=== PATIENT | female | born 1955 | race Caucasian/White ===

== ENCOUNTER → 2017-10-31 13:50 | Outpatient (CLI) | payer OTHER, SELFPAY ==
[2017-10-31 13:57] LABS: Bacteria Urine None Seen; RBC Urine None Seen (0-5/HPF); WBC Urine None Seen (0-5/HPF)
[2017-10-31 14:51] LABS: Add Manual Diff / Slide Review NO; Basophils Percent Auto 0.7 % (0-2); Eosinophils Percent Auto 1.7 % (2-4); Hematocrit 39.2 % (36-46); Lymphocytes Percent Auto 18.3 % (25-40); Mean Corpuscular HGB Conc 33.1 % (30-36); Mean Corpuscular Hemoglobin 29.6 PG (26-34); Mean Corpuscular Volume 89.6 fL (80-100); Monocytes Percent Auto 7.2 % (3-14); Neutrophils Absolute Auto 5300 /uL (3000-5900); Neutrophils Percent Auto 72.1 % (50-75); Platelet Count 292 X10^3/uL (150-400); Red Blood Cell Count 4.38 X10^6/uL (4.0-5.2); Red Cell Distribution Width 14.7 % (11.6-14.8); White Blood Cell Count 7.4 X10^3/uL (4.5-11.0)
[2017-10-31 15:21] LABS: Alanine Aminotransferase 21 IU/L (9-52); Albumin Globulin Ratio 1.5 (1.0-2.8); Alkaline Phosphatase 59 U/L (38-126); Aspartate Aminotransferase 18 IU/L (14-36); BUN Creatinine Ratio 18.8 (6-22); Bilirubin Total 0.8 mg/dL (0.2-1.3); Blood Urea Nitrogen 15 mg/dL (7-17); Calcium 8.9 mg/dL (8.4-10.2); Carbon Dioxide 30 mmol/L (22-32); Chloride 97 mmol/L (98-107); Estimated Glomerular Filt Rate > 60.0 mL/min (>60); Globulin 2.7 g/dL (1.7-4.1); Glucose 123 mg/dL (80-110); HEMOLYSIS < 15 (0-50); Potassium 3.7 mmol/L (3.4-5.1); Sodium 135 mmol/L (137-145); Total Protein 6.7 g/dL (6.3-8.2)
[2017-10-31 15:22] LABS: Appearance Urine UA CLEAR; Bilirubin Urine UA NEGATIVE (NEGATIVE); Color Urine UA YELLOW; Glucose Urine UA NEGATIVE (Normal); Ketones Urine UA NEGATIVE (NEGATIVE); Leukocyte Esterase Urine UA NEGATIVE (NEGATIVE); Nitrite Urine UA Negative (Negative); Occult Blood Urine UA NEGATIVE (Negative); Protein Urine UA NEGATIVE (Negative); Specific Gravity Urine UA <=1.005 (1.000-1.035); Urobilinogen Urine UA 0.2 E.U./dL (0.2); pH Urine UA 6.5 (4.5-8.0)
[2017-10-31 16:07] LABS: Culture Indicated Urine Cult Not Indicated; Squamous Epithelial Cell Urine 0-1 /HPF
[2017-10-31 17:55] LABS: Hemoglobin A1C% w Est Avg Glu 5.7 % (4.0-6.0)
== END ==
PROVIDERS: Family Provider Family Medicine; PCP Family Medicine; Visit Provider Internal Medicine
DX: R63.8 Other symptoms and signs concerning food and fluid intake (principal); R53.83 Other fatigue; R39.11 Hesitancy of micturition; R73.9 Hyperglycemia, unspecified
CPT/HCPCS: 36415; 80053; 81001; 83036; 84443; 85025

== ENCOUNTER → 2018-04-12 11:28 | Outpatient (CLI) | payer OTHER, SELFPAY ==
[2018-04-12 12:43] LABS: Appearance Urine UA CLEAR; Bilirubin Urine UA NEGATIVE (NEGATIVE); Color Urine UA YELLOW; Glucose Urine UA NEGATIVE (Normal); Ketones Urine UA NEGATIVE (NEGATIVE); Leukocyte Esterase Urine UA NEGATIVE (NEGATIVE); Nitrite Urine UA NEGATIVE (Negative); Occult Blood Urine UA TRACE-INTACT (Negative); Protein Urine UA NEGATIVE (Negative); Urobilinogen Urine UA 0.2 E.U./dL (0.2); pH Urine UA 5.5 (4.5-8.0)
[2018-04-12 13:10] LABS: Bacteria Urine Moderate (10-30); RBC Urine 0-1/HPF (0-5/HPF); Squamous Epithelial Cell Urine 0-1 /HPF; WBC Urine 5-10/HPF (0-5/HPF)
[2018-04-12 13:11] LABS: Culture Indicated Urine Specimen Cultured
== END ==
PROVIDERS: Family Provider Family Medicine; PCP Family Medicine; Visit Provider Family Medicine
DX: R30.0 Dysuria (principal)
CPT/HCPCS: 81001; 87077; 87086; 87186

== ENCOUNTER 2018-05-01 15:15 | Outpatient (RCR) | payer OTHER, SELFPAY ==
--- NOTE | 2018-04-11 11:19 | PT.OIE ---
Current Diagnoses Unspecified abdominal pain (04/11/18) Hesitancy of micturition (04/11/18) Feeling of incomplete bladder emptying (04/11/18) Urgency of urination (04/11/18) Past Medical History (Last Updated 02/14/18 @ 09:02 by Ирина Otero MD) GERD (gastroesophageal reflux disease) (Chronic) Anxiety and depression (Chronic) Autoimmune disorder (Chronic) Endometriosis (Chronic) Lichen sclerosus (Chronic) Past Surgical History (Last Updated 09/21/17 @ 09:18 by Paola Ramos) S/P total hysterectomy and BSO (bilateral salpingo-oophorectomy) (Resolved ~1994) Provider Visit Care Team Role Provider Type Ирина Otero MD Primary Care Provider Physician Specialty: [facility] Practice Address: [address] [place] [address] Email: [email or web address] Dona Stahl MD Family Provider Physician Specialty: [facility] Practice Address: [address] [place] [address] Email: [email or web address] Rebecca Allen MD Attending Provider Physician Specialty: Urology Address: [address] [place], [place] [id number] Email: Physical Therapy Initial Evaluation PT-OP-A Visit Information Start: 04/11/18 10:58 Freq: Status: Active Protocol: Document 04/11/18 10:58 [facility] (Rec: 04/11/18 11:19 [facility] [email or web address]) Out-Patient Physical Therapy Visit Information Visit Information Visit Type Initial Evaluation Visit Start Time 10:00 Visit Stop Time 10:45 Total Visit Minutes 45 Visit Number 1 Evaluation Information Evaluation Date 04/11/18 PT-OP-B Current Condition Start: 04/11/18 10:58 Freq: Status: Active Protocol: Document 04/11/18 10:58 [facility] (Rec: 04/11/18 11:19 [facility] [email or web address]) Current Condition History of Current Condition Onset Date worsening in the past several years Current Complaints c/o pelvic floor weakness, bladder frequency, pain with intercourse History of Current Condition Isela is a 62 year old female who has been experiencing bladder frequency and urgency as well as pain with penetration with intercourse. She notes she has not had iintercourse in over 10 years and has a new partner. [place] has been difficult as her muscles are not wanting to stretch. She has been using a vaginal dilator to help stretch. She also notes hesitancy with voiding at times and that it can take awhile to fully empty her bladder. Past medical history includes hysterectomy and appendix removal in 1993, gall bladder removal, osteopenia, back pain, depression Treatment Goals Patient/Caregiver Goals improve strength and flexibility of the pelvic floor muscles, reduce hesitancy with voiding and decrease pain with intercourse PT-OP-I Pelvic Floor Start: 04/11/18 10:58 Freq: Status: Active Protocol: Document 04/11/18 10:58 [facility] (Rec: 04/11/18 11:19 [facility] [email or web address]) Pelvic Floor Assessment Pelvic Clock Pelvic Clock 3-6 Guarding Pelvic Clock 6-9 Guarding Pelvic Clock Other posterior pelvic wall guarding , difficulty relaxing the pelvic floor following a contraction SEMG (uV) Baseline 3.7 10 Second Contraction 8.8 Recruitment Pattern Good Relaxation Fair Holding Fair Stability of Hold Fair SEMG Stability of Rest Fair Contraction Ability Voluntary Relaxation Weak Manual Muscle Testing Left 3 Manual Muscle Testing Right 3 Manual Muscle Testing Anterior 3 Manual Muscle Testing Posterior 3 Muscle Endurance (Seconds) 4 Comments Pelvic Floor Comments poor endurance of the pelvic floor and elevated resting tone on EMG biofeedback PT-OP-Q Treatments Start: 04/11/18 10:58 Freq: Status: Active Protocol: Document 04/11/18 10:58 [facility] (Rec: 04/11/18 11:19 [facility] [email or web address]) Therapeutic Exercises Supine Exercises 2 Supine Exercise Name pelvic floor long homes Reps/Minutes gave 10 second holds with 20 sec relaxation for home 2 xms per day 1 Supine Exercise Name modified pelvic floor stretch and piriformis stretch PT-OP-T Assessment and Plan Start: 04/11/18 10:58 Freq: Status: Active Protocol: Document 04/11/18 10:58 [facility] (Rec: 04/11/18 11:19 [facility] [email or web address]) Physical Therapy Assessment Rehab Potential Rehabilitation Potential Excellent Evaluation Complexity Number of Personal Factors/Comorbidities 0 Number of Body Systems Impaired 1-2 Clinical Presentation at Evaluation Stable Impairments Impairments Pain Soft Tissue Mobility Strength Tone Other Impairments pain with intercourse, slow urine stream, urgency Goals Four Impairment urinary urgency and hesitancy with voiding Assisted Goal (LTG) with improved resting tone and strength of the pelvic floor Isela reports improved urinary stream and decreased urgency LTG Duration 8 weeks Three Impairment decreased pelvic floor endurance Short Term Goal (STG) Improve endurance of the pelvic floor to 10 seconds in supine STG Duration 4-5 weeks Two Impairment elevated tone of the pelvic floor at rest Short Term Goal (STG) Isela is given instructions in dilator use and with her stretches and EMG biofeedback she is able to relax to baseline STG Duration 4 weeks One Impairment pain with intercourse Guard Lieutenant Goal (LTG) Isela is give a home program to improve blood flow into the pelvic floor muscles and a stertching program for her hips and pelvis to help reduce the tone in her pelvic floor at rest. She is trained on relaxed awareness of her pelvic floor with EMG biofeedback. She is able to resume intercourse without pain LTG Duration 8 weeks Assessment Summary Assessment Isela presents to physical therapy today with symptoms of urinary urgency, hesitancy with voiding, pelvic floor weakness, and pain with intercourse. With examination she is able to facilitate all parts of the levator ani today however has difficulty with endurance and with relaxing her pelvic floor after contractions. I started her today with a few hip stretches and with EMG biofeedback both for down training of her resting tone and for endurance training. She responded well to this. We also reviewed dilator use as she has been using a size medium dilator for home. Isela is a good candidate for physical therapy Physical Therapy Plan Frequency and Duration Frequency of Treatment 1x/Week Duration of Treatment 8 weeks Plan of Care Start Date 04/11/18 Plan of Care End Date 06/06/18 Therapeutic Interventions Therapeutic Interventions Home Exercise Program Manual Therapy Neuromuscular Re-education Patient/Caregiver Education Self-Care/Home Management Soft Tissue Mobilization Therapeutic Exercises
--- NOTE | 2018-04-11 11:19 | PT.OPPOC ---
Current Diagnoses Unspecified abdominal pain (04/11/18) Hesitancy of micturition (04/11/18) Feeling of incomplete bladder emptying (04/11/18) Urgency of urination (04/11/18) Provider Visit Care Team Role Provider Type Ирина Otero MD Primary Care Provider Physician Specialty: Family Practice Address: [address] [place] [id number] Email: [email or web address] Dona Stahl MD Family Provider Physician Specialty: Family Practice Address: [address] [place] [address], [id number] Email: [email or web address] Rebecca Allen MD Attending Provider Physician Specialty: Urology Address: [address] [place] [address], [phone] Email: Plan Of Care PT-OP-T Assessment and Plan Start: 04/11/18 10:58 Freq: Status: Active Protocol: Document 04/11/18 10:58 [facility] (Rec: 04/11/18 11:19 [facility] [email or web address]) Physical Therapy Assessment Rehab Potential Rehabilitation Potential Excellent Evaluation Complexity Number of Personal Factors/Comorbidities 0 Number of Body Systems Impaired 1-2 Clinical Presentation at Evaluation Stable Impairments Impairments Pain Soft Tissue Mobility Strength Tone Other Impairments pain with intercourse, slow urine stream, urgency Goals Four Impairment urinary urgency and hesitancy with voiding Rental Coordinator Goal (LTG) with improved resting tone and strength of the pelvic floor Isela reports improved urinary stream and decreased urgency LTG Duration 8 weeks Three Impairment decreased pelvic floor endurance Short Term Goal (STG) Improve endurance of the pelvic floor to 10 seconds in supine STG Duration 4-5 weeks Two Impairment elevated tone of the pelvic floor at rest Short Term Goal (STG) Isela is given instructions in dilator use and with her stretches and EMG biofeedback she is able to relax to baseline STG Duration 4 weeks One Impairment pain with intercourse Rental Coordinator Goal (LTG) Isela is give a home program to improve blood flow into the pelvic floor muscles and a stertching program for her hips and pelvis to help reduce the tone in her pelvic floor at rest. She is trained on relaxed awareness of her pelvic floor with EMG biofeedback. She is able to resume intercourse without pain LTG Duration 8 weeks Assessment Summary Assessment Isela presents to physical therapy today with symptoms of urinary urgency, hesitiancy with voiding, pelvic floor weakness, and pain with intercourse. With examination she is able to facilitate all parts of the levator ani today however has difficulty with endurance and with relaxing her pelvic floor after contractions. I started her today with a few hip stretches and with EMG biofeedback both for downtraining of her resting tone and for endurance training. She responded well to this. We also reviewed dilator use as she has been using a size medium dialator for home. Isela is a good candidate for physical therapy Physical Therapy Plan Frequency and Duration Frequency of Treatment 1x/Week Duration of Treatment 8 weeks Plan of Care Start Date 04/11/18 Plan of Care End Date 06/06/18 Therapeutic Interventions Therapeutic Interventions Home Exercise Program Manual Therapy Neuromuscular Re-education Patient/Caregiver Education Self-Care/Home Management Soft Tissue Mobilization Therapeutic Exercises Plan of Care Dates Plan of Care Start Date 04/11/18 Plan of Care End Date 06/06/18 Please Sign and Return: I have reviewed this Plan of Care and certify that the skilled therapy services above are required to meet the patient?s needs. Physician Signature Date Printed Name and Credentials Clinical Instructor Signature Printed Name and Credentials
--- NOTE | 2018-04-25 13:11 | PT.OTN ---
Current Diagnoses Unspecified abdominal pain (04/25/18) Hesitancy of micturition (04/25/18) Feeling of incomplete bladder emptying (04/25/18) Urgency of urination (04/25/18) Physical Therapy Treatment Note PT-OP-A Visit Information Start: 04/11/18 10:58 Freq: Status: Active Protocol: Document 04/25/18 12:53 [facility] (Rec: 04/25/18 13:11 [facility] [email or web address]) Out-Patient Physical Therapy Visit Information Visit Information Visit Type Treatment Note Visit Start Time 11:30 Visit Stop Time 12:15 Total Visit Minutes 45 Visit Number 2 PT-OP-B Current Condition Start: 04/11/18 10:58 Freq: Status: Active Protocol: Document 04/11/18 10:58 [facility] (Rec: 04/11/18 11:19 [facility] [email or web address]) Current Condition History of Current Condition Onset Date worsening in the past several years Current Complaints c/o pelvic floor weakness, bladder frequency, pain with intercourse History of Current Condition Isela is a 62 year old female who has been experiencing bladder frequency and urgency as well as pain with penetration with intercourse. She notes she has not had iintercourse in over 10 years and has a new partner. [place] has been difficult as her muscles are not wanting to stretch. She has been using a vaginal dilator to help stretch. She also notes hesitancy with voiding at times and that it can take awhile to fully empty her bladder. Past medical history includes hysterectomy and appendix removal in 1993, gall bladder removal, osteopenia, back pain, depression Treatment Goals Patient/Caregiver Goals improve strength and flexibility of the pelvic floor muscles, reduce hesitancy with voiding and decrease pain with intercourse PT-OP-C Subjective Start: 04/11/18 10:58 Freq: Status: Active Protocol: Document 04/25/18 12:53 [facility] (Rec: 04/25/18 13:11 [facility] [email or web address]) OP-PT Subjective Patient Comments Patient Comments Isela reports she has been working on stretching and trying to sit with sitting bones spread. She would like the next size up on dilators PT-OP-I Pelvic Floor Start: 04/11/18 10:58 Freq: Status: Active Protocol: Document 04/11/18 10:58 [facility] (Rec: 04/11/18 11:19 [facility] [email or web address]) Pelvic Floor Assessment Pelvic Clock Pelvic Clock 3-6 Guarding Pelvic Clock 6-9 Guarding Pelvic Clock Other posterior pelvic wall guarding , difficulty relaxing the pelvic floor following a contraction SEMG (uV) Baseline 3.7 10 Second Contraction 8.8 Recruitment Pattern Good Relaxation Fair Holding Fair Stability of Hold Fair SEMG Stability of Rest Fair Contraction Ability Voluntary Relaxation Weak Manual Muscle Testing Left 3 Manual Muscle Testing Right 3 Manual Muscle Testing Anterior 3 Manual Muscle Testing Posterior 3 Muscle Endurance (Seconds) 4 Comments Pelvic Floor Comments poor endurance of the pelvic floor and elevated resting tone on EMG biofeedback PT-OP-Q Treatments Start: 04/11/18 10:58 Freq: Status: Active Protocol: Document 04/25/18 12:53 [facility] (Rec: 04/25/18 13:11 [facility] [email or web address]) Therapeutic Exercises Supine Exercises 2 Supine Exercise Name held today as Isela did not bring the electrode with her 1 Supine Exercise Name modified pelvic floor stretch and piriformis stretch Other Exercises 3 Other Exercise Name mike pose Reps/Minutes hold 1-2 minutes 2 Other Exercise Name rock backs Reps/Minutes 10 1 Other Exercise Name quadraped cat cow Reps/Minutes 10 reps Manual Therapy Treatment Soft Tissue Mobilization 1 Body Location adductor release bilaterally and medial ischial release Comments left adductor tightness greater than right PT-OP-T Assessment and Plan Start: 04/11/18 10:58 Freq: Status: Active Protocol: Document 04/25/18 12:53 [facility] (Rec: 04/25/18 13:11 [facility] [email or web address]) Physical Therapy Assessment Assessment Summary Assessment Worked on breath technique with stretches and added in cat cow, rock backs, and mike pose. Gave Isela the size large dilator to stretch with at home. She was very tight in her adductors left greater than right so we added in a stretch adductors as well. She tends to be cold much of the time so we talked about exercise to warm up her body and decrease tightness. She forgot her electrode today and will bring it next visit so we will resume EMG biofeedback then. Physical Therapy Plan Frequency and Duration Frequency of Treatment 1x/Week Duration of Treatment 8 weeks Plan of Care Start Date 04/11/18 Plan of Care End Date 06/06/18 Therapeutic Interventions Therapeutic Interventions Home Exercise Program Manual Therapy Neuromuscular Re-education Patient/Caregiver Education Self-Care/Home Management Soft Tissue Mobilization Therapeutic Exercises Next Visit Focus/Plan Next Note Type Treatment Note Next Visit Plan work on EMG biofeedback down training of the pelvic floor next visit
--- NOTE | 2018-05-01 17:46 | PT.OTN ---
Current Diagnoses Unspecified abdominal pain (05/01/18) Hesitancy of micturition (05/01/18) Feeling of incomplete bladder emptying (05/01/18) Urgency of urination (05/01/18) Physical Therapy Treatment Note PT-OP-A Visit Information Start: 04/11/18 10:58 Freq: Status: Active Protocol: Document 05/01/18 17:36 [facility] (Rec: 05/01/18 17:46 [facility] [email or web address]) Out-Patient Physical Therapy Visit Information Visit Information Visit Type Treatment Note Visit Start Time 15:15 Visit Stop Time 16:00 Total Visit Minutes 45 Visit Number 3 Evaluation Information Evaluation Date 04/11/18 PT-OP-B Current Condition Start: 04/11/18 10:58 Freq: Status: Active Protocol: Document 04/11/18 10:58 [facility] (Rec: 04/11/18 11:19 [facility] [email or web address]) Current Condition History of Current Condition Onset Date worsening in the past several years Current Complaints c/o pelvic floor weakness, bladder frequency, pain with intercourse History of Current Condition Isela is a 62 year old female who has been experiencing bladder frequency and urgency as well as pain with penetration with intercourse. She notes she has not had iintercourse in over 10 years and has a new partner. [place] has been difficult as her muscles are not wanting to stretch. She has been using a vaginal dilator to help stretch. She also notes hesitancy with voiding at times and that it can take awhile to fully empty her bladder. Past medical history includes hysterectomy and appendix removal in 1993, gall bladder removal, osteopenia, back pain, depression Treatment Goals Patient/Caregiver Goals improve strength and flexibility of the pelvic floor muscles, reduce hesitancy with voiding and decrease pain with intercourse PT-OP-C Subjective Start: 04/11/18 10:58 Freq: Status: Active Protocol: Document 05/01/18 17:36 [facility] (Rec: 05/01/18 17:46 [facility] [email or web address]) OP-PT Subjective Patient Comments Patient Comments No new complaints, working on her exercises. She reports she needs to modifiy some of the stretches to avoid irritation in her back PT-OP-I Pelvic Floor Start: 04/11/18 10:58 Freq: Status: Active Protocol: Document 04/11/18 10:58 [facility] (Rec: 04/11/18 11:19 [facility] [email or web address]) Pelvic Floor Assessment Pelvic Clock Pelvic Clock 3-6 Guarding Pelvic Clock 6-9 Guarding Pelvic Clock Other posterior pelvic wall guarding , difficulty relaxing the pelvic floor following a contraction SEMG (uV) Baseline 3.7 10 Second Contraction 8.8 Recruitment Pattern Good Relaxation Fair Holding Fair Stability of Hold Fair SEMG Stability of Rest Fair Contraction Ability Voluntary Relaxation Weak Manual Muscle Testing Left 3 Manual Muscle Testing Right 3 Manual Muscle Testing Anterior 3 Manual Muscle Testing Posterior 3 Muscle Endurance (Seconds) 4 Comments Pelvic Floor Comments poor endurance of the pelvic floor and elevated resting tone on EMG biofeedback PT-OP-Q Treatments Start: 04/11/18 10:58 Freq: Status: Active Protocol: Document 05/01/18 17:36 [facility] (Rec: 05/01/18 17:46 [facility] [email or web address]) Therapeutic Exercises Supine Exercises 5 Supine Exercise Name supine adductor stretch with a strap 4 Supine Exercise Name roll outs with theraband Equipment Used level 2 theraband Reps/Minutes 3 x 10 3 Supine Exercise Name quick contractions Reps/Minutes 2 sec holds with 4 second relaxation 2 Supine Exercise Name pelvic floor long holds Reps/Minutes 10 second hold time with 10 second relaxation Other Exercises 3 Other Exercise Name mike pose Reps/Minutes hold 1-2 minutes 2 Other Exercise Name rock backs Reps/Minutes 10 1 Other Exercise Name quadraped cat cow Reps/Minutes 10 reps PT-OP-T Assessment and Plan Start: 04/11/18 10:58 Freq: Status: Active Protocol: Document 05/01/18 17:36 [facility] (Rec: 05/01/18 17:46 [facility] [email or web address]) Physical Therapy Assessment Assessment Summary Assessment able to relax to baseline now on EMG biofeedback, added in quick contractions and Isela tolerated these well without any symptoms. Also added roll outs to begin working the lateral hips Physical Therapy Plan Frequency and Duration Frequency of Treatment 1x/Week Duration of Treatment 8 weeks Plan of Care Start Date 04/11/18 Plan of Care End Date 06/06/18 Therapeutic Interventions Therapeutic Interventions Home Exercise Program Manual Therapy Neuromuscular Re-education Patient/Caregiver Education Self-Care/Home Management Soft Tissue Mobilization Therapeutic Exercises Next Visit Focus/Plan Next Note Type Treatment Note Next Visit Plan recheck in with pain next visit as sIela was able to rest at baseline today on EMG biofeedback
--- NOTE | 2019-03-04 12:12 | PT.OPDS ---
Current Diagnoses Unspecified abdominal pain (05/01/18) Hesitancy of micturition (05/01/18) Feeling of incomplete bladder emptying (05/01/18) Urgency of urination (05/01/18) Visit Care Team Role Provider Type Ирина Otero MD Primary Care Provider Physician Specialty: Family Practice Address: [address] [place] [address], [phone] Email: [email or web address] Dona Stahl MD Family Provider Physician Specialty: Family Practice Address: [address] [place] [address], [phone] Email: [email or web address] Rebecca Allen MD Attending Provider Non-Staff Specialty: Urology Address: [address] [place] [address], [phone] Email: Visit Number Visit Number 3 Discharge Summary PT-OP-B Current Condition Start: 04/11/18 10:58 Freq: Status: Active Protocol: Document 04/11/18 10:58 [facility] (Rec: 04/11/18 11:19 [facility] [email or web address]) Current Condition History of Current Condition Onset Date worsening in the past several years Current Complaints c/o pelvic floor weakness, bladder frequency, pain with intercourse History of Current Condition Isela is a 62 year old female who has been experiencing bladder frequency and urgency as well as pain with penetration with intercourse. She notes she has not had iintercourse in over 10 years and has a new partner. [place] has been difficult as her muscles are not wanting to stretch. She has been using a vaginal dilator to help stretch. She also notes hesitancy with voiding at times and that it can take awhile to fully empty her bladder. Past medical history includes hysterectomy and appendix removal in 1993, gall bladder removal, osteopenia, back pain, depression Treatment Goals Patient/Caregiver Goals improve strength and flexibility of the pelvic floor muscles, reduce hesitancy with voiding and decrease pain with intercourse PT-OP-C Subjective Start: 04/11/18 10:58 Freq: Status: Active Protocol: Document 05/01/18 17:36 [facility] (Rec: 05/01/18 17:46 [facility] [email or web address]) OP-PT Subjective Patient Comments Patient Comments No new complaints, working on her exercises. She reports she needs to modifiy some of the stretches to avoid irritation in her back PT-OP-I Pelvic Floor Start: 04/11/18 10:58 Freq: Status: Active Protocol: Document 04/11/18 10:58 [facility] (Rec: 04/11/18 11:19 [facility] [email or web address]) Pelvic Floor Assessment Pelvic Clock Pelvic Clock 3-6 Guarding Pelvic Clock 6-9 Guarding Pelvic Clock Other posterior pelvic wall guarding , difficulty relaxing the pelvic floor following a contraction SEMG (uV) Baseline 3.7 10 Second Contraction 8.8 Recruitment Pattern Good Relaxation Fair Holding Fair Stability of Hold Fair SEMG Stability of Rest Fair Contraction Ability Voluntary Relaxation Weak Manual Muscle Testing Left 3 Manual Muscle Testing Right 3 Manual Muscle Testing Anterior 3 Manual Muscle Testing Posterior 3 Muscle Endurance (Seconds) 4 Comments Pelvic Floor Comments poor endurance of the pelvic floor and elevated resting tone on EMG biofeedback PT-OP-T Assessment and Plan Start: 04/11/18 10:58 Freq: Status: Active Protocol: Document 03/04/19 12:11 [facility] (Rec: 03/04/19 12:12 [facility] [email or web address]) Physical Therapy Plan Discharge Physical Therapy Discharge Reasons No Longer Attending PT Discharge Comments pt has not been seen in PT in the past 10 months, she will be discharged from PT at this time
== END 2019-03-08 11:25 ==
LOC: PHYS 15:15
PROVIDERS: Family Provider Family Medicine; PCP Family Medicine; Visit Provider Urology
DX: R39.14 Feeling of incomplete bladder emptying (principal); R10.9 Unspecified abdominal pain; R39.11 Hesitancy of micturition; R39.15 Urgency of urination
CPT/HCPCS: 97110; 97140; 97161

== ENCOUNTER → 2018-05-02 16:26 | Outpatient (CLI) | payer OTHER, SELFPAY ==
[2018-05-02 16:35] LABS: RBC Urine None Seen (0-5/HPF)
[2018-05-02 16:40] LABS: Appearance Urine UA CLEAR; Bilirubin Urine UA NEGATIVE (NEGATIVE); Color Urine UA YELLOW; Glucose Urine UA NEGATIVE (Negative); Ketones Urine UA NEGATIVE (NEGATIVE); Leukocyte Esterase Urine UA 1+ (NEGATIVE); Nitrite Urine UA NEGATIVE (Negative); Occult Blood Urine UA TRACE-INTACT (Negative); Protein Urine UA NEGATIVE (Negative); Specific Gravity Urine UA 1.025 (1.000-1.035); Urobilinogen Urine UA 0.2 E.U./dL (0.2)
[2018-05-02 16:46] LABS: Bacteria Urine Many (>30); Culture Indicated Urine Specimen Cultured; Squamous Epithelial Cell Urine 1-5 /HPF; WBC Urine 10-30/HPF (0-5/HPF)
== END ==
PROVIDERS: PCP Family Medicine; Visit Provider Family Medicine
DX: R30.0 Dysuria (principal)
CPT/HCPCS: 81001; 87077; 87086; 87186

== ENCOUNTER → 2018-05-21 16:07 | Outpatient (CLI) | payer OTHER, SELFPAY ==
[2018-05-21 16:26] LABS: Appearance Urine UA CLEAR; Bilirubin Urine UA NEGATIVE (NEGATIVE); Color Urine UA YELLOW; Glucose Urine UA NEGATIVE (Negative); Ketones Urine UA NEGATIVE (NEGATIVE); Leukocyte Esterase Urine UA NEGATIVE (NEGATIVE); Nitrite Urine UA NEGATIVE (Negative); Occult Blood Urine UA 1+ (Negative); Protein Urine UA NEGATIVE (Negative); Urobilinogen Urine UA 0.2 E.U./dL (0.2)
[2018-05-21 16:54] LABS: Bacteria Urine Occasional (0-1); Culture Indicated Urine Cult Not Indicated; RBC Urine 0-1/HPF (0-5/HPF); Squamous Epithelial Cell Urine 1-5 /HPF; WBC Urine 1-5/HPF (0-5/HPF)
== END ==
PROVIDERS: PCP Family Medicine; Visit Provider Family Medicine
DX: N39.0 Urinary tract infection, site not specified (principal); A49.9 Bacterial infection, unspecified
CPT/HCPCS: 81001

== ENCOUNTER → 2018-10-29 16:23 | Outpatient (CLI) | payer OTHER, SELFPAY ==
--- NOTE | 2018-10-29 16:25 | DI.RAD.S_ITS ---
PROCEDURE: XR FINGER RT MIN 2V INDICATIONS: Swelling DIP right little finger - no hx of injury TECHNIQUE: AP hand, 2 views of the fifth finger(s) acquired. COMPARISON: None. FINDINGS: Bones: There is appearance of slight subluxation at the fifth PIP joint. No visualized fracture. Soft tissues: No suspicious soft tissue calcifications. IMPRESSION: Slight fifth digit DIP subluxation. No visualized acute fracture or dislocation. However, if clinical concern and/or pain persist, short interval imaging followup in 7-10 days is recommended, as occult injury cannot be definitively excluded. Dictated by: Eli Shah M.D. on 10/29/2018 at 16:49 Approved by: Eli Shah M.D. on 10/29/2018 at 16:49
== END ==
PROVIDERS: PCP Physician Assistant; Visit Provider Physician Assistant
DX: M25.441 Effusion, right hand (principal); S63.22 Subluxation of unspecified interphalangeal joint of finger
CPT/HCPCS: 73140

== ENCOUNTER → 2019-02-12 16:08 | Outpatient (CLI) | payer OTHER, SELFPAY ==
[2019-02-14 16:22] LABS: Fecal Immunochemical Test NOT DETECTED (NOT DETECTED)
== END ==
PROVIDERS: PCP Physician Assistant; Visit Provider Physician Assistant
DX: Z12.11 Encounter for screening for malignant neoplasm of colon (principal)
CPT/HCPCS: 82274

== ENCOUNTER → 2019-05-06 08:31 | Outpatient (CLI) | payer OTHER, SELFPAY ==
[2019-05-06 09:44] LABS: Add Manual Diff / Slide Review NO; Basophils Absolute Auto 100 /uL (0-100); Basophils Percent Auto 0.8 % (0-2); Eosinophils Absolute Auto 100 /uL (0-450); Eosinophils Percent Auto 2.4 % (2-4); Hematocrit 38.1 % (36-46); Hemoglobin 12.7 g/dL (12.0-16.0); Lymphocytes Absolute Auto 1100 /uL (1100-4500); Lymphocytes Percent Auto 17.1 % (25-40); Mean Corpuscular HGB Conc 33.2 % (30-36); Mean Corpuscular Hemoglobin 29.9 PG (26-34); Mean Corpuscular Volume 90.1 fL (80-100); Monocytes Absolute Auto 500 /uL (0-900); Monocytes Percent Auto 8.3 % (3-14); Neutrophils Absolute Auto 4500 /uL (1500-7000); Neutrophils Percent Auto 71.4 % (50-75); Platelet Count 277 X10^3/uL (150-400); Red Blood Cell Count 4.23 X10^6/uL (4.0-5.2); Red Cell Distribution Width 14.1 % (11.6-14.8); White Blood Cell Count 6.2 X10^3/uL (4.5-11.0)
[2019-05-06 10:13] LABS: Alanine Aminotransferase 15 IU/L (<35); Albumin 4.3 g/dL (3.5-5.0); Albumin Globulin Ratio 1.6 (1.0-2.8); Alkaline Phosphatase 71 U/L (38-126); Aspartate Aminotransferase 21 IU/L (14-36); BUN Creatinine Ratio 31.4 (6-22); Bilirubin Total 0.8 mg/dL (0.2-1.3); Blood Urea Nitrogen 22 mg/dL (7-17); Calcium 9.5 mg/dL (8.4-10.2); Carbon Dioxide 32 mmol/L (22-32); Chloride 101 mmol/L (98-107); Estimated Glomerular Filt Rate > 60.0 mL/min (>60); Globulin 2.7 g/dL (1.7-4.1); Glucose 98 mg/dL (80-110); HEMOLYSIS < 15 (0-50); Potassium 4.8 mmol/L (3.4-5.1); Sodium 139 mmol/L (137-145)
[2019-05-06 10:20] LABS: Vitamin D 25 Hydroxy (D3) 33.4 ng/mL (30.0-100.0)
[2019-05-06 10:35] LABS: Thyroid Stimulating Hormone 2.34 uIU/mL (0.47-4.68)
[2019-05-06 10:58] LABS: Vitamin B12 345 pg/mL (239-931)
== END ==
PROVIDERS: PCP Physician Assistant; Visit Provider Physician Assistant
DX: L65.9 Nonscarring hair loss, unspecified (principal); R11.0 Nausea; R53.83 Other fatigue; Z82.69 Family history of other diseases of the musculoskeletal system and connective tissue
CPT/HCPCS: 36415; 80053; 82306; 82607; 84443; 85025

== ENCOUNTER → 2019-06-05 16:14 | Outpatient (CLI) | payer OTHER, SELFPAY ==
[2019-06-05 18:58] LABS: Erythrocyte Sedimentation Rate 7 MM/HR (0-20)
== END ==
PROVIDERS: PCP Physician Assistant; Referring Provider Physician Assistant Medical; Visit Provider Physician Assistant Medical
DX: L65.9 Nonscarring hair loss, unspecified (principal)
CPT/HCPCS: 36415; 85651

== ENCOUNTER → 2019-10-28 17:03 | Outpatient (CLI) | payer OTHER, SELFPAY ==
--- NOTE | 2019-10-28 17:05 | DI.RAD.S_ITS ---
PROCEDURE: XR SHOULDER LT MIN 2V INDICATIONS: Shoulder pain status post fall TECHNIQUE: Brain views of the shoulder were acquired. COMPARISON: [facility], , SHOULDER MINIMUM 2VIEW RIGHT, 09/22/2014, 16:14. FINDINGS: Bones: No fractures or dislocations. No suspicious bony lesions. Visualized ribs appear intact. Soft tissues: No suspicious soft tissue calcifications. IMPRESSION: Moderate a.c. joint osteoarthritis. No trauma fell. Dictated by: Chris Wood M.D. on 10/29/2019 at 8:12 Approved by: Chris Wood M.D. on 10/29/2019 at 8:13
== END ==
PROVIDERS: PCP Family Medicine; Referring Provider Family Medicine; Visit Provider Family Medicine
DX: M25.512 Pain in left shoulder (principal); M19.012 Primary osteoarthritis, left shoulder
CPT/HCPCS: 73030

== ENCOUNTER 2020-11-05 15:15 | Outpatient (RCR) | payer OTHER, SELFPAY ==
--- NOTE | 2020-10-01 16:42 | PT.OIE ---
Current Diagnoses Low back pain (10/01/20) Past Medical History (Last Reviewed 07/01/20 @ 17:13 by Jj Vora DO) Anxiety and depression Autoimmune disorder Cyanocobalamin deficiency Endometriosis GERD (gastroesophageal reflux disease) Left shoulder pain Lichen sclerosus UTI (urinary tract infection) Past Surgical History (Last Reviewed 10/28/19 @ 17:09 by Jj Vora DO) S/P total hysterectomy and BSO (bilateral salpingo-oophorectomy) (~1994) Visit Care Team Role Provider Type ALEXEY Zaragoza Attending Provider Advanced Organ Tuner Electronic Family Provider Primary Care Provider Referring Provider Specialty: [facility] Practice Address: [address] [place] [address], [facility] Email: [email or web address] Physical [facility] Initial Evaluation PT-OP-A Visit Information Start: 10/01/20 15:15 Freq: Status: Active Protocol: Document 10/01/20 16:06 (Rec: 10/01/20 16:42 [email or web address]) Out-Patient Physical Therapy Visit Information Visit Information Visit Type Initial Evaluation Visit Start Time 15:15 Visit Stop Time 16:00 Total Visit Minutes 45 Visit Number 05/23 Number of TALENT ACQUISITION OPERATIONS MANAGER Visits 0 Evaluation Information Evaluation Date 10/01/20 Precautions Precautions depression PT-OP-B Current Condition Start: 10/01/20 15:15 Freq: Status: Active Protocol: Document 10/01/20 16:06 (Rec: 10/01/20 16:42 [email or web address]) Current Condition History of Current Condition Onset Date since last year Current Complaints chronic LBP, stiffness in the AM History of Current Condition Isela is a 65 yo female here for her chronic LBP with stiffness in the morning. She stated she has significant stiffness in the morning who has to bend over to walk a little before she can fully straighten herself. She needs to do stretching often and change of position to opens her back up. She notices her stiffness/ pain is slowly getting worse since the COVID pandemic started because she is more sedentary. Denies tingling/ numbness sensation but does have occasional numbness on both feet. (more often in sitting position). 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 Prior Treatments and Tests no imaging done Personal Factors Other Personal Factors That May Effect depression Therapy/Recovery PT-OP-C Subjective Start: 10/01/20 15:15 Freq: Status: Active Protocol: Document 10/01/20 16:06 (Rec: 10/01/20 16:42 [email or web address]) Patient Questionnaires Oswestry Low Back Index Oswestry Score 16 Oswestry Impairment 1 to 19% Impaired (Score 1-19) OP-PT Pain Assessment Location LBP Pain Location Details L5 region Scale Used Numeric (0 - 10) Description Aching Frequency Frequent Other Pain Aggravating Factors prolonged position Pain Alleviating Factors Exercise,Massage PT-OP-D Balance Start: 10/01/20 15:15 Freq: Status: Active Protocol: Document 10/01/20 16:06 HH (Rec: 10/01/20 16:42 [email or web address]) Balance Tests Single Limb Standing Single Limb- Right 8,12,15 Single Limb- Left 10,12,13 PT-OP-F Manual Assessment Start: 10/01/20 15:15 Freq: Status: Active Protocol: Document 10/01/20 16:06 (Rec: 10/01/20 16:42 [email or web address]) Manual Assessments Soft Tissue Assessment Soft Tissue Mobility Assessment significant toncity noted at paraspinals at L5 region R>L moderate toncity noted at gluteal muscle belly R>L PT-OP-H Neuro Start: 10/01/20 15:15 Freq: Status: Active Protocol: Document 10/01/20 16:06 HH (Rec: 10/01/20 16:42 [email or web address]) Sensation Evaluation Gross Sensation Gross Sensation WNL Comments Summary Comments pt c/o numbness on both feet more often in seated position Deep Tendon Reflex & Clonus Assessment Deep Tendon Reflex Bilateral Achilles Deep Tendon Reflex 2+ Normal Bilateral Patellar Deep Tendon Reflex 2+ Normal PT-OP-J Posture/Palpation/Skin Start: 10/01/20 15:15 Freq: Status: Active Protocol: Document 10/01/20 16:06 HH (Rec: 10/01/20 16:42 [email or web address]) Posture Evaluation Position Standing Head/C-Spine Posture Forward Head L-Spine Posture Increased Lordosis Shoulder Posture (L) Rounded,(R) Rounded PT-OP-K Range of Motion Start: 10/01/20 15:15 Freq: Status: Active Protocol: Document 10/01/20 16:06 HH (Rec: 10/01/20 16:42 [email or web address]) Lumbar Spine Range of Motion Lumbar Spine Active Degrees Comments toe touch test= 6 from the floor, flexion mostly from thoracic spine and hip. Lumbar flexion = neutral only SB to R= 23 inches from floor. SB to L= 22 inches from floor extension= shoulders meet heels (pressure pain noted) Hip Goniometric Range of Motion Hip Right Active Straight Leg Raise 60 Comments HS tightness noted Left Active Straight Leg Raise 58 Comments HS tightness noted PT-OP-L Special Tests Start: 10/01/20 15:15 Freq: Status: Active Protocol: Document 10/01/20 16:06 HH (Rec: 10/01/20 16:42 [email or web address]) Special Tests Lumbar Spine Special Tests Straight Leg Raise Test Results -ve Vertical Spine Loading Test Results -ve Slump Test Results -ve PT-OP-M Strength Start: 10/01/20 15:15 Freq: Status: Active Protocol: Document 10/01/20 16:06 HH (Rec: 10/01/20 16:42 [email or web address]) Hip Strength Hip Manual Muscle Testing Right Flexion (L2) 4 Good Extension (S1) 4 Good Abduction 4 Good Adduction 4 Good Left Flexion (L2) 4 Good Extension (S1) 4 Good Abduction 4 Good Adduction 4 Good Knee Strength Knee Manual Muscle Testing Right Flexion (S2) 4+ Good+ Extension (L3) 4+ Good+ Left Flexion (S2) 4+ Good+ Extension (L3) 4+ Good+ Ankle/Foot Strength Ankle and Foot Manual Muscle Testing Right Dorsiflexion (L4) 5 Normal Plantarflexion (S1) 5 Normal Left Dorsiflexion (L4) 5 Normal Plantarflexion (S1) 5 Normal PT-OP-Q Treatments Start: 10/01/20 15:15 Freq: Status: Active Protocol: Document 10/01/20 16:06 (Rec: 10/01/20 16:42 [email or web address]) Therapeutic Exercises Supine Exercises knee to chest Side bilateral Comments for hEP Sidelying Exercises open book Sidelying Exercise Name for LTR Side bilateral Comments for hEP PT-OP-T Assessment and Plan Start: 10/01/20 15:15 Freq: Status: Active Protocol: Document 10/01/20 16:06 (Rec: 10/01/20 16:42 [email or web address]) Physical Therapy Assessment Rehab Potential Rehabilitation Potential Excellent Evaluation Complexity Number of Personal Factors/Comorbidities 0 Number of Body Systems Impaired 1-2 Clinical Presentation at Evaluation Stable Impairments Impairments Activity Tolerance,Balance, Functional Activities, Functional Mobility,Gait,Pain, Posture,ROM,Sensation,Soft Tissue Mobility,Strength, Transfers Goals HEP Impairment pt does not ahve a HEP Short Term Goal (STG) pt will be compliant to complete daily HEP safely and independently to manage her back stiffness symptoms. STG Duration 4 weeks activity tolerance Impairment pt has been sedentary with increased back stiffness Short Term Goal (STG) pt will show improved activity tolerance to be able to walk 2 miles a day without increase in back pain STG Duration 4 weeks Residential Goal (LTG) pt will show improved activity tolerance to be able to walk 4 miles a day without increase in back pain LTG Duration 8 weeks mobility Impairment pt has very poor segmental lumbar flexion Short Term Goal (STG) pt will show improved segmental lumbar flexion to reach ankles during toe touch test STG Duration 4 weeks Mink Farmer Goal (LTG) pt will show improved segmental lumbar flexion to reach her toes during toe touch test. This allows pt to bend over for daily activites without increase in LBP Assessment Summary Assessment Isela is a 65 yo female here for chronic LBP and stiffness in the morning which has been getting worse since COVID pandemic started. 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 She presents lack of segmental lumbar flexion and needed cues to guide her movements. Provided knee to chest and open book stretches to pt to increase flexiblity in the morning. Pt will benefit from skilled therapy to improve her overall lumbar segmental mobility, stability and strength in order for her to return to her walking and hiking routine with her . Physical Therapy Plan Frequency and Duration Frequency of Treatment 1x/Week Duration of Treatment 8 weeks Plan of Care Start Date 10/01/20 Plan of Care End Date 11/30/20 Therapeutic Interventions Therapeutic Interventions Aquatic Therapy,Balance Training,Gait Training,Home Exercise Program,Manual Therapy,Neuromuscular Re- education,Patient/Caregiver Education,Self-Care/Home Management,Soft Tissue Mobilization,Taping, Therapeutic Activities, Therapeutic Exercises Modalities Cold Pack/Ice Massage,Electric Stimulation,Hot Packs, Infrared Therapy,Traction- Mechanical,Ultrasound Next Visit Focus/Plan Next Note Type Treatment Note Next Visit Plan review HEP segmental lumbar ROM ex knee to chest, open, book, pelvic tilt , cat camel, child pose
--- NOTE | 2020-10-01 16:42 | PT.OPPOC ---
Physical, Occupational & Speech Therapy At [facility] Current Diagnoses Low back pain (10/01/20) Visit Care Team Role Provider Type ALEXEY Zaragoza Attending Provider Advanced Packing And Final Assembly Supervisor Family Provider Primary Care Provider Referring Provider Specialty: Family Practice Address: [address] [place] [address], [facility] [place], [address] Email: [email or web address] Plan Of Care PT-OP-T Assessment and Plan Start: 10/01/20 15:15 Freq: Status: Active Protocol: Document 10/01/20 16:06 (Rec: 10/01/20 16:42 [email or web address]) Physical Therapy Assessment Rehab Potential Rehabilitation Potential Excellent Evaluation Complexity Number of Personal Factors/Comorbidities 0 Number of Body Systems Impaired 1-2 Clinical Presentation at Evaluation Stable Impairments Impairments Activity Tolerance,Balance, Functional Activities, Functional Mobility,Gait,Pain, Posture,ROM,Sensation,Soft Tissue Mobility,Strength, Transfers Goals HEP Impairment pt does not ahve a HEP Short Term Goal (STG) pt will be compliant to complete daily HEP safely and independently to manage her back stiffness symptoms. STG Duration 4 weeks activity tolerance Impairment pt has been sedentary with increased back stiffness Short Term Goal (STG) pt will show improved activity tolerance to be able to walk 2 miles a day without increase in back pain STG Duration 4 weeks Manager Star Goal (LTG) pt will show improved activity tolerance to be able to walk 4 miles a day without increase in back pain LTG Duration 8 weeks mobility Impairment pt has very poor segmental lumbar flexion Short Term Goal (STG) pt will show improved segmental lumbar flexion to reach ankles during toe touch test STG Duration 4 weeks Senior Care Goal (LTG) pt will show improved segmental lumbar flexion to reach her toes during toe touch test. This allows pt to bend over for daily activites without increase in LBP Assessment Summary Assessment Isela is a 65 yo female here for chronic LBP and stiffness in the morning which has been getting worse since COVID pandemic started. 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 She presents lack of segmental lumbar flexion and needed cues to guide her movements. Provided knee to chest and open book stretches to pt to increase flexiblity in the morning. Pt will benefit from skilled therapy to improve her overall lumbar segmental mobility, stability and strength in order for her to return to her walking and hiking routine with her . Physical Therapy Plan Frequency and Duration Frequency of Treatment 1x/Week Duration of Treatment 8 weeks Plan of Care Start Date 10/01/20 Plan of Care End Date 11/30/20 Therapeutic Interventions Therapeutic Interventions Aquatic Therapy,Balance Training,Gait Training,Home Exercise Program,Manual Therapy,Neuromuscular Re- education,Patient/Caregiver Education,Self-Care/Home Management,Soft Tissue Mobilization,Taping, Therapeutic Activities, Therapeutic Exercises Modalities Cold Pack/Ice Massage,Electric Stimulation,Hot Packs, Infrared Therapy,Traction- Mechanical,Ultrasound Next Visit Focus/Plan Next Note Type Treatment Note Next Visit Plan review HEP segmental lumbar ROM ex knee to chest, open, book, pelvic tilt , cat camel, child pose Plan of Care Dates Plan of Care Start Date 10/01/20 Plan of Care End Date 11/30/20 Electronically Signed by: Nas Valdez, PT 10/01/20 [id number] Please Sign and Return: I have reviewed this Plan of Care and certify that the skilled therapy services above are required to meet the patient?s needs. Physician Signature Date Printed Name and Credentials Clinical Instructor Signature Printed Name and Credentials
--- NOTE | 2020-10-20 16:19 | PT.OTN ---
Current Diagnoses Low back pain (10/20/20) Physical Therapy Treatment Note PT-OP-A Visit Information Start: 10/01/20 15:15 Freq: Status: Active Protocol: Document 10/20/20 13:56 (Rec: 10/20/20 16:18 [id number]) Out-Patient Physical Therapy Visit Information Visit Information Visit Type Treatment Note Visit Start Time 15:20 Visit Stop Time 16:05 Total Visit Minutes 45 Visit Number 2/30 Number of PERSONNEL CLERK Visits 0 PT-OP-B Current Condition Start: 10/01/20 15:15 Freq: Status: Active Protocol: Document 10/01/20 16:06 HH (Rec: 10/01/20 16:42 [email or web address]) Current Condition History of Current Condition Onset Date since last year Current Complaints chronic LBP, stiffness in the AM History of Current Condition Isela is a 65 yo female here for her chronic LBP with stiffness in the morning. She stated she has significant stiffness in the morning who has to bend over to walk a little before she can fully straighten herself. She needs to do stretching often and change of position to opens her back up. She notices her stiffness/ pain is slowly getting worse since the COVID pandemic started because she is more sedentary. Denies tingling/ numbness sensation but does have occasional numbness on both feet. (more often in sitting position). 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 Prior Treatments and Tests no imaging done Personal Factors Other Personal Factors That May Effect depression Therapy/Recovery PT-OP-C Subjective Start: 10/01/20 15:15 Freq: Status: Active Protocol: Document 10/20/20 13:56 HH (Rec: 10/20/20 16:18 [id number]) OP-PT Subjective Patient Comments Patient Comments My back is doing better and walking more during my road trip has helped a lot too. I still get the morning stiffness but i ve been doing my stretches. Patient Reported Progress Improving PT-OP-D Balance Start: 10/01/20 15:15 Freq: Status: Active Protocol: Document 10/01/20 16:06 HH (Rec: 10/01/20 16:42 [email or web address]) Balance Tests Single Limb Standing Single Limb- Right 8,12,15 Single Limb- Left 10,12,13 PT-OP-F Manual Assessment Start: 10/01/20 15:15 Freq: Status: Active Protocol: Document 10/01/20 16:06 HH (Rec: 10/01/20 16:42 [email or web address]) Manual Assessments Soft Tissue Assessment Soft Tissue Mobility Assessment significant toncity noted at paraspinals at L5 region R>L moderate toncity noted at gluteal muscle belly R>L PT-OP-H Neuro Start: 10/01/20 15:15 Freq: Status: Active Protocol: Document 10/01/20 16:06 HH (Rec: 10/01/20 16:42 [email or web address]) Sensation Evaluation Gross Sensation Gross Sensation WNL Comments Summary Comments pt c/o numbness on both feet more often in seated position Deep Tendon Reflex & Clonus Assessment Deep Tendon Reflex Bilateral Achilles Deep Tendon Reflex 2+ Normal Bilateral Patellar Deep Tendon Reflex 2+ Normal PT-OP-J Posture/Palpation/Skin Start: 10/01/20 15:15 Freq: Status: Active Protocol: Document 10/01/20 16:06 HH (Rec: 10/01/20 16:42 [email or web address]) Posture Evaluation Position Standing Head/C-Spine Posture Forward Head L-Spine Posture Increased Lordosis Shoulder Posture (L) Rounded,(R) Rounded PT-OP-K Range of Motion Start: 10/01/20 15:15 Freq: Status: Active Protocol: Document 10/01/20 16:06 HH (Rec: 10/01/20 16:42 [email or web address]) Lumbar Spine Range of Motion Lumbar Spine Active Degrees Comments toe touch test= 6 from the floor, flexion mostly from thoracic spine and hip. Lumbar flexion = neutral only SB to R= 23 inches from floor. SB to L= 22 inches from floor extension= shoulders meet heels (pressure pain noted) Hip Goniometric Range of Motion Hip Right Active Straight Leg Raise 60 Comments HS tightness noted Left Active Straight Leg Raise 58 Comments HS tightness noted PT-OP-L Special Tests Start: 10/01/20 15:15 Freq: Status: Active Protocol: Document 10/01/20 16:06 HH (Rec: 10/01/20 16:42 [email or web address]) Special Tests Lumbar Spine Special Tests Straight Leg Raise Test Results -ve Vertical Spine Loading Test Results -ve Slump Test Results -ve PT-OP-M Strength Start: 10/01/20 15:15 Freq: Status: Active Protocol: Document 10/01/20 16:06 (Rec: 10/01/20 16:42 [email or web address]) Hip Strength Hip Manual Muscle Testing Right Flexion (L2) 4 Good Extension (S1) 4 Good Abduction 4 Good Adduction 4 Good Left Flexion (L2) 4 Good Extension (S1) 4 Good Abduction 4 Good Adduction 4 Good Knee Strength Knee Manual Muscle Testing Right Flexion (S2) 4+ Good+ Extension (L3) 4+ Good+ Left Flexion (S2) 4+ Good+ Extension (L3) 4+ Good+ Ankle/Foot Strength Ankle and Foot Manual Muscle Testing Right Dorsiflexion (L4) 5 Normal Plantarflexion (S1) 5 Normal Left Dorsiflexion (L4) 5 Normal Plantarflexion (S1) 5 Normal PT-OP-Q Treatments Start: 10/01/20 15:15 Freq: Status: Active Protocol: Document 10/20/20 13:56 (Rec: 10/20/20 16:18 [id number]) Therapeutic Exercises Supine Exercises pelvic tilt Reps/Minutes 10 x 2 knee to chest Side bilateral Comments for hEP Prone Exercises child pose Reps/Minutes 8 x 2 cat camel Reps/Minutes 10 x2 Comments cues on segmental lumbar flexion Sidelying Exercises open book Sidelying Exercise Name for review Side bilateral Comments cues needed hip rotation Manual Therapy Treatment Soft Tissue Mobilization 1 Body Location B QL Mobilization Type Sustained Pressure,Trigger Point Release Intensity/Depth Moderate Body Position Sidelying Comments tonicity on L noted PT-OP-T Assessment and Plan Start: 10/01/20 15:15 Freq: Status: Active Protocol: Document 10/20/20 13:56 (Rec: 10/20/20 16:18 [id number]) Physical Therapy Assessment Goals HEP Impairment pt does not ahve a HEP Short Term Goal (STG) pt will be compliant to complete daily HEP safely and independently to manage her back stiffness symptoms. STG Duration 4 weeks activity tolerance Impairment pt has been sedentary with increased back stiffness Short Term Goal (STG) pt will show improved activity tolerance to be able to walk 2 miles a day without increase in back pain STG Duration 4 weeks Mcfp Goal (LTG) pt will show improved activity tolerance to be able to walk 4 miles a day without increase in back pain LTG Duration 8 weeks mobility Impairment pt has very poor segmental lumbar flexion Short Term Goal (STG) pt will show improved segmental lumbar flexion to reach ankles during toe touch test STG Duration 4 weeks Mcfp Goal (LTG) pt will show improved segmental lumbar flexion to reach her toes during toe touch test. This allows pt to bend over for daily activites without increase in LBP Assessment Summary Assessment pt was gone for 2 weeks for her road trip. She is doing well with her stretches and walking. Added pelvic tilt, child pose and cat camel to focus on segmental lumbar flexion. Pt chanell session well. Physical Therapy Plan Frequency and Duration Frequency of Treatment 1x/Week Duration of Treatment 8 weeks Plan of Care Start Date 10/01/20 Plan of Care End Date 11/30/20 Therapeutic Interventions Therapeutic Interventions Aquatic Therapy,Balance Training,Gait Training,Home Exercise Program,Manual Therapy,Neuromuscular Re- education,Patient/Caregiver Education,Self-Care/Home Management,Soft Tissue Mobilization,Taping, Therapeutic Activities, Therapeutic Exercises Modalities Cold Pack/Ice Massage,Electric Stimulation,Hot Packs, Infrared Therapy,Traction- Mechanical,Ultrasound Next Visit Focus/Plan Next Note Type Treatment Note Next Visit Plan review HEP segmental lumbar ROM ex knee to chest, open, book, pelvic tilt , cat camel, child pose
--- NOTE | 2020-10-27 16:04 | PT.OTN ---
Current Diagnoses Low back pain (10/27/20) Physical Therapy Treatment Note PT-OP-A Visit Information Start: 10/01/20 15:15 Freq: Status: Active Protocol: Document 10/27/20 15:16 (Rec: 10/27/20 16:04 [id number]) Out-Patient Physical Therapy Visit Information Visit Information Visit Type Treatment Note Visit Start Time 15:15 Visit Stop Time 16:08 Total Visit Minutes 53 Visit Number 3 Number of OPTICAL LENS MANUFACTURING TECH Visits 0 PT-OP-B Current Condition Start: 10/01/20 15:15 Freq: Status: Active Protocol: Document 10/01/20 16:06 HH (Rec: 10/01/20 16:42 [email or web address]) Current Condition History of Current Condition Onset Date since last year Current Complaints chronic LBP, stiffness in the AM History of Current Condition Isela is a 65 yo female here for her chronic LBP with stiffness in the morning. She stated she has significant stiffness in the morning who has to bend over to walk a little before she can fully straighten herself. She needs to do stretching often and change of position to opens her back up. She notices her stiffness/ pain is slowly getting worse since the COVID pandemic started because she is more sedentary. Denies tingling/ numbness sensation but does have occasional numbness on both feet. (more often in sitting position). 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 Prior Treatments and Tests no imaging done Personal Factors Other Personal Factors That May Effect depression Therapy/Recovery PT-OP-C Subjective Start: 10/01/20 15:15 Freq: Status: Active Protocol: Document 10/27/20 15:16 HH (Rec: 10/27/20 16:04 [id number]) OP-PT Subjective Patient Comments Patient Comments the pelvic tilt exercise helps me a lot to break up my stiffness in the morning Patient Reported Progress Improving PT-OP-D Balance Start: 10/01/20 15:15 Freq: Status: Active Protocol: Document 10/01/20 16:06 HH (Rec: 10/01/20 16:42 [email or web address]) Balance Tests Single Limb Standing Single Limb- Right 8,12,15 Single Limb- Left 10,12,13 PT-OP-F Manual Assessment Start: 10/01/20 15:15 Freq: Status: Active Protocol: Document 10/01/20 16:06 HH (Rec: 10/01/20 16:42 [email or web address]) Manual Assessments Soft Tissue Assessment Soft Tissue Mobility Assessment significant toncity noted at paraspinals at L5 region R>L moderate toncity noted at gluteal muscle belly R>L PT-OP-H Neuro Start: 10/01/20 15:15 Freq: Status: Active Protocol: Document 10/01/20 16:06 HH (Rec: 10/01/20 16:42 [email or web address]) Sensation Evaluation Gross Sensation Gross Sensation WNL Comments Summary Comments pt c/o numbness on both feet more often in seated position Deep Tendon Reflex & Clonus Assessment Deep Tendon Reflex Bilateral Achilles Deep Tendon Reflex 2+ Normal Bilateral Patellar Deep Tendon Reflex 2+ Normal PT-OP-J Posture/Palpation/Skin Start: 10/01/20 15:15 Freq: Status: Active Protocol: Document 10/01/20 16:06 HH (Rec: 10/01/20 16:42 [email or web address]) Posture Evaluation Position Standing Head/C-Spine Posture Forward Head L-Spine Posture Increased Lordosis Shoulder Posture (L) Rounded,(R) Rounded PT-OP-K Range of Motion Start: 10/01/20 15:15 Freq: Status: Active Protocol: Document 10/01/20 16:06 HH (Rec: 10/01/20 16:42 [email or web address]) Lumbar Spine Range of Motion Lumbar Spine Active Degrees Comments toe touch test= 6 from the floor, flexion mostly from thoracic spine and hip. Lumbar flexion = neutral only SB to R= 23 inches from floor. SB to L= 22 inches from floor extension= shoulders meet heels (pressure pain noted) Hip Goniometric Range of Motion Hip Right Active Straight Leg Raise 60 Comments HS tightness noted Left Active Straight Leg Raise 58 Comments HS tightness noted PT-OP-L Special Tests Start: 10/01/20 15:15 Freq: Status: Active Protocol: Document 10/01/20 16:06 HH (Rec: 10/01/20 16:42 [email or web address]) Special Tests Lumbar Spine Special Tests Straight Leg Raise Test Results -ve Vertical Spine Loading Test Results -ve Slump Test Results -ve PT-OP-M Strength Start: 10/01/20 15:15 Freq: Status: Active Protocol: Document 10/01/20 16:06 (Rec: 10/01/20 16:42 [email or web address]) Hip Strength Hip Manual Muscle Testing Right Flexion (L2) 4 Good Extension (S1) 4 Good Abduction 4 Good Adduction 4 Good Left Flexion (L2) 4 Good Extension (S1) 4 Good Abduction 4 Good Adduction 4 Good Knee Strength Knee Manual Muscle Testing Right Flexion (S2) 4+ Good+ Extension (L3) 4+ Good+ Left Flexion (S2) 4+ Good+ Extension (L3) 4+ Good+ Ankle/Foot Strength Ankle and Foot Manual Muscle Testing Right Dorsiflexion (L4) 5 Normal Plantarflexion (S1) 5 Normal Left Dorsiflexion (L4) 5 Normal Plantarflexion (S1) 5 Normal PT-OP-Q Treatments Start: 10/01/20 15:15 Freq: Status: Active Protocol: Document 10/27/20 15:16 HH (Rec: 10/27/20 16:04 [id number]) Therapeutic Exercises Supine Exercises snow jeny Equipment Used half foam roller Reps/Minutes 2 mins pelvic tilt Reps/Minutes 10 x 2 Prone Exercises child pose Reps/Minutes 8 x 2 cat camel Prone Exercise Name with head movement Reps/Minutes 10 x2 Comments cues on segmental lumbar flexion Sidelying Exercises open book Sidelying Exercise Name for review Side bilateral Comments cues needed hip rotation Sitting Exercises seated stretch Sitting Exercise Name lumbar flexion Side bilateral Manual Therapy Treatment Soft Tissue Mobilization 1 Body Location B QL Mobilization Type Sustained Pressure,Trigger Point Release Intensity/Depth Moderate Body Position Sidelying Comments tonicity on L noted PT-OP-R Modalities Start: 10/01/20 15:15 Freq: Status: Active Protocol: Document 10/27/20 15:16 (Rec: 10/27/20 16:04 [id number]) Hot Pack/Cold Pack Treatment Hot Pack Location lumbar Patient Position Supine Treatment Duration (minutes) 10 Patient Tolerance Good PT-OP-T Assessment and Plan Start: 10/01/20 15:15 Freq: Status: Active Protocol: Document 10/27/20 15:16 (Rec: 10/27/20 16:04 [id number]) Physical Therapy Assessment Goals HEP Impairment pt does not ahve a HEP Short Term Goal (STG) pt will be compliant to complete daily HEP safely and independently to manage her back stiffness symptoms. STG Duration 4 weeks activity tolerance Impairment pt has been sedentary with increased back stiffness Short Term Goal (STG) pt will show improved activity tolerance to be able to walk 2 miles a day without increase in back pain STG Duration 4 weeks [employer] Goal (LTG) pt will show improved activity tolerance to be able to walk 4 miles a day without increase in back pain LTG Duration 8 weeks mobility Impairment pt has very poor segmental lumbar flexion Short Term Goal (STG) pt will show improved segmental lumbar flexion to reach ankles during toe touch test STG Duration 4 weeks [employer] Goal (LTG) pt will show improved segmental lumbar flexion to reach her toes during toe touch test. This allows pt to bend over for daily activites without increase in LBP Assessment Summary Assessment pt reports good stiffness relief in the morning with HEP routine. Spent time cueing pt on segmental flexion and thoracic extension today. Recommended pt to acquire foam roller as well Physical Therapy Plan Frequency and Duration Frequency of Treatment 1x/Week Duration of Treatment 8 weeks Plan of Care Start Date 10/01/20 Plan of Care End Date 11/30/20 Therapeutic Interventions Therapeutic Interventions Aquatic Therapy,Balance Training,Gait Training,Home Exercise Program,Manual Therapy,Neuromuscular Re- education,Patient/Caregiver Education,Self-Care/Home Management,Soft Tissue Mobilization,Taping, Therapeutic Activities, Therapeutic Exercises Modalities Cold Pack/Ice Massage,Electric Stimulation,Hot Packs, Infrared Therapy,Traction- Mechanical,Ultrasound Discharge Physical Therapy Discharge Reasons No Longer Attending PT Discharge Comments pt has not been seen in PT in the past 10 months, she will be discharged from PT at this time Next Visit Focus/Plan Next Note Type Treatment Note Next Visit Plan review HEP segmental lumbar ROM ex knee to chest, open, book, pelvic tilt , cat camel, child pose
--- NOTE | 2020-11-05 16:09 | PT.OTN ---
Current Diagnoses Low back pain (11/05/20) Physical Therapy Treatment Note PT-OP-A Visit Information Start: 10/01/20 15:15 Freq: Status: Active Protocol: Document 11/05/20 14:38 HH (Rec: 11/05/20 16:09 [email or web address]) Out-Patient Physical Therapy Visit Information Visit Information Visit Type Treatment Note Visit Start Time 15:20 Visit Stop Time 16:00 Total Visit Minutes 40 Visit Number 4/30 Number of DIET THERAPIST Visits 0 PT-OP-B Current Condition Start: 10/01/20 15:15 Freq: Status: Active Protocol: Document 10/01/20 16:06 HH (Rec: 10/01/20 16:42 [email or web address]) Current Condition History of Current Condition Onset Date since last year Current Complaints chronic LBP, stiffness in the AM History of Current Condition Isela is a 65 yo female here for her chronic LBP with stiffness in the morning. She stated she has significant stiffness in the morning who has to bend over to walk a little before she can fully straighten herself. She needs to do stretching often and change of position to opens her back up. She notices her stiffness/ pain is slowly getting worse since the COVID pandemic started because she is more sedentary. Denies tingling/ numbness sensation but does have occasional numbness on both feet. (more often in sitting position). 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 Prior Treatments and Tests no imaging done Personal Factors Other Personal Factors That May Effect depression Therapy/Recovery PT-OP-C Subjective Start: 10/01/20 15:15 Freq: Status: Active Protocol: Document 11/05/20 14:38 HH (Rec: 11/05/20 16:09 [id number]) OP-PT Subjective Patient Comments Patient Comments Sitting in my car tends to bother my back PT-OP-D Balance Start: 10/01/20 15:15 Freq: Status: Active Protocol: Document 10/01/20 16:06 HH (Rec: 10/01/20 16:42 [email or web address]) Balance Tests Single Limb Standing Single Limb- Right 8,12,15 Single Limb- Left 10,12,13 PT-OP-F Manual Assessment Start: 10/01/20 15:15 Freq: Status: Active Protocol: Document 10/01/20 16:06 HH (Rec: 10/01/20 16:42 [email or web address]) Manual Assessments Soft Tissue Assessment Soft Tissue Mobility Assessment significant toncity noted at paraspinals at L5 region R>L moderate toncity noted at gluteal muscle belly R>L PT-OP-H Neuro Start: 10/01/20 15:15 Freq: Status: Active Protocol: Document 10/01/20 16:06 HH (Rec: 10/01/20 16:42 [email or web address]) Sensation Evaluation Gross Sensation Gross Sensation WNL Comments Summary Comments pt c/o numbness on both feet more often in seated position Deep Tendon Reflex & Clonus Assessment Deep Tendon Reflex Bilateral Achilles Deep Tendon Reflex 2+ Normal Bilateral Patellar Deep Tendon Reflex 2+ Normal PT-OP-J Posture/Palpation/Skin Start: 10/01/20 15:15 Freq: Status: Active Protocol: Document 10/01/20 16:06 HH (Rec: 10/01/20 16:42 [email or web address]) Posture Evaluation Position Standing Head/C-Spine Posture Forward Head L-Spine Posture Increased Lordosis Shoulder Posture (L) Rounded,(R) Rounded PT-OP-K Range of Motion Start: 10/01/20 15:15 Freq: Status: Active Protocol: Document 10/01/20 16:06 HH (Rec: 10/01/20 16:42 [email or web address]) Lumbar Spine Range of Motion Lumbar Spine Active Degrees Comments toe touch test= 6 from the floor, flexion mostly from thoracic spine and hip. Lumbar flexion = neutral only SB to R= 23 inches from floor. SB to L= 22 inches from floor extension= shoulders meet heels (pressure pain noted) Hip Goniometric Range of Motion Hip Right Active Straight Leg Raise 60 Comments HS tightness noted Left Active Straight Leg Raise 58 Comments HS tightness noted PT-OP-L Special Tests Start: 10/01/20 15:15 Freq: Status: Active Protocol: Document 10/01/20 16:06 HH (Rec: 10/01/20 16:42 [email or web address]) Special Tests Lumbar Spine Special Tests Straight Leg Raise Test Results -ve Vertical Spine Loading Test Results -ve Slump Test Results -ve PT-OP-M Strength Start: 10/01/20 15:15 Freq: Status: Active Protocol: Document 10/01/20 16:06 HH (Rec: 10/01/20 16:42 [email or web address]) Hip Strength Hip Manual Muscle Testing Right Flexion (L2) 4 Good Extension (S1) 4 Good Abduction 4 Good Adduction 4 Good Left Flexion (L2) 4 Good Extension (S1) 4 Good Abduction 4 Good Adduction 4 Good Knee Strength Knee Manual Muscle Testing Right Flexion (S2) 4+ Good+ Extension (L3) 4+ Good+ Left Flexion (S2) 4+ Good+ Extension (L3) 4+ Good+ Ankle/Foot Strength Ankle and Foot Manual Muscle Testing Right Dorsiflexion (L4) 5 Normal Plantarflexion (S1) 5 Normal Left Dorsiflexion (L4) 5 Normal Plantarflexion (S1) 5 Normal PT-OP-Q Treatments Start: 10/01/20 15:15 Freq: Status: Active Protocol: Document 11/05/20 14:38 (Rec: 11/05/20 16:09 [id number]) Therapeutic Exercises Supine Exercises bridging Side bilateral Reps/Minutes 10 x2 Comments with PPT. LTR Equipment Used red therapy ball Reps/Minutes 10 x2 snow jeny Equipment Used half foam roller Reps/Minutes 2 mins pelvic tilt Reps/Minutes 10 x 2 knee to chest Supine Exercise Name ab curl Equipment Used red therapy ball. Reps/Minutes 10 x2 Prone Exercises cat camel Prone Exercise Name with head movement Reps/Minutes 10 x2 Comments cues on segmental lumbar flexion Manual Therapy Treatment Soft Tissue Mobilization 1 Body Location B QL Mobilization Type Sustained Pressure,Trigger Point Release Intensity/Depth Moderate Body Position Sidelying Comments tonicity on L noted PT-OP-R Modalities Start: 10/01/20 15:15 Freq: Status: Active Protocol: Document 10/27/20 15:16 (Rec: 10/27/20 16:04 [id number]) Hot Pack/Cold Pack Treatment Hot Pack Location lumbar Patient Position Supine Treatment Duration (minutes) 10 Patient Tolerance Good PT-OP-T Assessment and Plan Start: 10/01/20 15:15 Freq: Status: Active Protocol: Document 11/05/20 14:38 (Rec: 11/05/20 16:09 [id number]) Physical Therapy Assessment Goals HEP Impairment pt does not ahve a HEP Short Term Goal (STG) pt will be compliant to complete daily HEP safely and independently to manage her back stiffness symptoms. STG Duration 4 weeks activity tolerance Impairment pt has been sedentary with increased back stiffness Short Term Goal (STG) pt will show improved activity tolerance to be able to walk 2 miles a day without increase in back pain STG Duration 4 weeks [facility] Goal (LTG) pt will show improved activity tolerance to be able to walk 4 miles a day without increase in back pain LTG Duration 8 weeks mobility Impairment pt has very poor segmental lumbar flexion Short Term Goal (STG) pt will show improved segmental lumbar flexion to reach ankles during toe touch test STG Duration 4 weeks [facility] Goal (LTG) pt will show improved segmental lumbar flexion to reach her toes during toe touch test. This allows pt to bend over for daily activites without increase in LBP Assessment Summary Assessment pt reports stretching routine helps her stiffness in the morning. Spent time educating her to have a walking and low impact ex routine for overall strengthening and stiffness management. pt shows good understanding. Physical Therapy Plan Frequency and Duration Frequency of Treatment 1x/Week Duration of Treatment 8 weeks Plan of Care Start Date 10/01/20 Plan of Care End Date 11/30/20 Therapeutic Interventions Therapeutic Interventions Aquatic Therapy,Balance Training,Gait Training,Home Exercise Program,Manual Therapy,Neuromuscular Re- education,Patient/Caregiver Education,Self-Care/Home Management,Soft Tissue Mobilization,Taping, Therapeutic Activities, Therapeutic Exercises Modalities Cold Pack/Ice Massage,Electric Stimulation,Hot Packs, Infrared Therapy,Traction- Mechanical,Ultrasound Next Visit Focus/Plan Next Note Type Treatment Note Next Visit Plan review HEP segmental lumbar ROM ex knee to chest, open, book, pelvic tilt , cat camel, child pose
--- NOTE | 2020-12-22 11:45 | PT.OPDS ---
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 Requested to be DC from PT
== END 2020-12-23 10:14 | disposition home or self-care (01) ==
LOC: PHYS 15:15
PROVIDERS: Family Provider Internal Medicine; PCP Internal Medicine; Referring Provider Internal Medicine; Visit Provider Internal Medicine
DX: M54.5 Low back pain (principal)
CPT/HCPCS: 97110; 97140; 97161

== ENCOUNTER → 2021-03-27 07:50 | Outpatient (CLI) | payer OTHER, SELFPAY ==
[2021-03-27 09:24] LABS: Add Manual Diff / Slide Review NO; Basophils Absolute Auto 100 /uL (0-100); Basophils Percent Auto 1.2 % (0-2); Eosinophils Absolute Auto 300 /uL (0-450); Eosinophils Percent Auto 6.2 % (2-4); Hematocrit 36.2 % (36-46); Hemoglobin 12.4 g/dL (12.0-16.0); Lymphocytes Absolute Auto 1300 /uL (1100-4500); Lymphocytes Percent Auto 23.6 % (25-40); Mean Corpuscular HGB Conc 34.1 % (30-36); Mean Corpuscular Hemoglobin 30.3 PG (26-34); Mean Corpuscular Volume 88.9 fL (80-100); Monocytes Absolute Auto 500 /uL (0-900); Monocytes Percent Auto 9.1 % (3-14); Neutrophils Absolute Auto 3200 /uL (1500-7000); Neutrophils Percent Auto 59.9 % (50-75); Platelet Count 228 X10^3/uL (150-400); Red Blood Cell Count 4.08 X10^6/uL (4.0-5.2); Red Cell Distribution Width 14.2 % (11.6-14.8); White Blood Cell Count 5.3 X10^3/uL (4.5-11.0)
[2021-03-27 10:00] LABS: Alanine Aminotransferase 20 IU/L (<35); Albumin 3.7 g/dL (3.5-5.0); Albumin Globulin Ratio 1.5 (1.0-2.8); Alkaline Phosphatase 56 U/L (38-126); Aspartate Aminotransferase 26 IU/L (14-36); BUN Creatinine Ratio 21.9 (6-22); Bilirubin Total 0.8 mg/dL (0.2-1.3); Blood Urea Nitrogen 16 mg/dL (7-17); Carbon Dioxide 33 mmol/L (22-32); Chloride 103 mmol/L (98-107); Cholesterol 205 mg/dL (140-199); Estimated Glomerular Filt Rate > 60.0 mL/min (>60); Globulin 2.4 g/dL (1.7-4.1); Glucose 93 mg/dL (80-110); HDL Cholesterol 80 mg/dL (40-60); HEMOLYSIS < 15 (0-50); LDL Cholesterol Calculated 113 mg/dL (<100); Potassium 4.3 mmol/L (3.4-5.1); Sodium 138 mmol/L (137-145); Total Protein 6.1 g/dL (6.3-8.2); Triglycerides 60 mg/dL (35-150)
[2021-03-27 10:28] LABS: TSH w/ Reflex to FT4 2.11 uIU/mL (0.47-4.68)
== END ==
PROVIDERS: Family Provider Internal Medicine; PCP Family Medicine; Referring Provider Family Medicine; Visit Provider Family Medicine
DX: K57.90 Diverticulosis of intestine, part unspecified, without perforation or abscess without bleeding (principal); K58.9 Irritable bowel syndrome, unspecified
CPT/HCPCS: 36415; 80053; 80061; 84443; 85025

== ENCOUNTER → 2021-04-20 09:42 | Outpatient (CLI) | payer OTHER, SELFPAY ==
[2021-04-20 10:06] LABS: Appearance Urine UA CLEAR; Bilirubin Urine UA NEGATIVE (NEGATIVE); Color Urine UA YELLOW; Glucose Urine UA NEGATIVE (Negative); Ketones Urine UA NEGATIVE (NEGATIVE); Leukocyte Esterase Urine UA 1+ (NEGATIVE); Nitrite Urine UA NEGATIVE (Negative); Occult Blood Urine UA 1+ (Negative); Protein Urine UA NEGATIVE (Negative); Specific Gravity Urine UA <=1.005 (1.000-1.035); Urobilinogen Urine UA 0.2 E.U./dL (0.2)
[2021-04-20 10:31] LABS: pH Urine UA 6.5 (4.5-8.0)
[2021-04-20 10:32] LABS: Bacteria Urine Occasional (0-1); Culture Indicated Urine Specimen Cultured; RBC Urine 1-5/HPF (0-5/HPF); Squamous Epithelial Cell Urine 0-1 /HPF (0-5/HPF); WBC Urine 5-10/HPF (0-5/HPF)
== END ==
PROVIDERS: Family Provider Internal Medicine; PCP Family Medicine; Referring Provider Family Medicine; Visit Provider Family Medicine
DX: R30.9 Painful micturition, unspecified (principal); R35.0 Frequency of micturition
CPT/HCPCS: 81001; 87086

== ENCOUNTER → 2021-10-06 10:18 | Outpatient (CLI) | payer MEDICARE, OTHER, SELFPAY ==
[2021-10-06 11:08] LABS: Appearance Urine UA CLEAR; Bilirubin Urine UA NEGATIVE (NEGATIVE); Color Urine UA YELLOW; Glucose Urine UA NEGATIVE (Negative); Ketones Urine UA NEGATIVE (NEGATIVE); Leukocyte Esterase Urine UA 1+ (NEGATIVE); Nitrite Urine UA NEGATIVE (Negative); Occult Blood Urine UA 1+ (Negative); Protein Urine UA NEGATIVE (Negative); Specific Gravity Urine UA <=1.005 (1.000-1.035); Urobilinogen Urine UA 0.2 E.U./dL (0.2)
[2021-10-06 11:53] LABS: Bacteria Urine Few (2-10); Culture Indicated Urine Specimen Cultured; RBC Urine 1-5/HPF (0-5/HPF); Squamous Epithelial Cell Urine 0-1 /HPF (0-5/HPF); WBC Urine 10-30/HPF (0-5/HPF)
== END ==
PROVIDERS: Family Provider Internal Medicine; PCP Family Medicine; Referring Provider Family Medicine; Visit Provider Family Medicine
DX: R30.9 Painful micturition, unspecified (principal); R35.0 Frequency of micturition
CPT/HCPCS: 81001; 87077; 87086; 87186

== ENCOUNTER → 2021-10-14 16:22 | Outpatient (CLI) | payer MEDICARE, OTHER, SELFPAY ==
--- NOTE | 2021-10-14 16:38 | DI.RAD.S_ITS ---
PROCEDURE: XR LUMBAR SPINE MIN 4V INDICATIONS: Lower back pain with subjective lower extremity weakness TECHNIQUE: 5 views of the lumbar spine acquired, including flexion and extension views. COMPARISON: None. FINDINGS: Bones: 5 nonrib-bearing vertebrae are present. Mild levo curvature centered at the L3 level. Multilevel disc degeneration, most notably and moderate to severe at the L4-L5 level. Moderate L4-L5 and L5-S1 facet joint arthropathy. No vertebral body compression fractures. No suspicious bony lesions. Soft tissues: Overlying bowel gas pattern is normal. No suspicious soft tissue calcifications. Cholecystectomy clips. IMPRESSION: Multilevel spondylosis, most notably at the L4-L5 level. Dictated by: Eric NELSON Interpreted: Joseph Conway MD on 10/14/2021 at 17:02 Transcribed by: RAMON on 10/14/2021 at 17:03 Approved by: Joseph Conway M.D. on 10/15/2021 at 10:16
== END ==
PROVIDERS: Family Provider Internal Medicine; PCP Family Medicine; Referring Provider Family Medicine; Visit Provider Family Medicine
DX: M54.50 Low back pain, unspecified (principal); M47.816 Spondylosis without myelopathy or radiculopathy, lumbar region
CPT/HCPCS: 72110

== ENCOUNTER 2022-02-22 09:00 | Outpatient (RCR) | payer MEDICARE, OTHER, SELFPAY ==
--- NOTE | 2021-12-24 21:53 | PT.OIE ---
Current Diagnoses Low back pain, unspecified (12/24/21) Past Medical History (Last Updated 10/14/21 @ 16:32 by Jj Vora DO) Anxiety and depression Autoimmune disorder Cyanocobalamin deficiency Diverticulosis Endometriosis GERD (gastroesophageal reflux disease) Left shoulder pain Lichen sclerosus Lower back pain UTI (urinary tract infection) Past Surgical History (Last Reviewed 10/14/21 @ 16:30 by Jj Vora DO) S/P total hysterectomy and BSO (bilateral salpingo-oophorectomy) (~1994) Visit Care Team Role Provider Type Jj Vora DO Attending Provider Physician Family Provider Primary Care Provider Referring Provider Specialty: [facility] Practice Address: [address] [place] [address], [facility] Email: [email or web address] Physical Therapy Initial Evaluation PT-OP-A Visit Information Start: 12/20/21 15:29 Freq: Status: Active Protocol: Document 12/24/21 11:15 AMB (Rec: 12/24/21 11:26 AMB [id number]) Out-Patient Physical Therapy Visit Information Visit Information Visit Type Initial Evaluation Visit Start Time 11:15 Visit Stop Time 12:00 Total Visit Minutes 45 Visit Number 1 PT-OP-B Current Condition Start: 12/20/21 15:29 Freq: Status: Active Protocol: Document 12/24/21 11:15 AMB (Rec: 12/24/21 11:26 AMB [id number]) Current Condition History of Current Condition Onset Date year ago Current Complaints Back/ LE stiffness/weakness History of Current Condition Isela went to her doctor as she has been noticing some stiffness in her back and legs and was worried about muscular dystrophy since her mom and sister had late onset (in their 40s MD). Her physician was not especially concerned about that, but was more thinking the stiffness and weakness in her legs was coming from her back. She does have a history of back pain and LE stiffness and has had prior PT for her back pain and continues on with those exercises about 20 min/day. Does do morning stretching routine, as well as t band and weight exercises. Did fall off bike but otherwise denies falls. Prior to previous physical therapy stiffness was worst in the morning, now does HEP in the morning and that helps, but notes that if she is seated for 15 minutes legs and back stiffness up, and spongey feet sensation seems to be coorelated to this . Fairly bilateral. Does have an old IT band injury. Prior Treatments and Tests X-ray did show L3 levoscoliosis, moderate to severe disc degeneration worst at L4-L5. Treatment Goals Patient/Caregiver Goals Exercises for back/leg stiffness with sitting. Prior Functional Status Baseline Function- ADL's Independent Baseline Function- Mobility Independent Current Functional Impairments (Reported) Functional Limitations- ADL's Stiffness in the morning or with sitting, extended car rides, etc. PT-OP-C Subjective Start: 12/20/21 15:29 Freq: Status: Active Protocol: Document 12/24/21 11:15 AMB (Rec: 12/24/21 15:29 AMB [id number]) OP-PT Subjective Patient Comments Patient Comments 3/10 back and right hip pain. 6/10 foot pain (plantar fascia) Patient Questionnaires Oswestry Low Back Index Oswestry Score 22 Oswestry Impairment 20 to 39% Impaired (Score 20- 39) PT-OP-K Range of Motion Start: 12/20/21 15:29 Freq: Status: Active Protocol: Document 12/24/21 11:38 AMB (Rec: 12/24/21 12:02 AMB [id number]) Lumbar Spine Range of Motion Lumbar Spine Active Degrees Flexion 50 Extension 20 Lateral Flexion Left 20 Lateral Flexion Right 20 PT-OP-M Strength Start: 12/20/21 15:29 Freq: Status: Active Protocol: Document 12/24/21 11:15 AMB (Rec: 12/25/21 21:45 AMB [id number]) Hip Strength Hip Manual Muscle Testing Right Flexion (L2) 4 Good Extension (S1) 4+ Good+ Abduction 4+ Good+ Left Flexion (L2) 4 Good Extension (S1) 4+ Good+ Abduction 4+ Good+ Knee Strength Knee Manual Muscle Testing Right Flexion (S2) 5 Normal Extension (L3) 5 Normal Left Flexion (S2) 5 Normal Extension (L3) 5 Normal PT-OP-Q Treatments Start: 12/20/21 15:29 Freq: Status: Active Protocol: Document 12/24/21 11:15 AMB (Rec: 12/24/21 12:43 AMB [id number]) Therapeutic Exercises Supine Exercises IT band stretch Side bilateral Reps/Minutes 30x2 Standing Exercises calf stretch Reps/Minutes 30x2 PT-OP-T Assessment and Plan Start: 12/20/21 15:29 Freq: Status: Active Protocol: Document 12/24/21 11:15 AMB (Rec: 12/25/21 22:06 AMB [id number]) Physical Therapy Assessment Rehab Potential Rehabilitation Potential Good Evaluation Complexity Number of Personal Factors/Comorbidities 0 Number of Body Systems Impaired 4 or More Clinical Presentation at Evaluation Stable Impairments Impairments Activity Tolerance,Functional Activities,Pain,ROM Goals Two Short Term Goal (STG) Isela will move from sit to stand without pain. 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 LTG Duration 8 weeks One Impairment HEP Short Term Goal (STG) Isela will be independent with a HEP for core and LE stabilization and stretching. STG Duration 4 weeks Assessment Summary Assessment Isela attends physical therapy with known history of lumbar disc degeneration and scoliosis, and is most concerned regarding her LE and lumbar stiffness, especially after extended sitting. She presented with poor coor stability, and tightness in bilateral hip adduction with tenderness over IT band and bilateral calf tightness. She has had previous physical therapy which she found helpful for her back stiffness in the morning, but will benefit from a round of PT for her LE stiffness that worsens if she is sendentary for any length of time. Physical Therapy Plan Frequency and Duration Frequency of Treatment 2x/Week Duration of Treatment 8 weeks Plan of Care Start Date 12/24/21 Plan of Care End Date 02/18/22 Therapeutic Interventions Therapeutic Interventions Balance Training,Gait Training ,Home Exercise Program,Manual Therapy,Neuromuscular Re- education,Self-Care/Home Management,Soft Tissue Mobilization,Therapeutic Activities,Therapeutic Exercises Modalities Cold Pack/Ice Massage,Electric Stimulation,Hot Packs, Ultrasound Next Visit Focus/Plan Next Note Type Treatment Note Next Visit Plan Review IT band and calf stretches, begin core stabilization HEP. Consider balance assessment as PT progresses.
--- NOTE | 2021-12-24 21:54 | PT.OPPOC ---
Physical, Occupational & Speech Therapy At [facility] Current Diagnoses Low back pain, unspecified (12/24/21) Visit Care Team Role Provider Type Jj Vora DO Attending Provider Physician Family Provider Primary Care Provider Referring Provider Specialty: Family Practice Address: [address] [place] [address], [facility] Email: [email or web address] Of Care PT-OP-T Assessment and Plan Start: 12/20/21 15:29 Freq: Status: Active Protocol: Document 12/24/21 11:15 AMB (Rec: 12/25/21 22:06 AMB [id number]) Physical Therapy Assessment Rehab Potential Rehabilitation Potential Good Evaluation Complexity Number of Personal Factors/Comorbidities 0 Number of Body Systems Impaired 4 or More Clinical Presentation at Evaluation Stable Impairments Impairments Activity Tolerance,Functional Activities,Pain,ROM Goals Two Short Term Goal (STG) Isela will move from sit to stand without pain. STG Duration 4 weeks Alf Goal (LTG) Isela will perform car transfers after a [address] without increased pain or stiffness. LTG Duration 8 weeks One Impairment HEP Short Term Goal (STG) Isela will be independent with a HEP for core and LE stabilization and stretching. STG Duration 4 weeks Assessment Summary Assessment Isela attends physical therapy with known history of lumbar disc degeneration and scoliosis, and is most concerned regarding her LE and lumbar stiffness, especially after extended sitting. She presented with poor coor stability, and tightness in bilateral hip adduction with tenderness over IT band and bilateral calf tightness. She has had previous physical therapy which she found helpful for her back stiffness in the morning, but will benefit from a round of PT for her LE stiffness that worsens if she is sendentary for any length of time. Physical Therapy Plan Frequency and Duration Frequency of Treatment 2x/Week Duration of Treatment 8 weeks Plan of Care Start Date 12/24/21 Plan of Care End Date 02/18/22 Therapeutic Interventions Therapeutic Interventions Balance Training,Gait Training ,Home Exercise Program,Manual Therapy,Neuromuscular Re- education,Self-Care/Home Management,Soft Tissue Mobilization,Therapeutic Activities,Therapeutic Exercises Modalities Cold Pack/Ice Massage,Electric Stimulation,Hot Packs, Ultrasound Next Visit Focus/Plan Next Note Type Treatment Note Next Visit Plan Review IT band and calf stretches, begin core stabilization HEP. Consider balance assessment as PT progresses. Plan of Care Dates Plan of Care Start Date 12/24/21 Plan of Care End Date 02/18/22 Electronically Signed by: Salena Leal, PT 12/27/21 [id number] If you are in agreement with this Plan of Care, please return a signed and dated copy. I have reviewed this Plan of Care and certify that the skilled therapy services above are required to meet the patient?s needs. Physician Signature Date Printed Name and Credentials Clinical Instructor Signature Printed Name and Credentials
--- NOTE | 2021-12-28 15:00 | PT.OTN ---
Current Diagnoses Low back pain, unspecified (12/28/21) Physical Therapy Treatment Note PT-OP-A Visit Information Start: 12/20/21 15:29 Freq: Status: Active Protocol: Document 12/28/21 13:54 NBM (Rec: 12/28/21 18:52 NBM [id number]) Out-Patient Physical Therapy Visit Information Visit Information Visit Type Treatment Note Visit Start Time 13:45 Visit Stop Time 14:30 Total Visit Minutes 45 Visit Number 2 Number of ASP NET DEVELOPER Visits 1 PT-OP-B Current Condition Start: 12/20/21 15:29 Freq: Status: Active Protocol: Document 12/24/21 11:15 AMB (Rec: 12/24/21 11:26 AMB [id number]) Current Condition History of Current Condition Onset Date year ago Current Complaints Back/ LE stiffness/weakness History of Current Condition Isela went to her doctor as she has been noticing some stiffness in her back and legs and was worried about muscular dystrophy since her mom and sister had late onset (in their 40s MD). Her physician was not especially concerned about that, but was more thinking the stiffness and weakness in her legs was coming from her back. She does have a history of back pain and LE stiffness and has had prior PT for her back pain and continues on with those exercises about 20 min/day. Does do morning stretching routine, as well as t band and weight exercises. Did fall off bike but otherwise denies falls. Prior to previous physical therapy stiffness was worst in the morning, now does HEP in the morning and that helps, but notes that if she is seated for 15 minutes legs and back stiffness up, and spongey feet sensation seems to be coorelated to this . Fairly bilateral. Does have an old IT band injury. Prior Treatments and Tests X-ray did show L3 levoscoliosis, moderate to severe disc degeneration worst at L4-L5. Treatment Goals Patient/Caregiver Goals Exercises for back/leg stiffness with sitting. Prior Functional Status Baseline Function- ADL's Independent Baseline Function- Mobility Independent Current Functional Impairments (Reported) Functional Limitations- ADL's Stiffness in the morning or with sitting, extended car rides, etc. PT-OP-C Subjective Start: 12/20/21 15:29 Freq: Status: Active Protocol: Document 12/28/21 13:54 NBM (Rec: 12/28/21 14:36 NBM [id number]) OP-PT Subjective Patient Comments Patient Comments Pt reports her back and hip pain are unchanged. She is trying the stretches she was given but can only do one of them for twenty seconds before it is too painful. PT-OP-K Range of Motion Start: 12/20/21 15:29 Freq: Status: Active Protocol: Document 12/24/21 11:38 AMB (Rec: 12/24/21 12:02 AMB [id number]) Lumbar Spine Range of Motion Lumbar Spine Active Degrees Flexion 50 Extension 20 Lateral Flexion Left 20 Lateral Flexion Right 20 PT-OP-M Strength Start: 12/20/21 15:29 Freq: Status: Active Protocol: Document 12/24/21 11:15 AMB (Rec: 12/25/21 21:45 AMB [id number]) Hip Strength Hip Manual Muscle Testing Right Flexion (L2) 4 Good Extension (S1) 4+ Good+ Abduction 4+ Good+ Left Flexion (L2) 4 Good Extension (S1) 4+ Good+ Abduction 4+ Good+ Knee Strength Knee Manual Muscle Testing Right Flexion (S2) 5 Normal Extension (L3) 5 Normal Left Flexion (S2) 5 Normal Extension (L3) 5 Normal PT-OP-Q Treatments Start: 12/20/21 15:29 Freq: Status: Active Protocol: Document 12/28/21 13:54 NBM (Rec: 12/28/21 14:36 NBM [id number]) Cardio Equipment Recumbent Elliptical (Biodex) Duration (Minutes) 6 Resistance 6 Seat Position 7 (yellow) Therapeutic Exercises Supine Exercises TrA Supine Exercise Name 1. w/PPT 2. BKFO Side bilateral Reps/Minutes x10 Comments self-monitoring medial to ant. iliac sp. cues for breathing, pacing, TrA HS stretch Supine Exercise Name added to HEP Side bilateral Equipment Used w/ strap Reps/Minutes 30x2 IT band stretch Supine Exercise Name HEP review Side bilateral Equipment Used w/ strap Reps/Minutes 30x2 Sidelying Exercises Open Book Stretch Sidelying Exercise Name added to HEP Side bilateral Reps/Minutes 5 x 3-5SH ea Standing Exercises PPT Standing Exercise Name at wall - added to HEP Reps/Minutes 8 x 5SH Comments improved self-awareness calf stretch Standing Exercise Name HEP review Side bilateral Reps/Minutes 30x2 Comments cued to step back from wall for deeper stretch instead of fwd, hip rotation Self-Care/Home Management Treatment Education Patient Education Body Mechanics,Home Exercise Program,Posture Other Education Explained TrA role in core and interplay w/ diaphragm and pelvic floor, and relationship w/ breathholding. Taught pt how to self-monitor TrA activation medial to ant. iliac sp. Added to HEP: PPT at wall, HS and ITB stretch w/ strap, Open Book stretch - HO given. PT-OP-T Assessment and Plan Start: 12/20/21 15:29 Freq: Status: Active Protocol: Document 12/28/21 13:54 NB (Rec: 12/28/21 19:10 [facility] [id number]) Physical Therapy Assessment Goals Two Short Term Goal (STG) Isela will move from sit to stand without pain. STG Duration 4 weeks Money Laundering Investigator Goal (LTG) Isela will perform car transfers after a [address] without increased pain or stiffness. LTG Duration 8 weeks One Impairment HEP Short Term Goal (STG) Isela will be independent with a HEP for core and LE stabilization and stretching. STG Duration 4 weeks Assessment Summary Assessment Treatment focus on HEP review of IT band and calf stretches and initiating core stabilization education and HEP. Pt's self-awareness of posterior pelvic tilt improves with repetitions at the wall, and TrA recruitment improves w/ education and self- monitoring medial to ant. iliac sp. in supine. Pt requires cues for slower pacing, transitions, and to avoid breathholding for supine exercises w/ Transverse abdominus focus but pt's self- awareness improves by end of session. Pt noted IT band stretch was the HEP stretch she had been unable to tolerate more than 20 sec at home but this visit she performs for 60s each leg without increase in baseline symptoms and w/ cues for knee bend and slower gentle position changes. Pt requires initial cues w/ calf stretch for squaring hips and to step back from wall for deeper stretch instead of forward. HEP HO given: PPT at wall, HS and ITB stretch w/ strap, Open Book stretch. Physical Therapy Plan Next Visit Focus/Plan Next Note Type Treatment Note Next Visit Plan Review HEP: PPT at wall/supine , HS and ITB stretch w/ strap, Open Book stretch; progress core stabilization HEP ( consider adding BKFO). Consider balance assessment as PT progresses.
--- NOTE | 2021-12-29 23:25 | PT.OTN ---
Current Diagnoses Low back pain, unspecified (12/28/21) Physical Therapy Treatment Note PT-OP-A Visit Information Start: 12/20/21 15:29 Freq: Status: Active Protocol: Document 12/28/21 13:54 NBM (Rec: 12/28/21 18:52 NBM [id number]) Out-Patient Physical Therapy Visit Information Visit Information Visit Type Treatment Note Visit Start Time 13:45 Visit Stop Time 14:30 Total Visit Minutes 45 Visit Number 2 Number of AGRICULTURAL PILOT Visits 1 PT-OP-B Current Condition Start: 12/20/21 15:29 Freq: Status: Active Protocol: Document 12/24/21 11:15 AMB (Rec: 12/24/21 11:26 AMB [id number]) Current Condition History of Current Condition Onset Date year ago Current Complaints Back/ LE stiffness/weakness History of Current Condition Isela went to her doctor as she has been noticing some stiffness in her back and legs and was worried about muscular dystrophy since her mom and sister had late onset (in their 40s MD). Her physician was not especially concerned about that, but was more thinking the stiffness and weakness in her legs was coming from her back. She does have a history of back pain and LE stiffness and has had prior PT for her back pain and continues on with those exercises about 20 min/day. Does do morning stretching routine, as well as t band and weight exercises. Did fall off bike but otherwise denies falls. Prior to previous physical therapy stiffness was worst in the morning, now does HEP in the morning and that helps, but notes that if she is seated for 15 minutes legs and back stiffness up, and spongey feet sensation seems to be coorelated to this . Fairly bilateral. Does have an old IT band injury. Prior Treatments and Tests X-ray did show L3 levoscoliosis, moderate to severe disc degeneration worst at L4-L5. Treatment Goals Patient/Caregiver Goals Exercises for back/leg stiffness with sitting. Prior Functional Status Baseline Function- ADL's Independent Baseline Function- Mobility Independent Current Functional Impairments (Reported) Functional Limitations- ADL's Stiffness in the morning or with sitting, extended car rides, etc. PT-OP-C Subjective Start: 12/20/21 15:29 Freq: Status: Active Protocol: Document 12/28/21 13:54 NBM (Rec: 12/28/21 14:36 NBM [id number]) OP-PT Subjective Patient Comments Patient Comments Pt reports her back and hip pain are unchanged. She is trying the stretches she was given but can only do one of them for twenty seconds before it is too painful. PT-OP-K Range of Motion Start: 12/20/21 15:29 Freq: Status: Active Protocol: Document 12/24/21 11:38 AMB (Rec: 12/24/21 12:02 AMB [id number]) Lumbar Spine Range of Motion Lumbar Spine Active Degrees Flexion 50 Extension 20 Lateral Flexion Left 20 Lateral Flexion Right 20 PT-OP-M Strength Start: 12/20/21 15:29 Freq: Status: Active Protocol: Document 12/24/21 11:15 AMB (Rec: 12/25/21 21:45 AMB [id number]) Hip Strength Hip Manual Muscle Testing Right Flexion (L2) 4 Good Extension (S1) 4+ Good+ Abduction 4+ Good+ Left Flexion (L2) 4 Good Extension (S1) 4+ Good+ Abduction 4+ Good+ Knee Strength Knee Manual Muscle Testing Right Flexion (S2) 5 Normal Extension (L3) 5 Normal Left Flexion (S2) 5 Normal Extension (L3) 5 Normal PT-OP-Q Treatments Start: 12/20/21 15:29 Freq: Status: Active Protocol: Document 12/28/21 13:54 NBM (Rec: 12/28/21 14:36 NBM [id number]) Cardio Equipment Recumbent Elliptical (Biodex) Duration (Minutes) 6 Resistance 6 Seat Position 7 (yellow) Therapeutic Exercises Supine Exercises TrA Supine Exercise Name 1. w/PPT 2. BKFO Side bilateral Reps/Minutes x10 Comments self-monitoring medial to ant. iliac sp. cues for breathing, pacing, TrA HS stretch Supine Exercise Name added to HEP Side bilateral Equipment Used w/ strap Reps/Minutes 30x2 IT band stretch Supine Exercise Name HEP review Side bilateral Equipment Used w/ strap Reps/Minutes 30x2 Sidelying Exercises Open Book Stretch Sidelying Exercise Name added to HEP Side bilateral Reps/Minutes 5 x 3-5SH ea Standing Exercises PPT Standing Exercise Name at wall - added to HEP Reps/Minutes 8 x 5SH Comments improved self-awareness calf stretch Standing Exercise Name HEP review Side bilateral Reps/Minutes 30x2 Comments cued to step back from wall for deeper stretch instead of fwd, hip rotation Self-Care/Home Management Treatment Education Patient Education Body Mechanics,Home Exercise Program,Posture Other Education Explained TrA role in core and interplay w/ diaphragm and pelvic floor, and relationship w/ breathholding. Taught pt how to self-monitor TrA activation medial to ant. iliac sp. Added to HEP: PPT at wall, HS and ITB stretch w/ strap, Open Book stretch - HO given. PT-OP-T Assessment and Plan Start: 12/20/21 15:29 Freq: Status: Active Protocol: Document 12/28/21 13:54 NB (Rec: 12/28/21 19:10 [facility] [id number]) Physical Therapy Assessment Goals Two Short Term Goal (STG) Isela will move from sit to stand without pain. STG Duration 4 weeks Fruit Press Operator Goal (LTG) Isela will perform car transfers after a [address] without increased pain or stiffness. LTG Duration 8 weeks One Impairment HEP Short Term Goal (STG) Isela will be independent with a HEP for core and LE stabilization and stretching. STG Duration 4 weeks Assessment Summary Assessment Treatment focus on HEP review of IT band and calf stretches and initiating core stabilization education and HEP. Pt's self-awareness of posterior pelvic tilt improves with repetitions at the wall, and TrA recruitment improves w/ education and self- monitoring medial to ant. iliac sp. in supine. Pt requires cues for slower pacing, transitions, and to avoid breathholding for supine exercises w/ Transverse abdominus focus but pt's self- awareness improves by end of session. Pt noted IT band stretch was the HEP stretch she had been unable to tolerate more than 20 sec at home but this visit she performs for 60s each leg without increase in baseline symptoms and w/ cues for knee bend and slower gentle position changes. Pt requires initial cues w/ calf stretch for squaring hips and to step back from wall for deeper stretch instead of forward. HEP HO given: PPT at wall, HS and ITB stretch w/ strap, Open Book stretch. Physical Therapy Plan Next Visit Focus/Plan Next Note Type Treatment Note Next Visit Plan Review HEP: PPT at wall/supine , HS and ITB stretch w/ strap, Open Book stretch; progress core stabilization HEP ( consider adding BKFO). Consider balance assessment as PT progresses.
--- NOTE | 2021-12-30 12:29 | PT.OTN ---
Current Diagnoses Low back pain, unspecified (12/30/21) Physical Therapy Treatment Note PT-OP-A Visit Information Start: 12/20/21 15:29 Freq: Status: Active Protocol: Document 12/30/21 08:19 AMB (Rec: 12/30/21 08:56 AMB [id number]) Out-Patient Physical Therapy Visit Information Visit Information Visit Type Treatment Note Visit Start Time 08:15 Visit Stop Time 09:00 Total Visit Minutes 45 Visit Number 3 PT-OP-B Current Condition Start: 12/20/21 15:29 Freq: Status: Active Protocol: Document 12/24/21 11:15 AMB (Rec: 12/24/21 11:26 AMB [id number]) Current Condition History of Current Condition Onset Date year ago Current Complaints Back/ LE stiffness/weakness History of Current Condition Isela went to her doctor as she has been noticing some stiffness in her back and legs and was worried about muscular dystrophy since her mom and sister had late onset (in their 40s MD). Her physician was not especially concerned about that, but was more thinking the stiffness and weakness in her legs was coming from her back. She does have a history of back pain and LE stiffness and has had prior PT for her back pain and continues on with those exercises about 20 min/day. Does do morning stretching routine, as well as t band and weight exercises. Did fall off bike but otherwise denies falls. Prior to previous physical therapy stiffness was worst in the morning, now does HEP in the morning and that helps, but notes that if she is seated for 15 minutes legs and back stiffness up, and spongey feet sensation seems to be coorelated to this . Fairly bilateral. Does have an old IT band injury. Prior Treatments and Tests X-ray did show L3 levoscoliosis, moderate to severe disc degeneration worst at L4-L5. Treatment Goals Patient/Caregiver Goals Exercises for back/leg stiffness with sitting. Prior Functional Status Baseline Function- ADL's Independent Baseline Function- Mobility Independent Current Functional Impairments (Reported) Functional Limitations- ADL's Stiffness in the morning or with sitting, extended car rides, etc. PT-OP-C Subjective Start: 12/20/21 15:29 Freq: Status: Active Protocol: Document 12/30/21 08:19 AMB (Rec: 12/30/21 08:56 AMB [id number]) OP-PT Subjective Patient Comments Patient Comments Pt went to the [employer] yesterday and did a lot of stairs, so is feeling a little stiff today. PT-OP-K Range of Motion Start: 12/20/21 15:29 Freq: Status: Active Protocol: Document 12/24/21 11:38 AMB (Rec: 12/24/21 12:02 AMB [id number]) Lumbar Spine Range of Motion Lumbar Spine Active Degrees Flexion 50 Extension 20 Lateral Flexion Left 20 Lateral Flexion Right 20 PT-OP-M Strength Start: 12/20/21 15:29 Freq: Status: Active Protocol: Document 12/24/21 11:15 AMB (Rec: 12/25/21 21:45 AMB [id number]) Hip Strength Hip Manual Muscle Testing Right Flexion (L2) 4 Good Extension (S1) 4+ Good+ Abduction 4+ Good+ Left Flexion (L2) 4 Good Extension (S1) 4+ Good+ Abduction 4+ Good+ Knee Strength Knee Manual Muscle Testing Right Flexion (S2) 5 Normal Extension (L3) 5 Normal Left Flexion (S2) 5 Normal Extension (L3) 5 Normal PT-OP-Q Treatments Start: 12/20/21 15:29 Freq: Status: Active Protocol: Document 12/30/21 08:19 AMB (Rec: 12/30/21 08:56 AMB [id number]) Therapeutic Exercises Supine Exercises LTR Side bilateral Reps/Minutes 10 TrA Supine Exercise Name 1. w/PPT 2. BKFO Side bilateral Reps/Minutes x10 Comments self-monitoring medial to ant. iliac sp. cues for breathing, pacing, TrA HS stretch Supine Exercise Name added to HEP Side bilateral Equipment Used w/ strap Reps/Minutes 30x2 IT band stretch Supine Exercise Name HEP review Side bilateral Equipment Used w/ strap Reps/Minutes 30x2 Standing Exercises PPT Standing Exercise Name at wall - added to HEP Reps/Minutes 8 x 5SH Comments improved self-awareness calf stretch Standing Exercise Name HEP review Side bilateral Reps/Minutes 30x2 Comments cued to step back from wall for deeper stretch instead of fwd, hip rotation Neuro Re-Education Treatment Balance Activities 1 Details single leg stance Comments challenging PT-OP-T Assessment and Plan Start: 12/20/21 15:29 Freq: Status: Active Protocol: Document 12/30/21 08:19 AMB (Rec: 12/30/21 08:56 AMB [id number]) Physical Therapy Assessment Goals Two Short Term Goal (STG) Isela will move from sit to stand without pain. STG Duration 4 weeks Production Counter Goal (LTG) Isela will perform car transfers after a [address] without increased pain or stiffness. LTG Duration 8 weeks One Impairment HEP Short Term Goal (STG) Isela will be independent with a HEP for core and LE stabilization and stretching. STG Duration 4 weeks Assessment Summary Assessment Isela is doing well, but continues to have stiffness with extended stationary positioning. States has always had issues with balance , but was challenged by single leg stance. Physical Therapy Plan Next Visit Focus/Plan Next Note Type Treatment Note Next Visit Plan Review HEP: PPT at wall/supine , HS and ITB stretch w/ strap, Open Book stretch; progress core stabilization HEP ( consider adding BKFO). LTR, single leg stance for balance
--- NOTE | 2022-01-03 08:57 | PT.OTN ---
Current Diagnoses Low back pain, unspecified (01/03/22) Physical Therapy Treatment Note PT-OP-A Visit Information Start: 12/20/21 15:29 Freq: Status: Active Protocol: Document 01/03/22 08:18 AMB (Rec: 01/03/22 08:57 AMB [id number]) Out-Patient Physical Therapy Visit Information Visit Information Visit Type Treatment Note Visit Start Time 08:15 Visit Stop Time 09:00 Total Visit Minutes 45 Visit Number 4 PT-OP-B Current Condition Start: 12/20/21 15:29 Freq: Status: Active Protocol: Document 12/24/21 11:15 AMB (Rec: 12/24/21 11:26 AMB [id number]) Current Condition History of Current Condition Onset Date year ago Current Complaints Back/ LE stiffness/weakness History of Current Condition Isela went to her doctor as she has been noticing some stiffness in her back and legs and was worried about muscular dystrophy since her mom and sister had late onset (in their 40s MD). Her physician was not especially concerned about that, but was more thinking the stiffness and weakness in her legs was coming from her back. She does have a history of back pain and LE stiffness and has had prior PT for her back pain and continues on with those exercises about 20 min/day. Does do morning stretching routine, as well as t band and weight exercises. Did fall off bike but otherwise denies falls. Prior to previous physical therapy stiffness was worst in the morning, now does HEP in the morning and that helps, but notes that if she is seated for 15 minutes legs and back stiffness up, and spongey feet sensation seems to be coorelated to this . Fairly bilateral. Does have an old IT band injury. Prior Treatments and Tests X-ray did show L3 levoscoliosis, moderate to severe disc degeneration worst at L4-L5. Treatment Goals Patient/Caregiver Goals Exercises for back/leg stiffness with sitting. Prior Functional Status Baseline Function- ADL's Independent Baseline Function- Mobility Independent Current Functional Impairments (Reported) Functional Limitations- ADL's Stiffness in the morning or with sitting, extended car rides, etc. PT-OP-C Subjective Start: 12/20/21 15:29 Freq: Status: Active Protocol: Document 01/03/22 08:18 AMB (Rec: 01/03/22 08:57 AMB [id number]) OP-PT Subjective Patient Comments Patient Comments Has been feeling better. Doing stretches and core stretches, does not R hip pain with sleeping. PT-OP-K Range of Motion Start: 12/20/21 15:29 Freq: Status: Active Protocol: Document 12/24/21 11:38 AMB (Rec: 12/24/21 12:02 AMB [id number]) Lumbar Spine Range of Motion Lumbar Spine Active Degrees Flexion 50 Extension 20 Lateral Flexion Left 20 Lateral Flexion Right 20 PT-OP-M Strength Start: 12/20/21 15:29 Freq: Status: Active Protocol: Document 12/24/21 11:15 AMB (Rec: 12/25/21 21:45 AMB [id number]) Hip Strength Hip Manual Muscle Testing Right Flexion (L2) 4 Good Extension (S1) 4+ Good+ Abduction 4+ Good+ Left Flexion (L2) 4 Good Extension (S1) 4+ Good+ Abduction 4+ Good+ Knee Strength Knee Manual Muscle Testing Right Flexion (S2) 5 Normal Extension (L3) 5 Normal Left Flexion (S2) 5 Normal Extension (L3) 5 Normal PT-OP-Q Treatments Start: 12/20/21 15:29 Freq: Status: Active Protocol: Document 01/03/22 08:18 AMB (Rec: 01/03/22 08:57 AMB [id number]) Therapeutic Exercises Supine Exercises SLR Reps/Minutes 2x10 piriformis strethc Reps/Minutes 30x2 LTR Side bilateral Reps/Minutes 10 TrA Supine Exercise Name 1. w/PPT 2. BKFO Side bilateral Reps/Minutes x10 Comments self-monitoring medial to ant. iliac sp. cues for breathing, pacing, TrA HS stretch Supine Exercise Name added to HEP Side bilateral Equipment Used w/ strap Reps/Minutes 30x2 IT band stretch Supine Exercise Name HEP review Side bilateral Equipment Used w/ strap Reps/Minutes 30x2 Sidelying Exercises clamshell Side bilateral Reps/Minutes 2x10 Manual Therapy Treatment Soft Tissue Mobilization IT band Body Position 10 min Comments bilateral PT-OP-T Assessment and Plan Start: 12/20/21 15:29 Freq: Status: Active Protocol: Document 01/03/22 08:18 AMB (Rec: 01/03/22 08:57 AMB [id number]) Physical Therapy Assessment Goals Two Short Term Goal (STG) Isela will move from sit to stand without pain. STG Duration 4 weeks Halfway Goal (LTG) Isela will perform car transfers after a [address] without increased pain or stiffness. LTG Duration 8 weeks One Impairment HEP Short Term Goal (STG) Isela will be independent with a HEP for core and LE stabilization and stretching. STG Duration 4 weeks Assessment Summary Assessment Isela is doing better with her stiffness in the morning. Did need continued cues for TA with SLR, but is doing well with her stretches. Physical Therapy Plan Next Visit Focus/Plan Next Note Type Treatment Note Next Visit Plan Review HEP: PPT at wall/supine , HS and ITB stretch w/ strap, Open Book stretch; progress core stabilization HEP ( consider adding BKFO). LTR, single leg stance for balance
--- NOTE | 2022-01-11 09:02 | PT.OTN ---
Current Diagnoses Low back pain, unspecified (01/11/22) Physical Therapy Treatment Note PT-OP-A Visit Information Start: 12/20/21 15:29 Freq: Status: Active Protocol: Document 01/11/22 08:18 NBM (Rec: 01/11/22 09:01 NBM [id number]) Out-Patient Physical Therapy Visit Information Visit Information Visit Type Treatment Note Visit Start Time 08:15 Visit Stop Time 08:55 Total Visit Minutes 40 Visit Number 5 Number of OPTIMIZATION MANAGER Visits 1 PT-OP-B Current Condition Start: 12/20/21 15:29 Freq: Status: Active Protocol: Document 12/24/21 11:15 AMB (Rec: 12/24/21 11:26 AMB [id number]) Current Condition History of Current Condition Onset Date year ago Current Complaints Back/ LE stiffness/weakness History of Current Condition Isela went to her doctor as she has been noticing some stiffness in her back and legs and was worried about muscular dystrophy since her mom and sister had late onset (in their 40s MD). Her physician was not especially concerned about that, but was more thinking the stiffness and weakness in her legs was coming from her back. She does have a history of back pain and LE stiffness and has had prior PT for her back pain and continues on with those exercises about 20 min/day. Does do morning stretching routine, as well as t band and weight exercises. Did fall off bike but otherwise denies falls. Prior to previous physical therapy stiffness was worst in the morning, now does HEP in the morning and that helps, but notes that if she is seated for 15 minutes legs and back stiffness up, and spongey feet sensation seems to be coorelated to this . Fairly bilateral. Does have an old IT band injury. Prior Treatments and Tests X-ray did show L3 levoscoliosis, moderate to severe disc degeneration worst at L4-L5. Treatment Goals Patient/Caregiver Goals Exercises for back/leg stiffness with sitting. Prior Functional Status Baseline Function- ADL's Independent Baseline Function- Mobility Independent Current Functional Impairments (Reported) Functional Limitations- ADL's Stiffness in the morning or with sitting, extended car rides, etc. PT-OP-C Subjective Start: 12/20/21 15:29 Freq: Status: Active Protocol: Document 01/11/22 08:18 NBM (Rec: 01/11/22 09:01 NBM [id number]) OP-PT Subjective Patient Comments Patient Comments Pt reports R hip pain was really bad last night. Pt thinks the stretching has helped with the strength in her R leg which she notices when getting up from a chair or walking upstairs. Pt has been working on balance at home. PT-OP-K Range of Motion Start: 12/20/21 15:29 Freq: Status: Active Protocol: Document 12/24/21 11:38 AMB (Rec: 12/24/21 12:02 AMB [id number]) Lumbar Spine Range of Motion Lumbar Spine Active Degrees Flexion 50 Extension 20 Lateral Flexion Left 20 Lateral Flexion Right 20 PT-OP-M Strength Start: 12/20/21 15:29 Freq: Status: Active Protocol: Document 12/24/21 11:15 AMB (Rec: 12/25/21 21:45 AMB [id number]) Hip Strength Hip Manual Muscle Testing Right Flexion (L2) 4 Good Extension (S1) 4+ Good+ Abduction 4+ Good+ Left Flexion (L2) 4 Good Extension (S1) 4+ Good+ Abduction 4+ Good+ Knee Strength Knee Manual Muscle Testing Right Flexion (S2) 5 Normal Extension (L3) 5 Normal Left Flexion (S2) 5 Normal Extension (L3) 5 Normal PT-OP-Q Treatments Start: 12/20/21 15:29 Freq: Status: Active Protocol: Document 01/11/22 08:18 NBM (Rec: 01/11/22 09:01 NBM [id number]) Cardio Equipment Recumbent Elliptical (Biodex) Duration (Minutes) 6 Resistance 4 Seat Position 7 (yellow) Therapeutic Exercises Supine Exercises LTR Side bilateral Reps/Minutes 10 TrA Supine Exercise Name 1. w/PPT 2. BKFO Side bilateral Reps/Minutes x10 Comments self-monitoring medial to ant. iliac sp. cues for breathing, pacing, TrA Sidelying Exercises Open Book Stretch Side bilateral Equipment Used pillow between knees/ankles Reps/Minutes 5 x 3-5SH ea Comments cues for form Standing Exercises PPT Standing Exercise Name at wall Reps/Minutes 8 x 5SH Comments improved self-awareness Manual Therapy Treatment Soft Tissue Mobilization IT band Body Location R TFL, IT band gemellus, glute medius Intensity/Depth mod Body Position Sidelying Comments good feedback response Neuro Re-Education Treatment Balance Activities 1 Details single leg stance Equipment mat table for initial PROPOSITION PLAYER Comments challenging RLE >LLE, improves w/ cue for glute activation- LOB w/ recovery w/ RLE stance Self-Care/Home Management Treatment Education Patient Education Home Exercise Program Other Education Added BKFO to HEP: HO given PT-OP-T Assessment and Plan Start: 12/20/21 15:29 Freq: Status: Active Protocol: Document 01/11/22 08:18 [facility] (Rec: 01/11/22 09:01 [facility] [id number]) Physical Therapy Assessment Goals Two Short Term Goal (STG) Isela will move from sit to stand without pain. STG Duration 4 weeks Branch Or Department Chief Librarian Goal (LTG) Isela will perform car transfers after a [address] without increased pain or stiffness. LTG Duration 8 weeks One Impairment HEP Short Term Goal (STG) Isela will be independent with a HEP for core and LE stabilization and stretching. STG Duration 4 weeks Assessment Summary Assessment Isela is challenged w/ single leg balance RLE >LLE, w/ LOB w / step recovery w/ RLE stance. SLS improves w/ cue for glute activation. Pt has palpable tightness in R TFL and Gluteus medius which decreases with manual therapy. Core engagement is challenging for pt to maintain w/ lower trunk rotation. Added BKFO to HEP: HO given. Physical Therapy Plan Next Visit Focus/Plan Next Note Type Treatment Note Next Visit Plan Review HEP: Open Book stretch, BKFO, LTR, SLS for balance; progress core stabilization HEP (consider quadruped).
--- NOTE | 2022-01-14 16:00 | PT.OTN ---
Current Diagnoses Low back pain, unspecified (02/22/22) Physical Therapy Treatment Note PT-OP-A Visit Information Start: 12/20/21 15:29 Freq: Status: Active Protocol: Document 01/14/22 12:17 NBM (Rec: 01/14/22 16:25 NBM [id number]) Out-Patient Physical Therapy Visit Information Visit Information Visit Type Treatment Note Visit Start Time 12:17 Visit Stop Time 12:55 Total Visit Minutes 38 Visit Number 6 Number of ELECTRIC WHEELCHAIR REPAIRER Visits 2 PT-OP-B Current Condition Start: 12/20/21 15:29 Freq: Status: Active Protocol: Document 12/24/21 11:15 AMB (Rec: 12/24/21 11:26 AMB [id number]) Current Condition History of Current Condition Onset Date year ago Current Complaints Back/ LE stiffness/weakness History of Current Condition Isela went to her doctor as she has been noticing some stiffness in her back and legs and was worried about muscular dystrophy since her mom and sister had late onset (in their 40s MD). Her physician was not especially concerned about that, but was more thinking the stiffness and weakness in her legs was coming from her back. She does have a history of back pain and LE stiffness and has had prior PT for her back pain and continues on with those exercises about 20 min/day. Does do morning stretching routine, as well as t band and weight exercises. Did fall off bike but otherwise denies falls. Prior to previous physical therapy stiffness was worst in the morning, now does HEP in the morning and that helps, but notes that if she is seated for 15 minutes legs and back stiffness up, and spongey feet sensation seems to be coorelated to this . Fairly bilateral. Does have an old IT band injury. Prior Treatments and Tests X-ray did show L3 levoscoliosis, moderate to severe disc degeneration worst at L4-L5. Treatment Goals Patient/Caregiver Goals Exercises for back/leg stiffness with sitting. Prior Functional Status Baseline Function- ADL's Independent Baseline Function- Mobility Independent Current Functional Impairments (Reported) Functional Limitations- ADL's Stiffness in the morning or with sitting, extended car rides, etc. PT-OP-C Subjective Start: 12/20/21 15:29 Freq: Status: Active Protocol: Document 01/14/22 12:17 NBM (Rec: 01/14/22 16:25 NBM [id number]) OP-PT Subjective Patient Comments Patient Comments Pt reports she has done her exercises today and has R hip soreness. She notices her single leg balance improves when she squeezes her glutes. PT-OP-K Range of Motion Start: 12/20/21 15:29 Freq: Status: Active Protocol: Document 12/24/21 11:38 AMB (Rec: 12/24/21 12:02 AMB [id number]) Lumbar Spine Range of Motion Lumbar Spine Active Degrees Flexion 50 Extension 20 Lateral Flexion Left 20 Lateral Flexion Right 20 PT-OP-M Strength Start: 12/20/21 15:29 Freq: Status: Active Protocol: Document 12/24/21 11:15 AMB (Rec: 12/25/21 21:45 AMB [id number]) Hip Strength Hip Manual Muscle Testing Right Flexion (L2) 4 Good Extension (S1) 4+ Good+ Abduction 4+ Good+ Left Flexion (L2) 4 Good Extension (S1) 4+ Good+ Abduction 4+ Good+ Knee Strength Knee Manual Muscle Testing Right Flexion (S2) 5 Normal Extension (L3) 5 Normal Left Flexion (S2) 5 Normal Extension (L3) 5 Normal PT-OP-Q Treatments Start: 12/20/21 15:29 Freq: Status: Active Protocol: Document 01/14/22 12:17 NBM (Rec: 01/14/22 16:25 NBM [id number]) Therapeutic Exercises Supine Exercises SLR Side bilateral Reps/Minutes 2x10 Comments good TrA activation throughout movement piriformis strethc Reps/Minutes 45x2 Comments added to HEP LTR Supine Exercise Name w/o and w/ physio ball Side bilateral Equipment Used 55 cm ball Reps/Minutes 10 ea TrA Supine Exercise Name 1. w/PPT 2. BKFO Side bilateral Reps/Minutes x10 Comments self-monitoring medial to ant. iliac sp. cues for breathing, pacing, TrA HS stretch Side bilateral Equipment Used w/ strap Reps/Minutes x 5 breaths Comments cues for holding stretch IT band stretch Side bilateral Equipment Used w/ strap Reps/Minutes 30x2 Comments cues for holding stretch Sidelying Exercises clamshell Side bilateral Reps/Minutes 2x10 Open Book Stretch Side bilateral Equipment Used pillow between knees/ankles Reps/Minutes 5 x 3-5SH ea Comments cues for form Manual Therapy Treatment Soft Tissue Mobilization IT band Body Location R TFL, IT band gemellus, glute medius Intensity/Depth mod Body Position Sidelying Comments good feedback response Self-Care/Home Management Treatment Education Patient Education Home Exercise Program Other Education Added to HEP: piriformis stretch - HO given. PT-OP-R Modalities Start: 12/20/21 15:29 Freq: Status: Active Protocol: Document 01/17/22 15:26 [facility] (Rec: 01/17/22 21:42 [facility] [id number]) Hot Pack/Cold Pack Treatment Hot Pack Location R hip w/ strap Patient Position Supine Treatment Duration (minutes) 5 Patient Tolerance Good Comments shorter duration per pt's request d/t appointment following. PT-OP-T Assessment and Plan Start: 12/20/21 15:29 Freq: Status: Active Protocol: Document 01/14/22 12:17 [facility] (Rec: 03/07/22 00:46 [facility] [id number]-) Physical Therapy Assessment Goals Two Short Term Goal (STG) Isela will move from sit to stand without pain. STG Duration MET Passenger Agent Goal (LTG) [place] will perform car transfers after a [address] without increased pain or stiffness. 01/14/22: Pt thinks is getting better, especially when she remembers to engage core (pull belly button in slightly/ flatten back) LTG Duration 8 weeks One Impairment HEP Short Term Goal (STG) Isela will be independent with a HEP for core and LE stabilization and stretching. STG Duration 4 weeks Assessment Summary Assessment Isela demonstrates improved single leg balance and self- awareness for glute activation . She continues to require cues for holding stretches at least 30 seconds and hold time improves with cues to hold for 5-8 breaths. Added to HEP: piriformis stretch - HO given . Physical Therapy Plan Frequency and Duration Frequency of Treatment 2x/Week Duration of treatment (weeks) 8 Plan of Care Start Date 12/24/21 Plan of Care End Date 02/18/22 Therapeutic Interventions Therapeutic Interventions Balance Training,Gait Training ,Home Exercise Program,Manual Therapy,Neuromuscular Re- education,Self-Care/Home Management,Soft Tissue Mobilization,Therapeutic Activities,Therapeutic Exercises Modalities Cold Pack/Ice Massage,Electric Stimulation,Hot Packs, Ultrasound Discharge Physical Therapy Discharge Reasons Goals Met Next Visit Focus/Plan Next Note Type Treatment Note Next Visit Plan Review HEP: Open Book stretch, BKFO, LTR, SLS for balance; progress core stabilization HEP (consider quadruped).
--- NOTE | 2022-01-17 17:00 | PT.OTN ---
Current Diagnoses Low back pain, unspecified (01/17/22) Physical Therapy Treatment Note PT-OP-A Visit Information Start: 12/20/21 15:29 Freq: Status: Active Protocol: Document 01/17/22 15:26 NBM (Rec: 01/17/22 16:08 NB [id number]) Out-Patient Physical Therapy Visit Information Visit Information Visit Type Treatment Note Visit Start Time 15:20 Visit Stop Time 16:05 Total Visit Minutes 45 Visit Number 7 Number of TICKET ATTENDANT Visits 3 PT-OP-B Current Condition Start: 12/20/21 15:29 Freq: Status: Active Protocol: Document 12/24/21 11:15 AMB (Rec: 12/24/21 11:26 AMB [id number]) Current Condition History of Current Condition Onset Date year ago Current Complaints Back/ LE stiffness/weakness History of Current Condition Isela went to her doctor as she has been noticing some stiffness in her back and legs and was worried about muscular dystrophy since her mom and sister had late onset (in their 40s MD). Her physician was not especially concerned about that, but was more thinking the stiffness and weakness in her legs was coming from her back. She does have a history of back pain and LE stiffness and has had prior PT for her back pain and continues on with those exercises about 20 min/day. Does do morning stretching routine, as well as t band and weight exercises. Did fall off bike but otherwise denies falls. Prior to previous physical therapy stiffness was worst in the morning, now does HEP in the morning and that helps, but notes that if she is seated for 15 minutes legs and back stiffness up, and spongey feet sensation seems to be coorelated to this . Fairly bilateral. Does have an old IT band injury. Prior Treatments and Tests X-ray did show L3 levoscoliosis, moderate to severe disc degeneration worst at L4-L5. Treatment Goals Patient/Caregiver Goals Exercises for back/leg stiffness with sitting. Prior Functional Status Baseline Function- ADL's Independent Baseline Function- Mobility Independent Current Functional Impairments (Reported) Functional Limitations- ADL's Stiffness in the morning or with sitting, extended car rides, etc. PT-OP-C Subjective Start: 12/20/21 15:29 Freq: Status: Active Protocol: Document 01/17/22 15:26 NBM (Rec: 01/17/22 16:08 NBM [id number]) OP-PT Subjective Patient Comments Patient Comments Pt states R hip was sore but she notices it was feeling better after doing her exercises this morning. PT-OP-K Range of Motion Start: 12/20/21 15:29 Freq: Status: Active Protocol: Document 12/24/21 11:38 AMB (Rec: 12/24/21 12:02 AMB [id number]) Lumbar Spine Range of Motion Lumbar Spine Active Degrees Flexion 50 Extension 20 Lateral Flexion Left 20 Lateral Flexion Right 20 PT-OP-M Strength Start: 12/20/21 15:29 Freq: Status: Active Protocol: Document 12/24/21 11:15 AMB (Rec: 12/25/21 21:45 AMB [id number]) Hip Strength Hip Manual Muscle Testing Right Flexion (L2) 4 Good Extension (S1) 4+ Good+ Abduction 4+ Good+ Left Flexion (L2) 4 Good Extension (S1) 4+ Good+ Abduction 4+ Good+ Knee Strength Knee Manual Muscle Testing Right Flexion (S2) 5 Normal Extension (L3) 5 Normal Left Flexion (S2) 5 Normal Extension (L3) 5 Normal PT-OP-Q Treatments Start: 12/20/21 15:29 Freq: Status: Active Protocol: Document 01/17/22 15:26 NBM (Rec: 01/17/22 16:08 NBM [id number]) Cardio Equipment Recumbent Elliptical (Biodex) Duration (Minutes) 6 Resistance 4 Seat Position 6 (yellow) Therapeutic Exercises Supine Exercises LTR Supine Exercise Name w/ physio ball Side bilateral Equipment Used 55 cm ball Reps/Minutes 10 ea Prone Exercises Child's pose stretch Prone Exercise Name fwd/lat - added to HEP Reps/Minutes 30 ea Comments good feedback response Quadruped Prone Exercise Name 1. Cat/Camel -added to HEP 2. Alt UE reach 3. Alt LE ext Side bilateral Equipment Used tissue box (biofeedback for hip rot. w/ Alt LE ext) Reps/Minutes x10 ea Comments fist d/t wrist pn; vc breathing; tissue box biofeedback hip rot w/LE ext Sidelying Exercises clamshell Side bilateral Reps/Minutes 2x10 ea Comments cues not to rock back Open Book Stretch Side bilateral Equipment Used pillow between knees/ankles Reps/Minutes 5 x 3-5SH ea Comments cues for form Manual Therapy Treatment Soft Tissue Mobilization IT band Body Location R TFL, IT band gemellus, glute medius Mobilization Type Cross-Friction,Instrument Assisted,Rolling,Sustained Pressure Intensity/Depth Moderate Body Position Sidelying Comments good feedback response. STM w/ tennis ball to R IT band. Pt trialed self-STM w/ tennis ball along ITB, seated w/ ball under glutes/ piriformis, and standing at wall on ITB, glutes and piriformis - added to HEP. Self-Care/Home Management Treatment Education Patient Education Home Exercise Program,Pain Management Other Education Explained Self-STM w/ tennis ball for hip. Self-STM, Cat/Camel, and Child 's Pose added to HEP - HO given. PT-OP-R Modalities Start: 12/20/21 15:29 Freq: Status: Active Protocol: Document 01/17/22 15:26 [facility] (Rec: 01/17/22 21:42 [facility] [id number]) Hot Pack/Cold Pack Treatment Hot Pack Location R hip w/ strap Patient Position Supine Treatment Duration (minutes) 5 Patient Tolerance Good Comments shorter duration per pt's request d/t appointment following. PT-OP-T Assessment and Plan Start: 12/20/21 15:29 Freq: Status: Active Protocol: Document 01/17/22 15:26 [facility] (Rec: 01/17/22 16:08 [facility] [id number]) Physical Therapy Assessment Goals Two Short Term Goal (STG) Isela will move from sit to stand without pain. STG Duration 4 weeks Information Developer Goal (LTG) Isela will perform car transfers after a [address] without increased pain or stiffness. 01/14/22: Pt thinks is getting better, especially when she remembers to engage core (pull belly button in slightly/ flatten back) LTG Duration 8 weeks One Impairment HEP Short Term Goal (STG) Isela will be independent with a HEP for core and LE stabilization and stretching. STG Duration 4 weeks Assessment Summary Assessment Pt requires cues for gentle transitions and is challenged w/ excessive hip rotation with quadruped alternating lower extremity extension exercise but improves w/ biofeedback to low back. Good feedback response to self-STM to R hip w/ tennis ball at wall. Self- STM, Cat/Camel, and Child's Pose added to HEP - HO given. Physical Therapy Plan Frequency and Duration Frequency of Treatment 2x/Week Duration of treatment (weeks) 8 Plan of Care Start Date 12/24/21 Plan of Care End Date 02/18/22 Therapeutic Interventions Therapeutic Interventions Balance Training,Gait Training ,Home Exercise Program,Manual Therapy,Neuromuscular Re- education,Self-Care/Home Management,Soft Tissue Mobilization,Therapeutic Activities,Therapeutic Exercises Modalities Cold Pack/Ice Massage,Electric Stimulation,Hot Packs, Ultrasound Next Visit Focus/Plan Next Note Type Treatment Note Next Visit Plan Assess response to self-STM. Review HEP: LTR, SLS for balance; progress core stabilization HEP. Consider progressing s/l clamshells w/ Tb and issuing quadruped alt extremities core ex for HEP.
--- NOTE | 2022-02-22 10:43 | PT.OPPOC ---
Physical, Occupational & Speech Therapy At [facility] Current Diagnoses Low back pain, unspecified (02/22/22) Visit Care Team Role Provider Type Jj Vora DO Attending Provider Physician Family Provider Primary Care Provider Referring Provider Specialty: Family Practice Address: [address] [place] [address], [address] Email: [email or web address] Plan Of Care PT-OP-T Assessment and Plan Start: 12/20/21 15:29 Freq: Status: Active Protocol: Document 02/22/22 09:04 AMB (Rec: 02/22/22 09:44 AMB [id number]) Physical Therapy Assessment Goals Two Short Term Goal (STG) Isela will move from sit to stand without pain. STG Duration MET Jail Goal (LTG) Isela will perform car transfers after a [address] without increased pain or stiffness. 01/14/22: Pt thinks is getting better, especially when she remembers to engage core (pull belly button in slightly/ flatten back) LTG Duration MET One Impairment HEP Short Term Goal (STG) Isela will be independent with a HEP for core and LE stabilization and stretching. STG Duration MET Assessment Summary Assessment Isela, while she still has pain and stiffness in the morning, feels like she has the exercises necessary to continue to progress independently at this point. She is therefore discharged. Physical Therapy Plan Frequency and Duration Frequency of Treatment 1x/Week Duration of treatment (weeks) 1 Plan of Care Start Date 02/18/22 Plan of Care End Date 02/25/22 Therapeutic Interventions Therapeutic Interventions Balance Training,Gait Training ,Home Exercise Program,Manual Therapy,Neuromuscular Re- education,Self-Care/Home Management,Soft Tissue Mobilization,Therapeutic Activities,Therapeutic Exercises Modalities Cold Pack/Ice Massage,Electric Stimulation,Hot Packs, Ultrasound Discharge Physical Therapy Discharge Reasons Goals Met Plan of Care Dates Plan of Care Start Date 02/18/22 Plan of Care End Date 02/25/22 Electronically Signed by: Salena Leal, PT 02/28/22 0833 If you are in agreement with this Plan of Care, please return a signed and dated copy. I have reviewed this Plan of Care and certify that the skilled therapy services above are required to meet the patient?s needs. Physician Signature Date Printed Name and Credentials Clinical Instructor Signature Printed Name and Credentials
--- NOTE | 2022-02-22 10:43 | PT.OTN ---
Current Diagnoses Low back pain, unspecified (02/22/22) Physical Therapy Treatment Note PT-OP-A Visit Information Start: 12/20/21 15:29 Freq: Status: Active Protocol: Document 02/22/22 09:04 AMB (Rec: 02/22/22 09:44 AMB [id number]) Out-Patient Physical Therapy Visit Information Visit Information Visit Type Treatment Note Visit Start Time 09:00 Visit Stop Time 09:45 Total Visit Minutes 45 Visit Number 8 PT-OP-B Current Condition Start: 12/20/21 15:29 Freq: Status: Active Protocol: Document 12/24/21 11:15 AMB (Rec: 12/24/21 11:26 AMB [id number]) Current Condition History of Current Condition Onset Date year ago Current Complaints Back/ LE stiffness/weakness History of Current Condition Isela went to her doctor as she has been noticing some stiffness in her back and legs and was worried about muscular dystrophy since her mom and sister had late onset (in their 40s MD). Her physician was not especially concerned about that, but was more thinking the stiffness and weakness in her legs was coming from her back. She does have a history of back pain and LE stiffness and has had prior PT for her back pain and continues on with those exercises about 20 min/day. Does do morning stretching routine, as well as t band and weight exercises. Did fall off bike but otherwise denies falls. Prior to previous physical therapy stiffness was worst in the morning, now does HEP in the morning and that helps, but notes that if she is seated for 15 minutes legs and back stiffness up, and spongey feet sensation seems to be coorelated to this . Fairly bilateral. Does have an old IT band injury. Prior Treatments and Tests X-ray did show L3 levoscoliosis, moderate to severe disc degeneration worst at L4-L5. Treatment Goals Patient/Caregiver Goals Exercises for back/leg stiffness with sitting. Prior Functional Status Baseline Function- ADL's Independent Baseline Function- Mobility Independent Current Functional Impairments (Reported) Functional Limitations- ADL's Stiffness in the morning or with sitting, extended car rides, etc. PT-OP-C Subjective Start: 12/20/21 15:29 Freq: Status: Active Protocol: Document 02/22/22 09:04 AMB (Rec: 02/22/22 09:44 AMB [id number]) OP-PT Subjective Patient Comments Patient Comments Pt returned from [facility] and feels better, thinking she needs to change out her mattress. PT-OP-K Range of Motion Start: 12/20/21 15:29 Freq: Status: Active Protocol: Document 12/24/21 11:38 AMB (Rec: 12/24/21 12:02 AMB [id number]) Lumbar Spine Range of Motion Lumbar Spine Active Degrees Flexion 50 Extension 20 Lateral Flexion Left 20 Lateral Flexion Right 20 PT-OP-M Strength Start: 12/20/21 15:29 Freq: Status: Active Protocol: Document 12/24/21 11:15 AMB (Rec: 12/25/21 21:45 AMB [id number]) Hip Strength Hip Manual Muscle Testing Right Flexion (L2) 4 Good Extension (S1) 4+ Good+ Abduction 4+ Good+ Left Flexion (L2) 4 Good Extension (S1) 4+ Good+ Abduction 4+ Good+ Knee Strength Knee Manual Muscle Testing Right Flexion (S2) 5 Normal Extension (L3) 5 Normal Left Flexion (S2) 5 Normal Extension (L3) 5 Normal PT-OP-Q Treatments Start: 12/20/21 15:29 Freq: Status: Active Protocol: Document 02/22/22 09:04 AMB (Rec: 02/22/22 09:44 AMB [id number]) Therapeutic Exercises Supine Exercises SLR Side bilateral Reps/Minutes 2x10 Comments good TrA activation throughout movement piriformis strethc Reps/Minutes 30x2 LTR Supine Exercise Name w/ physio ball Side bilateral Equipment Used 55 cm ball Reps/Minutes 10 ea TrA Supine Exercise Name 1. w/PPT 2. BKFO Side bilateral Reps/Minutes x10 Comments self-monitoring medial to ant. iliac sp. cues for breathing, pacing, TrA HS stretch Side bilateral Equipment Used w/ strap Reps/Minutes x 5 breaths Comments cues for holding stretch IT band stretch Side bilateral Equipment Used w/ strap Reps/Minutes 30x2 Comments cues for holding stretch Prone Exercises Child's pose stretch Prone Exercise Name fwd/lat - added to HEP Reps/Minutes 30 ea Comments good feedback response Sidelying Exercises clamshell Sidelying Exercise Name progressed with #2 t band Side bilateral Reps/Minutes 2x10 ea Comments cues not to rock back PT-OP-R Modalities Start: 12/20/21 15:29 Freq: Status: Active Protocol: Document 01/17/22 15:26 NB (Rec: 01/17/22 21:42 [facility] [id number]) Hot Pack/Cold Pack Treatment Hot Pack Location R hip w/ strap Patient Position Supine Treatment Duration (minutes) 5 Patient Tolerance Good Comments shorter duration per pt's request d/t appointment following. PT-OP-T Assessment and Plan Start: 12/20/21 15:29 Freq: Status: Active Protocol: Document 02/22/22 09:04 AMB (Rec: 02/22/22 09:44 AMB [id number]) Physical Therapy Assessment Goals Two Short Term Goal (STG) Isela will move from sit to stand without pain. STG Duration MET Yard Labor Supervisor Goal (LTG) Isela will perform car transfers after a [address] without increased pain or stiffness. 01/14/22: Pt thinks is getting better, especially when she remembers to engage core (pull belly button in slightly/ flatten back) LTG Duration MET One Impairment HEP Short Term Goal (STG) Isela will be independent with a HEP for core and LE stabilization and stretching. STG Duration MET Assessment Summary Assessment Isela, while she still has pain and stiffness in the morning, feels like she has the exercises necessary to continue to progress independently at this point. She is therefore discharged. Physical Therapy Plan Frequency and Duration Frequency of Treatment 1x/Week Duration of treatment (weeks) 1 Plan of Care Start Date 02/18/22 Plan of Care End Date 02/25/22 Therapeutic Interventions Therapeutic Interventions Balance Training,Gait Training ,Home Exercise Program,Manual Therapy,Neuromuscular Re- education,Self-Care/Home Management,Soft Tissue Mobilization,Therapeutic Activities,Therapeutic Exercises Modalities Cold Pack/Ice Massage,Electric Stimulation,Hot Packs, Ultrasound Discharge Physical Therapy Discharge Reasons Goals Met
--- NOTE | 2022-02-28 10:37 | PT.OTN ---
Current Diagnoses Low back pain, unspecified (02/22/22) Physical Therapy Treatment Note PT-OP-A Visit Information Start: 12/20/21 15:29 Freq: Status: Active Protocol: Document 02/22/22 09:04 AMB (Rec: 02/22/22 09:44 AMB [id number]) Out-Patient Physical Therapy Visit Information Visit Information Visit Type Treatment Note Visit Start Time 09:00 Visit Stop Time 09:45 Total Visit Minutes 45 Visit Number 8 PT-OP-B Current Condition Start: 12/20/21 15:29 Freq: Status: Active Protocol: Document 12/24/21 11:15 AMB (Rec: 12/24/21 11:26 AMB [id number]) Current Condition History of Current Condition Onset Date year ago Current Complaints Back/ LE stiffness/weakness History of Current Condition Isela went to her doctor as she has been noticing some stiffness in her back and legs and was worried about muscular dystrophy since her mom and sister had late onset (in their 40s MD). Her physician was not especially concerned about that, but was more thinking the stiffness and weakness in her legs was coming from her back. She does have a history of back pain and LE stiffness and has had prior PT for her back pain and continues on with those exercises about 20 min/day. Does do morning stretching routine, as well as t band and weight exercises. Did fall off bike but otherwise denies falls. Prior to previous physical therapy stiffness was worst in the morning, now does HEP in the morning and that helps, but notes that if she is seated for 15 minutes legs and back stiffness up, and spongey feet sensation seems to be coorelated to this . Fairly bilateral. Does have an old IT band injury. Prior Treatments and Tests X-ray did show L3 levoscoliosis, moderate to severe disc degeneration worst at L4-L5. Treatment Goals Patient/Caregiver Goals Exercises for back/leg stiffness with sitting. Prior Functional Status Baseline Function- ADL's Independent Baseline Function- Mobility Independent Current Functional Impairments (Reported) Functional Limitations- ADL's Stiffness in the morning or with sitting, extended car rides, etc. PT-OP-C Subjective Start: 12/20/21 15:29 Freq: Status: Active Protocol: Document 02/22/22 09:04 AMB (Rec: 02/22/22 09:44 AMB [id number]) OP-PT Subjective Patient Comments Patient Comments Pt returned from [facility] and feels better, thinking she needs to change out her mattress. PT-OP-K Range of Motion Start: 12/20/21 15:29 Freq: Status: Active Protocol: Document 12/24/21 11:38 AMB (Rec: 12/24/21 12:02 AMB [id number]) Lumbar Spine Range of Motion Lumbar Spine Active Degrees Flexion 50 Extension 20 Lateral Flexion Left 20 Lateral Flexion Right 20 PT-OP-M Strength Start: 12/20/21 15:29 Freq: Status: Active Protocol: Document 12/24/21 11:15 AMB (Rec: 12/25/21 21:45 AMB [id number]) Hip Strength Hip Manual Muscle Testing Right Flexion (L2) 4 Good Extension (S1) 4+ Good+ Abduction 4+ Good+ Left Flexion (L2) 4 Good Extension (S1) 4+ Good+ Abduction 4+ Good+ Knee Strength Knee Manual Muscle Testing Right Flexion (S2) 5 Normal Extension (L3) 5 Normal Left Flexion (S2) 5 Normal Extension (L3) 5 Normal PT-OP-Q Treatments Start: 12/20/21 15:29 Freq: Status: Active Protocol: Document 02/22/22 09:04 AMB (Rec: 02/22/22 09:44 AMB [id number]) Therapeutic Exercises Supine Exercises SLR Side bilateral Reps/Minutes 2x10 Comments good TrA activation throughout movement piriformis strethc Reps/Minutes 30x2 LTR Supine Exercise Name w/ physio ball Side bilateral Equipment Used 55 cm ball Reps/Minutes 10 ea TrA Supine Exercise Name 1. w/PPT 2. BKFO Side bilateral Reps/Minutes x10 Comments self-monitoring medial to ant. iliac sp. cues for breathing, pacing, TrA HS stretch Side bilateral Equipment Used w/ strap Reps/Minutes x 5 breaths Comments cues for holding stretch IT band stretch Side bilateral Equipment Used w/ strap Reps/Minutes 30x2 Comments cues for holding stretch Prone Exercises Child's pose stretch Prone Exercise Name fwd/lat - added to HEP Reps/Minutes 30 ea Comments good feedback response Sidelying Exercises clamshell Sidelying Exercise Name progressed with #2 t band Side bilateral Reps/Minutes 2x10 ea Comments cues not to rock back PT-OP-R Modalities Start: 12/20/21 15:29 Freq: Status: Active Protocol: Document 01/17/22 15:26 NB (Rec: 01/17/22 21:42 [facility] [id number]) Hot Pack/Cold Pack Treatment Hot Pack Location R hip w/ strap Patient Position Supine Treatment Duration (minutes) 5 Patient Tolerance Good Comments shorter duration per pt's request d/t appointment following. PT-OP-T Assessment and Plan Start: 12/20/21 15:29 Freq: Status: Active Protocol: Document 02/22/22 09:04 AMB (Rec: 02/22/22 09:44 AMB [id number]) Physical Therapy Assessment Goals Two Short Term Goal (STG) Isela will move from sit to stand without pain. STG Duration MET Lokie Engineer Goal (LTG) Isela will perform car transfers after a [address] without increased pain or stiffness. 01/14/22: Pt thinks is getting better, especially when she remembers to engage core (pull belly button in slightly/ flatten back) LTG Duration MET One Impairment HEP Short Term Goal (STG) Isela will be independent with a HEP for core and LE stabilization and stretching. STG Duration MET Assessment Summary Assessment Isela, while she still has pain and stiffness in the morning, feels like she has the exercises necessary to continue to progress independently at this point. She is therefore discharged. Physical Therapy Plan Frequency and Duration Frequency of Treatment 1x/Week Duration of treatment (weeks) 1 Plan of Care Start Date 02/18/22 Plan of Care End Date 02/25/22 Therapeutic Interventions Therapeutic Interventions Balance Training,Gait Training ,Home Exercise Program,Manual Therapy,Neuromuscular Re- education,Self-Care/Home Management,Soft Tissue Mobilization,Therapeutic Activities,Therapeutic Exercises Modalities Cold Pack/Ice Massage,Electric Stimulation,Hot Packs, Ultrasound Discharge Physical Therapy Discharge Reasons Goals Met
--- NOTE | 2022-02-28 10:40 | PT.OPPOC ---
Physical, Occupational & Speech Therapy At [facility] Current Diagnoses Low back pain, unspecified (02/22/22) Visit Care Team Role Provider Type Jj Vora DO Attending Provider Physician Family Provider Primary Care Provider Referring Provider Specialty: Family Practice Address: [address] [place] [address], [address] Email: [email or web address] Plan Of Care PT-OP-T Assessment and Plan Start: 12/20/21 15:29 Freq: Status: Active Protocol: Document 02/22/22 09:04 AMB (Rec: 02/22/22 09:44 AMB [id number]) Physical Therapy Assessment Goals Two Short Term Goal (STG) Isela will move from sit to stand without pain. STG Duration MET [facility] Goal (LTG) Isela will perform car transfers after a [address] without increased pain or stiffness. 01/14/22: Pt thinks is getting better, especially when she remembers to engage core (pull belly button in slightly/ flatten back) LTG Duration MET One Impairment HEP Short Term Goal (STG) Isela will be independent with a HEP for core and LE stabilization and stretching. STG Duration MET Assessment Summary Assessment Isela, while she still has pain and stiffness in the morning, feels like she has the exercises necessary to continue to progress independently at this point. She is therefore discharged. Physical Therapy Plan Frequency and Duration Frequency of Treatment 1x/Week Duration of treatment (weeks) 1 Plan of Care Start Date 02/18/22 Plan of Care End Date 02/25/22 Therapeutic Interventions Therapeutic Interventions Balance Training,Gait Training ,Home Exercise Program,Manual Therapy,Neuromuscular Re- education,Self-Care/Home Management,Soft Tissue Mobilization,Therapeutic Activities,Therapeutic Exercises Modalities Cold Pack/Ice Massage,Electric Stimulation,Hot Packs, Ultrasound Discharge Physical Therapy Discharge Reasons Goals Met Plan of Care Dates Plan of Care Start Date 02/18/22 Plan of Care End Date 02/25/22 Electronically Signed by: Salena Leal, PT 02/28/22 1047 If you are in agreement with this Plan of Care, please return a signed and dated copy. I have reviewed this Plan of Care and certify that the skilled therapy services above are required to meet the patient?s needs. Physician Signature Date Printed Name and Credentials Clinical Instructor Signature Printed Name and Credentials
== END 2022-03-21 12:59 | disposition home or self-care (01) ==
LOC: PHYS 09:00
PROVIDERS: Family Provider Family Medicine; PCP Family Medicine; Referring Provider Family Medicine; Visit Provider Family Medicine
DX: M54.50 Low back pain, unspecified (principal)
CPT/HCPCS: 97110; 97140; 97161; 97535

== ENCOUNTER → 2022-06-15 06:55 | Outpatient (CLI) | payer MEDICARE, OTHER, SELFPAY ==
[2022-06-15 08:00] LABS: Hemoglobin A1C% w Est Avg Glu 5.8 % (4.0-6.0)
[2022-06-15 09:17] LABS: Add Manual Diff / Slide Review NO; Basophils Absolute Auto 100 /uL (0-100); Eosinophils Absolute Auto 200 /uL (0-450); Eosinophils Percent Auto 4.4 % (2-4); Hemoglobin 13.1 g/dL (12.0-16.0); Lymphocytes Absolute Auto 1200 /uL (1100-4500); Lymphocytes Percent Auto 24.6 % (25-40); Mean Corpuscular HGB Conc 32.6 % (30-36); Mean Corpuscular Hemoglobin 29.5 PG (26-34); Mean Corpuscular Volume 90.4 fL (80-100); Monocytes Absolute Auto 500 /uL (0-900); Monocytes Percent Auto 10.4 % (3-14); Neutrophils Absolute Auto 3000 /uL (1500-7000); Neutrophils Percent Auto 59.6 % (50-75); Platelet Count 252 X10^3/uL (150-400); Red Blood Cell Count 4.42 X10^6/uL (4.0-5.2); Red Cell Distribution Width 14.1 % (11.6-14.8)
[2022-06-15 09:43] LABS: Alanine Aminotransferase 23 IU/L (<35); Albumin 4.2 g/dL (3.5-5.0); Albumin Globulin Ratio 1.4 (1.0-2.8); Alkaline Phosphatase 64 U/L (38-126); Aspartate Aminotransferase 25 IU/L (14-36); BUN Creatinine Ratio 29.2 (6-22); Bilirubin Total 1.1 mg/dL (0.2-1.3); Blood Urea Nitrogen 21 mg/dL (7-17); Carbon Dioxide 32 mmol/L (22-32); Chloride 101 mmol/L (98-107); Cholesterol 232 mg/dL (140-199); Estimated Glomerular Filt Rate > 60 mL/min (>60); Glucose 81 mg/dL (80-110); HDL Cholesterol 75 mg/dL (40-60); HEMOLYSIS < 15 (0-50); LDL Cholesterol Calculated 141 mg/dL (<100); Potassium 4.3 mmol/L (3.4-5.1); Sodium 139 mmol/L (137-145); Total Protein 7.2 g/dL (6.3-8.2); Triglycerides 82 mg/dL (35-150)
[2022-06-15 10:15] LABS: TSH w/ Reflex to FT4 2.91 uIU/mL (0.47-4.68)
== END ==
PROVIDERS: Family Provider Family Medicine; PCP Family Medicine; Referring Provider Family Medicine; Visit Provider Family Medicine
DX: E88.09 Other disorders of plasma-protein metabolism, not elsewhere classified (principal); E78.5 Hyperlipidemia, unspecified; K57.90 Diverticulosis of intestine, part unspecified, without perforation or abscess without bleeding; K58.9 Irritable bowel syndrome, unspecified; L65.9 Nonscarring hair loss, unspecified; Z13.9 Encounter for screening, unspecified
CPT/HCPCS: 36415; 80053; 80061; 83036; 84443; 85025

== ENCOUNTER 2023-02-10 09:00 | Outpatient (RCR) | payer MEDICARE, OTHER, SELFPAY ==
--- NOTE | 2022-12-21 09:08 | PT.OIE ---
Current Diagnoses Pain in unspecified knee (12/21/22) Patellar tendinitis, unspecified knee (12/21/22) Past Medical History (Last Updated 12/08/22 @ 09:12 by Jj Vora DO) Anxiety and depression Autoimmune disorder Borderline hyperlipidemia Cyanocobalamin deficiency Diverticulosis Endometriosis GERD (gastroesophageal reflux disease) Left shoulder pain Lichen sclerosus Lower back pain Lower extremity neuropathy Oculopharyngeal muscular dystrophy Patellar tendinitis Pre-diabetes UTI (urinary tract infection) Past Surgical History (Last Reviewed 12/08/22 @ 09:08 by Jj Vora DO) S/P total hysterectomy and BSO (bilateral salpingo-oophorectomy) (~1994) Visit Care Team Role Provider Type Jj Vora DO Attending Provider Physician Family Provider Primary Care Provider Referring Provider Specialty: [facility] Address: [address] [place] [address] Email: [email or web address] Physical Therapy Initial Evaluation PT-OP-A Visit Information Start: 12/20/22 17:09 Freq: Status: Active Protocol: Document 12/21/22 09:08 AM (Rec: 12/21/22 13:37 AM [id number]) Out-Patient Physical Therapy Visit Information Visit Information Visit Type Initial Evaluation Visit Start Time 09:09 Visit Stop Time 09:51 Total Visit Minutes 42 Visit Number 1 Number of SOFTWARE SYSTEMS ENGINEER Visits 0 Evaluation Information Evaluation Date 12/21/22 PT-OP-B Current Condition Start: 12/20/22 17:09 Freq: Status: Active Protocol: Document 12/21/22 09:08 AM (Rec: 12/21/22 13:37 AM [id number]) Current Condition History of Current Condition Onset Date 2 months ago Current Complaints Bilateral knee pain History of Current Condition Pt reports that she went on a long bike ride and her knees were sore following. Pt feels that her bike set-up might not be set up appropriately. She is going to get into a bike shop to have them assess her form. Pt reports that stopping and getting her feet to the ground is challenging to keep her balance. Pt reports that her knees her at bilateral patella. Pt reports that she converted her bike into an e- bike. Prior Functional Status Baseline Function- ADL's Independent Baseline Function- Mobility Independent Current Functional Impairments (Reported) Functional Limitations- ADL's Independent Functional Limitations- Recreation/ Pt has backed off on biking. Hobbies She is biking 3-4 miles now. Pt would like to be able to bike 20-25 miles at a time. PT-OP-C Subjective Start: 12/20/22 17:09 Freq: Status: Active Protocol: Document 12/21/22 09:08 AM (Rec: 12/21/22 13:37 AM [id number]) Patient Questionnaires Lower Extremity Functional Scale LEFS Score 61 LEFS Impairment 20 to 39% Impaired (Score 48- 62) OP-PT Pain Assessment Pain Assessment Grid Paper Pain Assessment Grid Completed Yes Location Bilateral Anterior Knee Pain Location Details Bilateral anterior knee pain Intensity 3 Scale Used Numeric (0 - 10) Description Aching Description- Other 4-5/10 Frequency Daily Pain Aggravating Factors Activity,Exercise,Sitting, Walking Other Pain Aggravating Factors biking Pain Alleviating Factors Cold,Heat PT-OP-D Balance Start: 12/20/22 17:09 Freq: Status: Active Protocol: Document 12/21/22 09:08 AM (Rec: 12/21/22 13:37 AM [id number]) Balance Tests Single Limb Standing Single Limb- Right 20 Single Limb- Left 20 PT-OP-E Functional Tests Start: 12/20/22 17:09 Freq: Status: Active Protocol: Document 12/21/22 09:08 AM (Rec: 12/21/22 13:37 AM [id number]) Functional Tests 30 Second Sit to Stand Test Score 8 Comments knee valgus Five Times Sit to Stand Test Score 17 sec Comments valgus PT-OP-F Manual Assessment Start: 12/20/22 17:09 Freq: Status: Active Protocol: Document 12/21/22 09:08 AM (Rec: 12/21/22 13:37 AM [id number]) Manual Assessments Joint Mobility Assessment Joint Mobility Assessment Hypomobility at bilateral patella PT-OP-G Mobility & Gait Start: 12/20/22 17:09 Freq: Status: Active Protocol: Document 12/21/22 09:08 AM (Rec: 12/21/22 13:37 AM [id number]) OP Gait Assessment Gait Gait Assistance Required: Independent Assistive Devices Assistive Device None Gait Deviations General Gait Pattern Within Normal Limits PT-OP-J Posture/Palpation/Skin Start: 12/20/22 17:09 Freq: Status: Active Protocol: Document 12/21/22 09:08 AM (Rec: 12/21/22 13:37 AM [id number]) Posture Evaluation Position Standing Hip Posture (L) Internally Rotated,(R) Internally Rotated Knee Posture (L) Genu Valgus,(R) Genu Valgus Comments Posture Comments Knee valgus and hip MR with squat and STS transfer PT-OP-K Range of Motion Start: 12/20/22 17:09 Freq: Status: Active Protocol: Document 12/21/22 09:08 AM (Rec: 12/21/22 13:37 AM [id number]) Knee Goniometric Range of Motion Knee Right Knee ROM WFL Yes Patient Position Supine Flexion Active (degrees) 145 Extension Active (degrees) 3 Comments Hamstring 90/90: 33 Left Knee ROM WFL Yes Patient Position Supine Flexion Active (degrees) 145 Extension Active (degrees) 3 Comments Hamstring 90/90: 25 PT-OP-M Strength Start: 12/20/22 17:09 Freq: Status: Active Protocol: Document 12/21/22 09:08 AM (Rec: 12/21/22 13:37 AM [id number]) Hip Strength Hip Manual Muscle Testing Right Flexion (L2) 3+ Fair+ Abduction 3 Fair Adduction 5 Normal External Rotation 4- Good- Internal Rotation 4- Good- Left Flexion (L2) 3+ Fair+ Abduction 3+ Fair+ Adduction 5 Normal External Rotation 4- Good- Internal Rotation 4- Good- Knee Strength Knee Manual Muscle Testing Right Flexion (S2) 4 Good Extension (L3) 4+ Good+ Left Flexion (S2) 4 Good Extension (L3) 4+ Good+ PT-OP-Q Treatments Start: 12/20/22 17:09 Freq: Status: Active Protocol: Document 12/21/22 09:08 AM (Rec: 12/21/22 13:37 AM [id number]) Therapeutic Exercises Sidelying Exercises Clamshells Sidelying Exercise Name Clamshell Side bilateral Reps/Minutes x10 Standing Exercises Lunge hip flexor stretch Side bilateral Reps/Minutes x30 sec ea Chair squat Standing Exercise Name Chair squat Side bilateral Reps/Minutes x10 Comments At hi-low table, pt able to control knee valgus at higher surface height PT-OP-T Assessment and Plan Start: 12/20/22 17:09 Freq: Status: Active Protocol: Document 12/21/22 09:08 AM (Rec: 12/21/22 13:37 AM [id number]) Physical Therapy Assessment Rehab Potential Rehabilitation Potential Excellent Evaluation Complexity Number of Personal Factors/Comorbidities 1-2 Number of Body Systems Impaired 1-2 Clinical Presentation at Evaluation Stable Impairments Impairments Activity Tolerance,Balance, Functional Activities, Functional Mobility,Gait,Pain, Posture,ROM,Soft Tissue Mobility,Strength Goals Pain Impairment Pain Impairment Pt reports pain at 5/10 at the worst Short Term Goal (STG) Pt with 3/10 knee pain at the worst. STG Duration 01/11/23 Sergeant Missile Crewman Goal (LTG) Pt with 1/10 knee pain at the worst. LTG Duration 02/01/23 Strength Impairment Hip strength impairment Impairment Pt with 3+ to 4-/5 gross hip strength bilaterally. Short Term Goal (STG) Pt with grossly 4/5 strength at bilateral hips. STG Duration 01/11/23 Sergeant Missile Crewman Goal (LTG) Pt with grossly 4+/5 strength at bilateral hips. LTG Duration 02/01/23 30 sec STS test Impairment LE strength impairment Impairment Pt able to complete 8 STS squats in 30 seconds. Short Term Goal (STG) Pt able to complete 12 STS squats in 30 seconds without knee valgus stress. STG Duration 01/11/23 Sergeant Missile Crewman Goal (LTG) Pt able to complete 15 STS squats in 30 seconds without knee valgus stress. LTG Duration 02/01/23 Biking Impairment Pain with biking Impairment Pt able to bike 3-4 miles currently, though would like to be able to bike 20-25 miles without pain. Short Term Goal (STG) Pt able to bike 10 miles without increase in knee pain. STG Duration 01/11/23 Prison Goal (LTG) Pt able to bike 20 miles without increase in knee pain. LTG Duration 02/01/23 Assessment Summary Assessment Isela Carrington presents to PT to address bilateral patellar knee pain. Pt demonstrates weakness at bilateral hips, demonstrating knee valgus and femoral MR with STS squats. Pt able to correct with cueing and higher surface height. Pt demonstrates tenderness at bilateral patellar tendons and has hypomobility at bilateral patellas. Pt demonstrates stiffness at R hip flexors in comparison to L, with reported hx of R hip pain as well. Pt would benefit from continued PT to progress LE functional strength and mobility to improve tolerance to functional and recreational activities. Physical Therapy Plan Frequency and Duration Frequency of Treatment 2x/Week Duration of treatment (weeks) 6 Plan of Care Start Date 12/21/22 Plan of Care End Date 02/01/23 Therapeutic Interventions Therapeutic Interventions Balance Training,Coordination Training,Gait Training,Home Exercise Program,Joint Mobilizations,Manual Therapy, Patient/Caregiver Education, Self-Care/Home Management,Soft Tissue Mobilization,Taping, Therapeutic Activities, Therapeutic Exercises Modalities Cold Pack/Ice Massage,Electric Stimulation,Hot Packs, Ultrasound Next Visit Focus/Plan Next Note Type Treatment Note Next Visit Plan Progress glute strengthening, progress LE flexibility, initiate manual techniques to improve patellar mobility
--- NOTE | 2022-12-21 09:08 | PT.OPPOC ---
Physical, Occupational & Speech Therapy At [facility] Current Diagnoses Pain in unspecified knee (12/21/22) Patellar tendinitis, unspecified knee (12/21/22) Visit Care Team Role Provider Type Jj Vora DO Attending Provider Physician Family Provider Primary Care Provider Referring Provider Specialty: [facility] Practice Address: [address] [place] [address], [facility] Email: [email or web address] Of [facility] PT-OP-T Assessment and Plan Start: 12/20/22 17:09 Freq: Status: Active Protocol: Document 12/21/22 09:08 AM (Rec: 12/21/22 13:37 AM [id number]) Physical Therapy Assessment Rehab Potential Rehabilitation Potential Excellent Evaluation Complexity Number of Personal Factors/Comorbidities 1-2 Number of Body Systems Impaired 1-2 Clinical Presentation at Evaluation Stable Impairments Impairments Activity Tolerance,Balance, Functional Activities, Functional Mobility,Gait,Pain, Posture,ROM,Soft Tissue Mobility,Strength Goals Pain Impairment Pain Impairment Pt reports pain at 5/10 at the worst Short Term Goal (STG) Pt with 3/10 knee pain at the worst. STG Duration 01/11/23 Insulation Manager Goal (LTG) Pt with 1/10 knee pain at the worst. LTG Duration 02/01/23 Strength Impairment Hip strength impairment Impairment Pt with 3+ to 4-/5 gross hip strength bilaterally. Short Term Goal (STG) Pt with grossly 4/5 strength at bilateral hips. STG Duration 01/11/23 Insulation Manager Goal (LTG) Pt with grossly 4+/5 strength at bilateral hips. LTG Duration 02/01/23 30 sec STS test Impairment LE strength impairment Impairment Pt able to complete 8 STS squats in 30 seconds. Short Term Goal (STG) Pt able to complete 12 STS squats in 30 seconds without knee valgus stress. STG Duration 01/11/23 Insulation Manager Goal (LTG) Pt able to complete 15 STS squats in 30 seconds without knee valgus stress. LTG Duration 02/01/23 Biking Impairment Pain with biking Impairment Pt able to bike 3-4 miles currently, though would like to be able to bike 20-25 miles without pain. Short Term Goal (STG) Pt able to bike 10 miles without increase in knee pain. STG Duration 01/11/23 Penitentiary Goal (LTG) Pt able to bike 20 miles without increase in knee pain. LTG Duration 02/01/23 Assessment Summary Assessment Isela Carrington presents to PT to address bilateral patellar knee pain. Pt demonstrates weakness at bilateral hips, demonstrating knee valgus and femoral MR with STS squats. Pt able to correct with cueing and higher surface height. Pt demonstrates tenderness at bilateral patellar tendons and has hypomobility at bilateral patellas. Pt demonstrates stiffness at R hip flexors in comparison to L, with reported hx of R hip pain as well. Pt would benefit from continued PT to progress LE functional strength and mobility to improve tolerance to functional and recreational activities. Physical Therapy Plan Frequency and Duration Frequency of Treatment 2x/Week Duration of treatment (weeks) 6 Plan of Care Start Date 12/21/22 Plan of Care End Date 02/01/23 Therapeutic Interventions Therapeutic Interventions Balance Training,Coordination Training,Gait Training,Home Exercise Program,Joint Mobilizations,Manual Therapy, Patient/Caregiver Education, Self-Care/Home Management,Soft Tissue Mobilization,Taping, Therapeutic Activities, Therapeutic Exercises Modalities Cold Pack/Ice Massage,Electric Stimulation,Hot Packs, Ultrasound Next Visit Focus/Plan Next Note Type Treatment Note Next Visit Plan Progress glute strengthening, progress LE flexibility, initiate manual techniques to improve patellar mobility Plan of Care Dates Plan of Care Start Date 12/21/22 Plan of Care End Date 02/01/23 Electronically Signed by: Orquidea Joseph, MAXIMINO 12/21/22 2384 If you are in agreement with this Plan of Care, please return a signed and dated copy. I have reviewed this Plan of Care and certify that the skilled therapy services above are required to meet the patient?s needs. Physician Signature Date Printed Name and Credentials Clinical Instructor Signature Printed Name and Credentials
--- NOTE | 2022-12-23 09:00 | PT.OTN ---
Current Diagnoses Pain in unspecified knee (12/23/22) Patellar tendinitis, unspecified knee (12/23/22) Physical Therapy Treatment Note PT-OP-A Visit Information Start: 12/20/22 17:09 Freq: Status: Active Protocol: Document 12/23/22 09:00 AM (Rec: 12/23/22 09:06 AM [id number]) Out-Patient Physical Therapy Visit Information Visit Information Visit Type Treatment Note Visit Start Time 09:01 Visit Stop Time 09:45 Total Visit Minutes 44 Visit Number 2 PT-OP-B Current Condition Start: 12/20/22 17:09 Freq: Status: Active Protocol: Document 12/23/22 09:00 AM (Rec: 12/23/22 09:06 AM [id number]) Current Condition History of Current Condition Onset Date 2 months ago Current Complaints Bilateral knee pain History of Current Condition Pt reports that she went on a long bike ride and her knees were sore following. Pt feels that her bike set-up might not be set up appropriately. She is going to get into a bike shop to have them assess her form. Pt reports that stopping and getting her feet to the ground is challenging to keep her balance. Pt reports that her knees her at bilateral patella. Pt reports that she converted her bike into an e- bike. PT-OP-C Subjective Start: 12/20/22 17:09 Freq: Status: Active Protocol: Document 12/23/22 09:00 AM (Rec: 12/23/22 09:06 AM [id number]) OP-PT Subjective Patient Comments Patient Comments Pt denies pain this morning, though reports that her knees feel tight. PT-OP-D Balance Start: 12/20/22 17:09 Freq: Status: Active Protocol: Document 12/21/22 09:08 AM (Rec: 12/21/22 13:37 AM [id number]) Balance Tests Single Limb Standing Single Limb- Right 20 Single Limb- Left 20 PT-OP-E Functional Tests Start: 12/20/22 17:09 Freq: Status: Active Protocol: Document 12/21/22 09:08 AM (Rec: 12/21/22 13:37 AM [id number]) Functional Tests 30 Second Sit to Stand Test Score 8 Comments knee valgus Five Times Sit to Stand Test Score 17 sec Comments valgus PT-OP-F Manual Assessment Start: 12/20/22 17:09 Freq: Status: Active Protocol: Document 12/21/22 09:08 AM (Rec: 12/21/22 13:37 AM [id number]) Manual Assessments Joint Mobility Assessment Joint Mobility Assessment Hypomobility at bilateral patella PT-OP-G Mobility & Gait Start: 12/20/22 17:09 Freq: Status: Active Protocol: Document 12/21/22 09:08 AM (Rec: 12/21/22 13:37 AM [id number]) OP Gait Assessment Gait Gait Assistance Required: Independent Assistive Devices Assistive Device None Gait Deviations General Gait Pattern Within Normal Limits PT-OP-J Posture/Palpation/Skin Start: 12/20/22 17:09 Freq: Status: Active Protocol: Document 12/21/22 09:08 AM (Rec: 12/21/22 13:37 AM [id number]) Posture Evaluation Position Standing Hip Posture (L) Internally Rotated,(R) Internally Rotated Knee Posture (L) Genu Valgus,(R) Genu Valgus Comments Posture Comments Knee valgus and hip MR with squat and STS transfer PT-OP-K Range of Motion Start: 12/20/22 17:09 Freq: Status: Active Protocol: Document 12/21/22 09:08 AM (Rec: 12/21/22 13:37 AM [id number]) Knee Goniometric Range of Motion Knee Right Knee ROM WFL Yes Patient Position Supine Flexion Active (degrees) 145 Extension Active (degrees) 3 Comments Hamstring 90/90: 33 Left Knee ROM WFL Yes Patient Position Supine Flexion Active (degrees) 145 Extension Active (degrees) 3 Comments Hamstring 90/90: 25 PT-OP-M Strength Start: 12/20/22 17:09 Freq: Status: Active Protocol: Document 12/21/22 09:08 AM (Rec: 12/21/22 13:37 AM [id number]) Hip Strength Hip Manual Muscle Testing Right Flexion (L2) 3+ Fair+ Abduction 3 Fair Adduction 5 Normal External Rotation 4- Good- Internal Rotation 4- Good- Left Flexion (L2) 3+ Fair+ Abduction 3+ Fair+ Adduction 5 Normal External Rotation 4- Good- Internal Rotation 4- Good- Knee Strength Knee Manual Muscle Testing Right Flexion (S2) 4 Good Extension (L3) 4+ Good+ Left Flexion (S2) 4 Good Extension (L3) 4+ Good+ PT-OP-Q Treatments Start: 12/20/22 17:09 Freq: Status: Active Protocol: Document 12/23/22 09:00 AM (Rec: 12/23/22 09:07 AM [id number]) Cardio Equipment Recumbent Bicycle Duration (Minutes) 6 Resistance 5 Seat Position 3 Therapeutic Exercises Standing Exercises resisted side step Side bilateral Resistance peach TB Equipment Used railing for support Reps/Minutes 2x20 ft Standing hip ext Side bilateral Resistance peach TB Reps/Minutes railing for support Standing hip abduction Side bilateral Resistance peach TB Equipment Used railing and band Reps/Minutes 2x10 Lunge hip flexor stretch Side bilateral Reps/Minutes x30 sec ea Chair squat Standing Exercise Name Chair squat Side bilateral Resistance Mcminn TB Equipment Used theraband at knees to decrease knee valgus Reps/Minutes 2x10 Comments At hi-low table, pt able to control knee valgus at higher surface height Manual Therapy Treatment Soft Tissue Mobilization Satish LE Body Location bilateral quads, ITB,adductors Mobilization Type Myofascial Release Intensity/Depth Moderate Body Position Supine Joint Mobilizations Patellar mob Joint patellar mob Direction inferior Grade II Body Position Supine Reps/Duration 2 min Manual Techniques Jose stretch Type Jose stretch Body Position Supine Reps/Duration 2x30 sec ea PT-OP-T Assessment and Plan Start: 12/20/22 17:09 Freq: Status: Active Protocol: Document 12/23/22 09:00 AM (Rec: 12/23/22 09:06 AM [id number]) Physical Therapy Assessment Impairments Impairments Activity Tolerance,Balance, Functional Activities, Functional Mobility,Gait,Pain, Posture,ROM,Soft Tissue Mobility,Strength Goals Pain Impairment Pain Impairment Pt reports pain at 5/10 at the worst Short Term Goal (STG) Pt with 3/10 knee pain at the worst. STG Duration 01/11/23 Air Carrier Inspector Goal (LTG) Pt with 1/10 knee pain at the worst. LTG Duration 02/01/23 Strength Impairment Hip strength impairment Impairment Pt with 3+ to 4-/5 gross hip strength bilaterally. Short Term Goal (STG) Pt with grossly 4/5 strength at bilateral hips. STG Duration 01/11/23 Air Carrier Inspector Goal (LTG) Pt with grossly 4+/5 strength at bilateral hips. LTG Duration 02/01/23 30 sec STS test Impairment LE strength impairment Impairment Pt able to complete 8 STS squats in 30 seconds. Short Term Goal (STG) Pt able to complete 12 STS squats in 30 seconds without knee valgus stress. STG Duration 01/11/23 Air Carrier Inspector Goal (LTG) Pt able to complete 15 STS squats in 30 seconds without knee valgus stress. LTG Duration 02/01/23 Biking Impairment Pain with biking Impairment Pt able to bike 3-4 miles currently, though would like to be able to bike 20-25 miles without pain. Short Term Goal (STG) Pt able to bike 10 miles without increase in knee pain. STG Duration 01/11/23 Air Carrier Inspector Goal (LTG) Pt able to bike 20 miles without increase in knee pain. LTG Duration 02/01/23 Assessment Summary Assessment Pt tolerated tx well without production of patellar symptoms. Pt demonstrates stiffness at bilateral quad with jose test stretch, with with R stiffer than L. Pt demonstrated fatigue of glutes with exercise. Pt with improving awareness and correction of knee valgus with STS squats. Physical Therapy Plan Frequency and Duration Frequency of Treatment 2x/Week Duration of treatment (weeks) 6 Plan of Care Start Date 12/21/22 Plan of Care End Date 02/01/23 Therapeutic Interventions Therapeutic Interventions Balance Training,Coordination Training,Gait Training,Home Exercise Program,Joint Mobilizations,Manual Therapy, Patient/Caregiver Education, Self-Care/Home Management,Soft Tissue Mobilization,Taping, Therapeutic Activities, Therapeutic Exercises Modalities Cold Pack/Ice Massage,Electric Stimulation,Hot Packs, Ultrasound Next Visit Focus/Plan Next Note Type Treatment Note Next Visit Plan Progress glute strengthening, progress LE flexibility, initiate manual techniques to improve patellar mobility
--- NOTE | 2022-12-27 09:48 | PT.OTN ---
Current Diagnoses Pain in unspecified knee (12/27/22) Patellar tendinitis, unspecified knee (12/27/22) Physical Therapy Treatment Note PT-OP-A Visit Information Start: 12/20/22 17:09 Freq: Status: Active Protocol: Document 12/27/22 09:48 AM (Rec: 12/27/22 11:55 AM [id number]) Out-Patient Physical Therapy Visit Information Visit Information Visit Type Treatment Note Visit Start Time 09:49 Visit Stop Time 10:34 Total Visit Minutes 45 Visit Number 3 Number of EAR NOSE THROAT SURGEON Visits 0 PT-OP-B Current Condition Start: 12/20/22 17:09 Freq: Status: Active Protocol: Document 12/27/22 09:48 AM (Rec: 12/27/22 11:55 AM [id number]) Current Condition History of Current Condition Onset Date 2 months ago Current Complaints Bilateral knee pain History of Current Condition Pt reports that she went on a long bike ride and her knees were sore following. Pt feels that her bike set-up might not be set up appropriately. She is going to get into a bike shop to have them assess her form. Pt reports that stopping and getting her feet to the ground is challenging to keep her balance. Pt reports that her knees her at bilateral patella. Pt reports that she converted her bike into an e- bike. PT-OP-C Subjective Start: 12/20/22 17:09 Freq: Status: Active Protocol: Document 12/27/22 09:48 AM (Rec: 12/27/22 11:55 AM [id number]) OP-PT Subjective Patient Comments Patient Comments Pt reports a little knee pain in the L knee joint today, though reports overall her knees are feeling better PT-OP-D Balance Start: 12/20/22 17:09 Freq: Status: Active Protocol: Document 12/21/22 09:08 AM (Rec: 12/21/22 13:37 AM [id number]) Balance Tests Single Limb Standing Single Limb- Right 20 Single Limb- Left 20 PT-OP-E Functional Tests Start: 12/20/22 17:09 Freq: Status: Active Protocol: Document 12/21/22 09:08 AM (Rec: 12/21/22 13:37 AM [id number]) Functional Tests 30 Second Sit to Stand Test Score 8 Comments knee valgus Five Times Sit to Stand Test Score 17 sec Comments valgus PT-OP-F Manual Assessment Start: 12/20/22 17:09 Freq: Status: Active Protocol: Document 12/21/22 09:08 AM (Rec: 12/21/22 13:37 AM [id number]) Manual Assessments Joint Mobility Assessment Joint Mobility Assessment Hypomobility at bilateral patella PT-OP-G Mobility & Gait Start: 12/20/22 17:09 Freq: Status: Active Protocol: Document 12/21/22 09:08 AM (Rec: 12/21/22 13:37 AM [id number]) OP Gait Assessment Gait Gait Assistance Required: Independent Assistive Devices Assistive Device None Gait Deviations General Gait Pattern Within Normal Limits PT-OP-J Posture/Palpation/Skin Start: 12/20/22 17:09 Freq: Status: Active Protocol: Document 12/21/22 09:08 AM (Rec: 12/21/22 13:37 AM [id number]) Posture Evaluation Position Standing Hip Posture (L) Internally Rotated,(R) Internally Rotated Knee Posture (L) Genu Valgus,(R) Genu Valgus Comments Posture Comments Knee valgus and hip MR with squat and STS transfer PT-OP-K Range of Motion Start: 12/20/22 17:09 Freq: Status: Active Protocol: Document 12/21/22 09:08 AM (Rec: 12/21/22 13:37 AM [id number]) Knee Goniometric Range of Motion Knee Right Knee ROM WFL Yes Patient Position Supine Flexion Active (degrees) 145 Extension Active (degrees) 3 Comments Hamstring 90/90: 33 Left Knee ROM WFL Yes Patient Position Supine Flexion Active (degrees) 145 Extension Active (degrees) 3 Comments Hamstring 90/90: 25 PT-OP-M Strength Start: 12/20/22 17:09 Freq: Status: Active Protocol: Document 12/21/22 09:08 AM (Rec: 12/21/22 13:37 AM [id number]) Hip Strength Hip Manual Muscle Testing Right Flexion (L2) 3+ Fair+ Abduction 3 Fair Adduction 5 Normal External Rotation 4- Good- Internal Rotation 4- Good- Left Flexion (L2) 3+ Fair+ Abduction 3+ Fair+ Adduction 5 Normal External Rotation 4- Good- Internal Rotation 4- Good- Knee Strength Knee Manual Muscle Testing Right Flexion (S2) 4 Good Extension (L3) 4+ Good+ Left Flexion (S2) 4 Good Extension (L3) 4+ Good+ PT-OP-Q Treatments Start: 12/20/22 17:09 Freq: Status: Active Protocol: Document 12/27/22 09:48 AM (Rec: 12/27/22 11:55 AM [id number]) Cardio Equipment Bicycle (Upright) Duration (Minutes) 5 Resistance 7 Seat Position 3 Gym Equipment Shuttle Recovery Leg press Details Leg press Resistance 75# for satish LE, 50# for Unilateral knee Reps/Time x1 min Satish, 30 sec unilateral Therapeutic Exercises Sidelying Exercises Clamshells Sidelying Exercise Name Clamshell Side bilateral Reps/Minutes x20 Standing Exercises resisted side step Side bilateral Resistance peach TB Equipment Used railing for support Reps/Minutes 2x20 ft Standing hip ext Side bilateral Resistance peach TB Equipment Used railing for support Reps/Minutes 2x10 Standing hip abduction Side bilateral Resistance peach TB Equipment Used railing and band Reps/Minutes 2x10 Manual Therapy Treatment Soft Tissue Mobilization Satish LE Body Location bilateral quads, ITB,adductors Mobilization Type Myofascial Release Intensity/Depth Moderate Body Position Supine Joint Mobilizations Patellar mob Joint patellar mob Direction inferior Grade II Body Position Supine Reps/Duration 2 min Manual Techniques Jose stretch Type Jose stretch Body Position Supine Reps/Duration 2x30 sec ea PT-OP-T Assessment and Plan Start: 12/20/22 17:09 Freq: Status: Active Protocol: Document 12/27/22 09:48 AM (Rec: 12/27/22 11:55 AM [id number]) Physical Therapy Assessment Impairments Impairments Activity Tolerance,Balance, Functional Activities, Functional Mobility,Gait,Pain, Posture,ROM,Soft Tissue Mobility,Strength Goals Pain Impairment Pain Impairment Pt reports pain at 5/10 at the worst Short Term Goal (STG) Pt with 3/10 knee pain at the worst. STG Duration 01/11/23 Beef Boner Goal (LTG) Pt with 1/10 knee pain at the worst. LTG Duration 02/01/23 Strength Impairment Hip strength impairment Impairment Pt with 3+ to 4-/5 gross hip strength bilaterally. Short Term Goal (STG) Pt with grossly 4/5 strength at bilateral hips. STG Duration 01/11/23 Beef Boner Goal (LTG) Pt with grossly 4+/5 strength at bilateral hips. LTG Duration 02/01/23 30 sec STS test Impairment LE strength impairment Impairment Pt able to complete 8 STS squats in 30 seconds. Short Term Goal (STG) Pt able to complete 12 STS squats in 30 seconds without knee valgus stress. STG Duration 01/11/23 Beef Boner Goal (LTG) Pt able to complete 15 STS squats in 30 seconds without knee valgus stress. LTG Duration 02/01/23 Biking Impairment Pain with biking Impairment Pt able to bike 3-4 miles currently, though would like to be able to bike 20-25 miles without pain. Short Term Goal (STG) Pt able to bike 10 miles without increase in knee pain. STG Duration 01/11/23 Usp Goal (LTG) Pt able to bike 20 miles without increase in knee pain. LTG Duration 02/01/23 Assessment Summary Assessment Pt with good tolerance with exercises today. Pt demonstrates continued stiffness at bilateral quads with manual stretching. Pt with fatigue with unilateral leg press. Pt would benefit from continued PT to progress satish LE strength and mobility to improve tolerance to functional tasks. Physical Therapy Plan Frequency and Duration Frequency of Treatment 2x/Week Duration of treatment (weeks) 6 Plan of Care Start Date 12/21/22 Plan of Care End Date 02/01/23 Therapeutic Interventions Therapeutic Interventions Balance Training,Coordination Training,Gait Training,Home Exercise Program,Joint Mobilizations,Manual Therapy, Patient/Caregiver Education, Self-Care/Home Management,Soft Tissue Mobilization,Taping, Therapeutic Activities, Therapeutic Exercises Modalities Cold Pack/Ice Massage,Electric Stimulation,Hot Packs, Ultrasound Next Visit Focus/Plan Next Note Type Treatment Note Next Visit Plan Progress glute strengthening, progress LE flexibility, continue focus on LE mechanics to decrease knee valgus stress with CKC
--- NOTE | 2023-01-03 11:13 | PT.OTN ---
Current Diagnoses Pain in unspecified knee (01/03/23) Patellar tendinitis, unspecified knee (01/03/23) Physical Therapy Treatment Note PT-OP-A Visit Information Start: 12/20/22 17:09 Freq: Status: Active Protocol: Document 01/03/23 10:18 NBM (Rec: 01/03/23 11:11 [facility] [id number]) Out-Patient Physical Therapy Visit Information Visit Information Visit Type Treatment Note Visit Start Time 10:17 Visit Stop Time 11:02 Total Visit Minutes 45 Visit Number 4 Number of HOUSEKEEPING COORDINATOR Visits 1 PT-OP-B Current Condition Start: 12/20/22 17:09 Freq: Status: Active Protocol: Document 12/27/22 09:48 AM (Rec: 12/27/22 11:55 AM [id number]) Current Condition History of Current Condition Onset Date 2 months ago Current Complaints Bilateral knee pain History of Current Condition Pt reports that she went on a long bike ride and her knees were sore following. Pt feels that her bike set-up might not be set up appropriately. She is going to get into a bike shop to have them assess her form. Pt reports that stopping and getting her feet to the ground is challenging to keep her balance. Pt reports that her knees her at bilateral patella. Pt reports that she converted her bike into an e- bike. PT-OP-C Subjective Start: 12/20/22 17:09 Freq: Status: Active Protocol: Document 01/03/23 10:18 NBM (Rec: 01/03/23 11:11 [facility] [id number]) OP-PT Subjective Patient Comments Patient Comments Isela reports her knees are feeling good today and her home ex's are going well. She is incorporating previous PT ex's as well. She dropped her e-bike off today and will get it fitted. She usually keeps assist off but when I'm with Manuel I gotta do everything I can to keep up with him. She forgets about the hip flexor stretch PT-OP-D Balance Start: 12/20/22 17:09 Freq: Status: Active Protocol: Document 12/21/22 09:08 AM (Rec: 12/21/22 13:37 AM [id number]) Balance Tests Single Limb Standing Single Limb- Right 20 Single Limb- Left 20 PT-OP-E Functional Tests Start: 12/20/22 17:09 Freq: Status: Active Protocol: Document 12/21/22 09:08 AM (Rec: 12/21/22 13:37 AM [id number]) Functional Tests 30 Second Sit to Stand Test Score 8 Comments knee valgus Five Times Sit to Stand Test Score 17 sec Comments valgus PT-OP-F Manual Assessment Start: 12/20/22 17:09 Freq: Status: Active Protocol: Document 12/21/22 09:08 AM (Rec: 12/21/22 13:37 AM [id number]) Manual Assessments Joint Mobility Assessment Joint Mobility Assessment Hypomobility at bilateral patella PT-OP-G Mobility & Gait Start: 12/20/22 17:09 Freq: Status: Active Protocol: Document 12/21/22 09:08 AM (Rec: 12/21/22 13:37 AM [id number]) OP Gait Assessment Gait Gait Assistance Required: Independent Assistive Devices Assistive Device None Gait Deviations General Gait Pattern Within Normal Limits PT-OP-J Posture/Palpation/Skin Start: 12/20/22 17:09 Freq: Status: Active Protocol: Document 12/21/22 09:08 AM (Rec: 12/21/22 13:37 AM [id number]) Posture Evaluation Position Standing Hip Posture (L) Internally Rotated,(R) Internally Rotated Knee Posture (L) Genu Valgus,(R) Genu Valgus Comments Posture Comments Knee valgus and hip MR with squat and STS transfer PT-OP-K Range of Motion Start: 12/20/22 17:09 Freq: Status: Active Protocol: Document 12/21/22 09:08 AM (Rec: 12/21/22 13:37 AM [id number]) Knee Goniometric Range of Motion Knee Right Knee ROM WFL Yes Patient Position Supine Flexion Active (degrees) 145 Extension Active (degrees) 3 Comments Hamstring 90/90: 33 Left Knee ROM WFL Yes Patient Position Supine Flexion Active (degrees) 145 Extension Active (degrees) 3 Comments Hamstring 90/90: 25 PT-OP-M Strength Start: 12/20/22 17:09 Freq: Status: Active Protocol: Document 12/21/22 09:08 AM (Rec: 12/21/22 13:37 AM [id number]) Hip Strength Hip Manual Muscle Testing Right Flexion (L2) 3+ Fair+ Abduction 3 Fair Adduction 5 Normal External Rotation 4- Good- Internal Rotation 4- Good- Left Flexion (L2) 3+ Fair+ Abduction 3+ Fair+ Adduction 5 Normal External Rotation 4- Good- Internal Rotation 4- Good- Knee Strength Knee Manual Muscle Testing Right Flexion (S2) 4 Good Extension (L3) 4+ Good+ Left Flexion (S2) 4 Good Extension (L3) 4+ Good+ PT-OP-Q Treatments Start: 12/20/22 17:09 Freq: Status: Active Protocol: Document 01/03/23 10:18 NBM (Rec: 01/03/23 11:11 NBM [id number]) Cardio Equipment Bicycle (Upright) Duration (Minutes) 8 Resistance 7 Seat Position 3 Gym Equipment Shuttle Recovery Leg press Details Leg press Resistance 75# for satish LE, 50# for Unilateral knee Reps/Time Bx8, x10 w/ball; x15 unilateral ea Therapeutic Exercises Sitting Exercises Clamshells Sitting Exercise Name seated hip abduction Side bilateral Resistance Lvl 1 Tb Cannon Equipment Used chair Reps/Minutes 2x10 Comments cues for eccentric control Standing Exercises resisted side step Standing Exercise Name HEP review Side bilateral Resistance peach TB Equipment Used railing for support Reps/Minutes x20 ft Standing hip ext Standing Exercise Name HEP review Side bilateral Resistance peach TB Equipment Used railing for support Reps/Minutes 2x10 Comments cues for upright posture Standing hip abduction Standing Exercise Name HEP review Side bilateral Resistance peach TB Equipment Used railing and band Reps/Minutes x10 ea Comments cues for upright posture, eccentric control Lunge hip flexor stretch Side bilateral Reps/Minutes x30 sec ea Comments cues for form Chair squat Standing Exercise Name Chair squat Side bilateral Resistance Cannon TB Equipment Used theraband at knees to decrease knee valgus Reps/Minutes 2x10 Comments standard mesh chair Manual Therapy Treatment Soft Tissue Mobilization Satish LE Body Location bilateral quads, ITB,adductors Mobilization Type Instrument Assisted,Myofascial Release Intensity/Depth Moderate Body Position Supine Comments rolling pin Self-Care/Home Management Treatment Education Patient Education Home Exercise Program Other Education I/s pt in self-STM w/ rolling pin to quads - HO given w/ reminder to do standing hip flexor stretch. PT-OP-T Assessment and Plan Start: 12/20/22 17:09 Freq: Status: Active Protocol: Document 01/03/23 10:18 NBM (Rec: 01/03/23 11:11 [facility] [id number]) Physical Therapy Assessment Goals Pain Impairment Pain Impairment Pt reports pain at 5/10 at the worst Short Term Goal (STG) Pt with 3/10 knee pain at the worst. STG Duration 01/11/23 Intermediate Goal (LTG) Pt with 1/10 knee pain at the worst. LTG Duration 02/01/23 Strength Impairment Hip strength impairment Impairment Pt with 3+ to 4-/5 gross hip strength bilaterally. Short Term Goal (STG) Pt with grossly 4/5 strength at bilateral hips. STG Duration 01/11/23 Patent Lawyer Goal (LTG) Pt with grossly 4+/5 strength at bilateral hips. LTG Duration 02/01/23 30 sec STS test Impairment LE strength impairment Impairment Pt able to complete 8 STS squats in 30 seconds. Short Term Goal (STG) Pt able to complete 12 STS squats in 30 seconds without knee valgus stress. STG Duration 01/11/23 Intermediate Goal (LTG) Pt able to complete 15 STS squats in 30 seconds without knee valgus stress. LTG Duration 02/01/23 Biking Impairment Pain with biking Impairment Pt able to bike 3-4 miles currently, though would like to be able to bike 20-25 miles without pain. Short Term Goal (STG) Pt able to bike 10 miles without increase in knee pain. STG Duration 01/11/23 Intermediate Goal (LTG) Pt able to bike 20 miles without increase in knee pain. LTG Duration 02/01/23 Assessment Summary Assessment Isela requires initial cues for LE alignment with chair squats and supine leg press; her self-awareness improves with cueing and repetition. She requires cues with standing resisted hip abduction for upright posture and eccentric control. Palpable tightness to quads R> L improves with manual therapy . Instructed pt in self-STM w/ rolling pin to quads - HO given w/ reminder to do standing hip flexor stretch. Physical Therapy Plan Frequency and Duration Frequency of Treatment 2x/Week Duration of treatment (weeks) 6 Plan of Care Start Date 12/21/22 Plan of Care End Date 02/01/23 Therapeutic Interventions Therapeutic Interventions Balance Training,Coordination Training,Gait Training,Home Exercise Program,Joint Mobilizations,Manual Therapy, Patient/Caregiver Education, Self-Care/Home Management,Soft Tissue Mobilization,Taping, Therapeutic Activities, Therapeutic Exercises Modalities Cold Pack/Ice Massage,Electric Stimulation,Hot Packs, Ultrasound Next Visit Focus/Plan Next Note Type Treatment Note Next Visit Plan Can assess self-STM w/ rolling pin; bridging from personal HEP and if pt had bike fitting . Continue POC. POC: Progress glute strengthening, progress LE flexibility, continue focus on LE mechanics to decrease knee valgus stress with CKC
--- NOTE | 2023-01-06 11:22 | PT.OTN ---
Current Diagnoses Pain in unspecified knee (01/06/23) Patellar tendinitis, unspecified knee (01/06/23) Physical Therapy Treatment Note PT-OP-A Visit Information Start: 12/20/22 17:09 Freq: Status: Active Protocol: Document 01/06/23 09:29 NBM (Rec: 01/06/23 10:17 [facility] [id number]) Out-Patient Physical Therapy Visit Information Visit Information Visit Type Treatment Note Visit Note Pt late Visit Start Time 09:35 Visit Stop Time 10:16 Total Visit Minutes 41 Visit Number 5 Number of COMMUNICATION MANAGER Visits 2 PT-OP-B Current Condition Start: 12/20/22 17:09 Freq: Status: Active Protocol: Document 12/27/22 09:48 AM (Rec: 12/27/22 11:55 AM [id number]) Current Condition History of Current Condition Onset Date 2 months ago Current Complaints Bilateral knee pain History of Current Condition Pt reports that she went on a long bike ride and her knees were sore following. Pt feels that her bike set-up might not be set up appropriately. She is going to get into a bike shop to have them assess her form. Pt reports that stopping and getting her feet to the ground is challenging to keep her balance. Pt reports that her knees her at bilateral patella. Pt reports that she converted her bike into an e- bike. PT-OP-C Subjective Start: 12/20/22 17:09 Freq: Status: Active Protocol: Document 01/06/23 09:29 NB (Rec: 01/06/23 10:17 [facility] [id number]) OP-PT Subjective Patient Comments Patient Comments Isela reports she's doing well and felt great after her last visit. She got the bike fitting done and it feels much better, but she's only done a short ride so far which felt good. She did her hip flexor stretch over the weekend. PT-OP-D Balance Start: 12/20/22 17:09 Freq: Status: Active Protocol: Document 12/21/22 09:08 AM (Rec: 12/21/22 13:37 AM [id number]) Balance Tests Single Limb Standing Single Limb- Right 20 Single Limb- Left 20 PT-OP-E Functional Tests Start: 12/20/22 17:09 Freq: Status: Active Protocol: Document 12/21/22 09:08 AM (Rec: 12/21/22 13:37 AM [id number]) Functional Tests 30 Second Sit to Stand Test Score 8 Comments knee valgus Five Times Sit to Stand Test Score 17 sec Comments valgus PT-OP-F Manual Assessment Start: 12/20/22 17:09 Freq: Status: Active Protocol: Document 12/21/22 09:08 AM (Rec: 12/21/22 13:37 AM [id number]) Manual Assessments Joint Mobility Assessment Joint Mobility Assessment Hypomobility at bilateral patella PT-OP-G Mobility & Gait Start: 12/20/22 17:09 Freq: Status: Active Protocol: Document 12/21/22 09:08 AM (Rec: 12/21/22 13:37 AM [id number]) OP Gait Assessment Gait Gait Assistance Required: Independent Assistive Devices Assistive Device None Gait Deviations General Gait Pattern Within Normal Limits PT-OP-J Posture/Palpation/Skin Start: 12/20/22 17:09 Freq: Status: Active Protocol: Document 12/21/22 09:08 AM (Rec: 12/21/22 13:37 AM [id number]) Posture Evaluation Position Standing Hip Posture (L) Internally Rotated,(R) Internally Rotated Knee Posture (L) Genu Valgus,(R) Genu Valgus Comments Posture Comments Knee valgus and hip MR with squat and STS transfer PT-OP-K Range of Motion Start: 12/20/22 17:09 Freq: Status: Active Protocol: Document 12/21/22 09:08 AM (Rec: 12/21/22 13:37 AM [id number]) Knee Goniometric Range of Motion Knee Right Knee ROM WFL Yes Patient Position Supine Flexion Active (degrees) 145 Extension Active (degrees) 3 Comments Hamstring 90/90: 33 Left Knee ROM WFL Yes Patient Position Supine Flexion Active (degrees) 145 Extension Active (degrees) 3 Comments Hamstring 90/90: 25 PT-OP-M Strength Start: 12/20/22 17:09 Freq: Status: Active Protocol: Document 12/21/22 09:08 AM (Rec: 12/21/22 13:37 AM [id number]) Hip Strength Hip Manual Muscle Testing Right Flexion (L2) 3+ Fair+ Abduction 3 Fair Adduction 5 Normal External Rotation 4- Good- Internal Rotation 4- Good- Left Flexion (L2) 3+ Fair+ Abduction 3+ Fair+ Adduction 5 Normal External Rotation 4- Good- Internal Rotation 4- Good- Knee Strength Knee Manual Muscle Testing Right Flexion (S2) 4 Good Extension (L3) 4+ Good+ Left Flexion (S2) 4 Good Extension (L3) 4+ Good+ PT-OP-Q Treatments Start: 12/20/22 17:09 Freq: Status: Active Protocol: Document 01/06/23 09:29 [facility] (Rec: 01/06/23 10:17 [facility] [id number]) Cardio Equipment Bicycle (Upright) Duration (Minutes) 5 Resistance 7 Seat Position 3 Gym Equipment Shuttle Recovery Leg press Details Leg press Resistance 75# for satish LE, 50# for Unilateral knee Shuttle Recovery Platform Stable Reps/Time x15 w/ball, discomfort in tops of knees; x15 unilateral ea Therapeutic Exercises Supine Exercises Bridging Supine Exercise Name w/ and w/o ball squeeze Side bilateral Equipment Used blue/white ball Reps/Minutes 2x10 Comments vc breathwork Sitting Exercises Clamshells Sitting Exercise Name seated hip abduction Side bilateral Resistance Lvl 1 Tb Emmet Equipment Used chair Reps/Minutes x10 Comments cues for eccentric control Standing Exercises Lunge hip flexor stretch Side bilateral Reps/Minutes x30 sec ea Comments cues for form Chair squat Standing Exercise Name Chair squat>chair taps Side bilateral Resistance Emmet TB Equipment Used theraband at knees to decrease knee valgus Reps/Minutes x5 ea Comments standard mesh chair, vc eccentric control Manual Therapy Treatment Soft Tissue Mobilization Satish LE Body Location bilateral quads, ITB,adductors Mobilization Type Instrument Assisted,Myofascial Release Intensity/Depth Moderate Body Position Supine Comments rolling pin Joint Mobilizations Patellar mob Joint patellar mob B Direction inferior Grade II Body Position Supine Reps/Duration 2 min Manual Techniques Jose stretch Type Jose stretch Body Position Supine Reps/Duration 2x30 sec ea Self-Care/Home Management Treatment Education Patient Education Home Exercise Program Other Education Added to HEP: Bridging w/ ball squeeze and self-STM w/ rolling pin - HO given. PT-OP-T Assessment and Plan Start: 12/20/22 17:09 Freq: Status: Active Protocol: Document 01/06/23 09:29 [facility] (Rec: 01/06/23 10:17 [facility] [id number]) Physical Therapy Assessment Goals Pain Impairment Pain Impairment Pt reports pain at 5/10 at the worst Short Term Goal (STG) Pt with 3/10 knee pain at the worst. STG Duration 01/11/23 [employer] Goal (LTG) Pt with 1/10 knee pain at the worst. LTG Duration 02/01/23 Strength Impairment Hip strength impairment Impairment Pt with 3+ to 4-/5 gross hip strength bilaterally. Short Term Goal (STG) Pt with grossly 4/5 strength at bilateral hips. STG Duration 01/11/23 [facility] Goal (LTG) Pt with grossly 4+/5 strength at bilateral hips. LTG Duration 02/01/23 30 sec STS test Impairment LE strength impairment Impairment Pt able to complete 8 STS squats in 30 seconds. Short Term Goal (STG) Pt able to complete 12 STS squats in 30 seconds without knee valgus stress. STG Duration 01/11/23 [employer] T[employer] Goal (LTG) Pt able to complete 15 STS squats in 30 seconds without knee valgus stress. LTG Duration 02/01/23 Biking Impairment Pain with biking Impairment Pt able to bike 3-4 miles currently, though would like to be able to bike 20-25 miles without pain. Short Term Goal (STG) Pt able to bike 10 miles without increase in knee pain. STG Duration 01/11/23 [facility] Goal (LTG) Pt able to bike 20 miles without increase in knee pain. LTG Duration 02/01/23 Assessment Summary Assessment Treatment focus on LE mechanics to decrease knee valgus stress with CKC and glute strengthening. Isela requires cues for slower pacing throughout today's session. LE alignment improves w/ Lvl 1 Tb above knees during chair squats. She needs cues for breathwork w/ bridging but self-awareness improves w/ repetition and cueing. She requires initial cues for standing hip flexor stretch then shows improved form w/ repetition. Added to HEP: Bridging w/ ball squeeze and self-STM w/ rolling pin - HO given. Physical Therapy Plan Frequency and Duration Frequency of Treatment 2x/Week Duration of treatment (weeks) 6 Plan of Care Start Date 12/21/22 Plan of Care End Date 02/01/23 Therapeutic Interventions Therapeutic Interventions Balance Training,Coordination Training,Gait Training,Home Exercise Program,Joint Mobilizations,Manual Therapy, Patient/Caregiver Education, Self-Care/Home Management,Soft Tissue Mobilization,Taping, Therapeutic Activities, Therapeutic Exercises Modalities Cold Pack/Ice Massage,Electric Stimulation,Hot Packs, Ultrasound Next Visit Focus/Plan Next Note Type Treatment Note Next Visit Plan Assess if pt had bike fitting and self-STM w/ rolling pin. Continue POC. POC: Progress glute strengthening, progress LE flexibility, continue focus on LE mechanics to decrease knee valgus stress with CKC
--- NOTE | 2023-01-24 10:39 | PT.OTN ---
Current Diagnoses Pain in unspecified knee (02/10/23) Patellar tendinitis, unspecified knee (02/10/23) Physical Therapy Treatment Note PT-OP-A Visit Information Start: 12/20/22 17:09 Freq: Status: Active Protocol: Document 02/10/23 09:04 AM (Rec: 02/10/23 17:09 AM [id number]) Out-Patient Physical Therapy Visit Information Visit Information Visit Type Discharge Summary Visit Start Time 09:04 Visit Stop Time 09:47 Total Visit Minutes 43 Visit Number 9 Number of BAR STAFF Visits 2 PT-OP-B Current Condition Start: 12/20/22 17:09 Freq: Status: Active Protocol: Document 12/27/22 09:48 AM (Rec: 12/27/22 11:55 AM [id number]) Current Condition History of Current Condition Onset Date 2 months ago Current Complaints Bilateral knee pain History of Current Condition Pt reports that she went on a long bike ride and her knees were sore following. Pt feels that her bike set-up might not be set up appropriately. She is going to get into a bike shop to have them assess her form. Pt reports that stopping and getting her feet to the ground is challenging to keep her balance. Pt reports that her knees her at bilateral patella. Pt reports that she converted her bike into an e- bike. PT-OP-C Subjective Start: 12/20/22 17:09 Freq: Status: Active Protocol: Document 02/10/23 09:04 AM (Rec: 02/10/23 17:09 AM [id number]) OP-PT Subjective Patient Comments Patient Comments Pt reports that her knees and hip have been feeling better. Pt agreeable to d/c today. Pt reports that she goes to the gym 2-3x/week and has been biking as well. PT-OP-D Balance Start: 12/20/22 17:09 Freq: Status: Active Protocol: Document 12/21/22 09:08 AM (Rec: 12/21/22 13:37 AM [id number]) Balance Tests Single Limb Standing Single Limb- Right 20 Single Limb- Left 20 PT-OP-E Functional Tests Start: 12/20/22 17:09 Freq: Status: Active Protocol: Document 12/21/22 09:08 AM (Rec: 12/21/22 13:37 AM [id number]) Functional Tests 30 Second Sit to Stand Test Score 8 Comments knee valgus Five Times Sit to Stand Test Score 17 sec Comments valgus PT-OP-F Manual Assessment Start: 12/20/22 17:09 Freq: Status: Active Protocol: Document 12/21/22 09:08 AM (Rec: 12/21/22 13:37 AM [id number]) Manual Assessments Joint Mobility Assessment Joint Mobility Assessment Hypomobility at bilateral patella PT-OP-G Mobility & Gait Start: 12/20/22 17:09 Freq: Status: Active Protocol: Document 12/21/22 09:08 AM (Rec: 12/21/22 13:37 AM [id number]) OP Gait Assessment Gait Gait Assistance Required: Independent Assistive Devices Assistive Device None Gait Deviations General Gait Pattern Within Normal Limits PT-OP-J Posture/Palpation/Skin Start: 12/20/22 17:09 Freq: Status: Active Protocol: Document 12/21/22 09:08 AM (Rec: 12/21/22 13:37 AM [id number]) Posture Evaluation Position Standing Hip Posture (L) Internally Rotated,(R) Internally Rotated Knee Posture (L) Genu Valgus,(R) Genu Valgus Comments Posture Comments Knee valgus and hip MR with squat and STS transfer PT-OP-K Range of Motion Start: 12/20/22 17:09 Freq: Status: Active Protocol: Document 12/21/22 09:08 AM (Rec: 12/21/22 13:37 AM [id number]) Knee Goniometric Range of Motion Knee Right Knee ROM WFL Yes Patient Position Supine Flexion Active (degrees) 145 Extension Active (degrees) 3 Comments Hamstring 90/90: 33 Left Knee ROM WFL Yes Patient Position Supine Flexion Active (degrees) 145 Extension Active (degrees) 3 Comments Hamstring 90/90: 25 PT-OP-M Strength Start: 12/20/22 17:09 Freq: Status: Active Protocol: Document 12/21/22 09:08 AM (Rec: 12/21/22 13:37 AM [id number]) Hip Strength Hip Manual Muscle Testing Right Flexion (L2) 3+ Fair+ Abduction 3 Fair Adduction 5 Normal External Rotation 4- Good- Internal Rotation 4- Good- Left Flexion (L2) 3+ Fair+ Abduction 3+ Fair+ Adduction 5 Normal External Rotation 4- Good- Internal Rotation 4- Good- Knee Strength Knee Manual Muscle Testing Right Flexion (S2) 4 Good Extension (L3) 4+ Good+ Left Flexion (S2) 4 Good Extension (L3) 4+ Good+ PT-OP-Q Treatments Start: 12/20/22 17:09 Freq: Status: Active Protocol: Document 02/10/23 09:04 AM (Rec: 02/10/23 17:09 AM [id number]) Therapeutic Exercises Supine Exercises piriformis stretch Supine Exercise Name knee to opp shoulder Side bilateral Reps/Minutes x30s ea Sitting Exercises Clamshells Reps/Minutes x10 ea Comments cues for lumbopelvic stab Standing Exercises resisted side step Standing Exercise Name HEP review Side bilateral Resistance Lvl 2 OTB Equipment Used railing for support Reps/Minutes x10 ft ea Standing hip ext Standing Exercise Name HEP review Side bilateral Resistance Lvl 2 OTB ankles Equipment Used railing for support Reps/Minutes x10 ea Comments lateral lean Standing hip abduction Standing Exercise Name HEP review Side bilateral Resistance Lvl 2 OTB ankles Equipment Used railing Reps/Minutes x10 ea Comments lateral lean Lunge hip flexor stretch Side bilateral Reps/Minutes x30 sec ea Comments kneeling vs standing, knee on blue cushion, HEP PT-OP-T Assessment and Plan Start: 12/20/22 17:09 Freq: Status: Active Protocol: Document 02/10/23 09:04 AM (Rec: 02/10/23 17:09 AM [id number]) Physical Therapy Assessment Goals Pain Impairment Pain Impairment Pt reports pain at 5/10 at the worst Short Term Goal (STG) Pt with 3/10 knee pain at the worst. 01/24/23: Pt reports pain at 4/ 10 at the worst. STG Duration 01/11/23 [facility] Goal (LTG) Pt with 1/10 knee pain at the worst. 02/10/23: Goal met, Pt reports pain at 1-2/10. LTG Duration 02/11/23-achieved Strength Impairment Hip strength impairment Impairment Pt with 3+ to 4-/5 gross hip strength bilaterally. Short Term Goal (STG) Pt with grossly 4/5 strength at bilateral hips. STG Duration 01/11/23 [employer] Goal (LTG) Pt with grossly 4+/5 strength at bilateral hips. LTG Duration 02/11/23-achieved 30 sec STS test Impairment LE strength impairment Impairment Pt able to complete 8 STS squats in 30 seconds. Short Term Goal (STG) Pt able to complete 12 STS squats in 30 seconds without knee valgus stress. 01/24/23: Progressin STS squats with min valgus stress at end when fatigued. STG Duration 01/11/23 [employer] Goal (LTG) Pt able to complete 15 STS squats in 30 seconds without knee valgus stress. 02/10/23: Pt progressing towards goal, though unmet. Pt able to do 12 STS Squats in 30 seconds. LTG Duration 02/11/23-achieved Biking Impairment Pain with biking Impairment Pt able to bike 3-4 miles currently, though would like to be able to bike 20-25 miles without pain. Short Term Goal (STG) Pt able to bike 10 miles without increase in knee pain. 01/24/23: Progressing. Pt reports that she was able to bike about 5 miles. She has not been biking recently secondary to recent vacation. 02/07: Pt reports she's getting there but has to be active daily or else loses it all. 5 miles on Monday and pt's pain was 4/10 at worst. STG Duration 01/11/23 [facility] Goal (LTG) Pt able to bike 20 miles without increase in knee pain. 02/10/23: Pt reports that she feels that she could probably bike 20 miles, though has not had the opportunity recently. Pt has been biking about 9 miles recently. LTG Duration 02/11/23-partially met Progress Towards Goals Progress Towards Goals Goals Met Assessment Summary Assessment Pt agreeable to d/c today. Pt with overall reduction in symptoms and demonstrates good understanding of HEP. Pt met all STG. Pt encouraged to contact PT if she has future questions/concerns regarding HEP. Physical Therapy Plan Frequency and Duration Frequency of Treatment 2x/Week Duration of treatment (weeks) 7 Plan of Care Start Date 12/21/22 Plan of Care End Date 02/11/23 Therapeutic Interventions Therapeutic Interventions Balance Training,Coordination Training,Gait Training,Home Exercise Program,Joint Mobilizations,Manual Therapy, Patient/Caregiver Education, Self-Care/Home Management,Soft Tissue Mobilization,Taping, Therapeutic Activities, Therapeutic Exercises Modalities Cold Pack/Ice Massage,Electric Stimulation,Hot Packs, Ultrasound Discharge Physical Therapy Discharge Reasons Goals Met Discharge Comments Pt d/c with goals being met. Pt d/c with HEP Next Visit Focus/Plan Next Note Type Treatment Note
--- NOTE | 2023-01-24 10:39 | PT.OTN ---
Current Diagnoses Pain in unspecified knee (01/24/23) Patellar tendinitis, unspecified knee (01/24/23) Physical Therapy Treatment Note PT-OP-A Visit Information Start: 12/20/22 17:09 Freq: Status: Active Protocol: Document 01/24/23 10:39 AM (Rec: 01/24/23 11:45 AM [id number]) Out-Patient Physical Therapy Visit Information Visit Information Visit Type Treatment Note Visit Start Time 09:39 Visit Stop Time 10:21 Total Visit Minutes 42 Visit Number 6 Number of ARABIC LINGUIST Visits 2 PT-OP-B Current Condition Start: 12/20/22 17:09 Freq: Status: Active Protocol: Document 12/27/22 09:48 AM (Rec: 12/27/22 11:55 AM [id number]) Current Condition History of Current Condition Onset Date 2 months ago Current Complaints Bilateral knee pain History of Current Condition Pt reports that she went on a long bike ride and her knees were sore following. Pt feels that her bike set-up might not be set up appropriately. She is going to get into a bike shop to have them assess her form. Pt reports that stopping and getting her feet to the ground is challenging to keep her balance. Pt reports that her knees her at bilateral patella. Pt reports that she converted her bike into an e- bike. PT-OP-C Subjective Start: 12/20/22 17:09 Freq: Status: Active Protocol: Document 01/24/23 10:39 AM (Rec: 01/24/23 11:45 AM [id number]) OP-PT Subjective Patient Comments Patient Comments Pt reports that her R hip and knee has been cranky. Pt reports that she has been traveling and not in a normal routine. PT-OP-D Balance Start: 12/20/22 17:09 Freq: Status: Active Protocol: Document 12/21/22 09:08 AM (Rec: 12/21/22 13:37 AM [id number]) Balance Tests Single Limb Standing Single Limb- Right 20 Single Limb- Left 20 PT-OP-E Functional Tests Start: 12/20/22 17:09 Freq: Status: Active Protocol: Document 12/21/22 09:08 AM (Rec: 12/21/22 13:37 AM [id number]) Functional Tests 30 Second Sit to Stand Test Score 8 Comments knee valgus Five Times Sit to Stand Test Score 17 sec Comments valgus PT-OP-F Manual Assessment Start: 12/20/22 17:09 Freq: Status: Active Protocol: Document 12/21/22 09:08 AM (Rec: 12/21/22 13:37 AM [id number]) Manual Assessments Joint Mobility Assessment Joint Mobility Assessment Hypomobility at bilateral patella PT-OP-G Mobility & Gait Start: 12/20/22 17:09 Freq: Status: Active Protocol: Document 12/21/22 09:08 AM (Rec: 12/21/22 13:37 AM [id number]) OP Gait Assessment Gait Gait Assistance Required: Independent Assistive Devices Assistive Device None Gait Deviations General Gait Pattern Within Normal Limits PT-OP-J Posture/Palpation/Skin Start: 12/20/22 17:09 Freq: Status: Active Protocol: Document 12/21/22 09:08 AM (Rec: 12/21/22 13:37 AM [id number]) Posture Evaluation Position Standing Hip Posture (L) Internally Rotated,(R) Internally Rotated Knee Posture (L) Genu Valgus,(R) Genu Valgus Comments Posture Comments Knee valgus and hip MR with squat and STS transfer PT-OP-K Range of Motion Start: 12/20/22 17:09 Freq: Status: Active Protocol: Document 12/21/22 09:08 AM (Rec: 12/21/22 13:37 AM [id number]) Knee Goniometric Range of Motion Knee Right Knee ROM WFL Yes Patient Position Supine Flexion Active (degrees) 145 Extension Active (degrees) 3 Comments Hamstring 90/90: 33 Left Knee ROM WFL Yes Patient Position Supine Flexion Active (degrees) 145 Extension Active (degrees) 3 Comments Hamstring 90/90: 25 PT-OP-M Strength Start: 12/20/22 17:09 Freq: Status: Active Protocol: Document 12/21/22 09:08 AM (Rec: 12/21/22 13:37 AM [id number]) Hip Strength Hip Manual Muscle Testing Right Flexion (L2) 3+ Fair+ Abduction 3 Fair Adduction 5 Normal External Rotation 4- Good- Internal Rotation 4- Good- Left Flexion (L2) 3+ Fair+ Abduction 3+ Fair+ Adduction 5 Normal External Rotation 4- Good- Internal Rotation 4- Good- Knee Strength Knee Manual Muscle Testing Right Flexion (S2) 4 Good Extension (L3) 4+ Good+ Left Flexion (S2) 4 Good Extension (L3) 4+ Good+ PT-OP-Q Treatments Start: 12/20/22 17:09 Freq: Status: Active Protocol: Document 01/24/23 10:39 AM (Rec: 01/24/23 11:45 AM [id number]) Cardio Equipment Bicycle (Upright) Duration (Minutes) 5 Resistance 7 Seat Position 3 Therapeutic Exercises Sidelying Exercises Clamshells Sidelying Exercise Name Clamshell Side bilateral Reps/Minutes x10 Standing Exercises resisted side step Standing Exercise Name HEP review Side bilateral Resistance OTB Equipment Used railing for support Reps/Minutes x20 ft Standing hip ext Standing Exercise Name HEP review Side bilateral Resistance OTB Equipment Used railing for support Reps/Minutes 2x10 Comments cues for upright posture Standing hip abduction Standing Exercise Name HEP review Side bilateral Resistance peach TB Equipment Used railing and band Reps/Minutes x10 ea Comments cues for upright posture, eccentric control Chair squat Standing Exercise Name Chair squat>chair taps Side bilateral Equipment Used theraband at knees to decrease knee valgus Reps/Minutes x5 ea Comments standard mesh chair, vc eccentric control Manual Therapy Treatment Soft Tissue Mobilization Satish LE Body Location B ITB, glutes Mobilization Type Myofascial Release,Trigger Point Release Intensity/Depth Moderate Body Position Sidelying Joint Mobilizations Patellar mob Joint patellar mob R Direction inferior Grade II Body Position Supine Reps/Duration 2 min Manual Techniques Jose stretch Type Jose stretch Body Position Supine Reps/Duration 2x30 sec ea PT-OP-T Assessment and Plan Start: 12/20/22 17:09 Freq: Status: Active Protocol: Document 01/24/23 10:39 AM (Rec: 01/24/23 11:45 AM [id number]) Physical Therapy Assessment Goals Pain Impairment Pain Impairment Pt reports pain at 5/10 at the worst Short Term Goal (STG) Pt with 3/10 knee pain at the worst. 01/24/23: Pt reports pain at 4/ 10 at the worst. STG Duration 01/11/23 Longterm Goal (LTG) Pt with 1/10 knee pain at the worst. LTG Duration 02/01/23 Strength Impairment Hip strength impairment Impairment Pt with 3+ to 4-/5 gross hip strength bilaterally. Short Term Goal (STG) Pt with grossly 4/5 strength at bilateral hips. STG Duration 9/20/23 Longterm Goal (LTG) Pt with grossly 4+/5 strength at bilateral hips. LTG Duration 02/01/23 30 sec STS test Impairment LE strength impairment Impairment Pt able to complete 8 STS squats in 30 seconds. Short Term Goal (STG) Pt able to complete 12 STS squats in 30 seconds without knee valgus stress. 01/24/23: Progressin STS squats with min valgus stress at end when fatigued. STG Duration 01/11/23 Theatrical Rigger Goal (LTG) Pt able to complete 15 STS squats in 30 seconds without knee valgus stress. LTG Duration 02/01/23 Biking Impairment Pain with biking Impairment Pt able to bike 3-4 miles currently, though would like to be able to bike 20-25 miles without pain. Short Term Goal (STG) Pt able to bike 10 miles without increase in knee pain. 01/24/23: Progressing. Pt reports that she was able to bike about 5 miles. She has not been biking recently secondary to recent vacation. STG Duration 01/11/23 Longterm Goal (LTG) Pt able to bike 20 miles without increase in knee pain. LTG Duration 02/01/23 Assessment Summary Assessment Pt demonstrates decreased valgus and improved awareness of knee contorl with chair squats. Pt demonstrates tenderness along glutes near R greater trochanter and along ITB with STM. Pt fatigued at glutes with clamshell exercise . Pt able to progress resistance with standing glute exercises. Pt would benefit from continued PT to progress LE strength to improve knee mechanics. Physical Therapy Plan Frequency and Duration Frequency of Treatment 2x/Week Duration of treatment (weeks) 6 Plan of Care Start Date 12/21/22 Plan of Care End Date 02/01/23 Therapeutic Interventions Therapeutic Interventions Balance Training,Coordination Training,Gait Training,Home Exercise Program,Joint Mobilizations,Manual Therapy, Patient/Caregiver Education, Self-Care/Home Management,Soft Tissue Mobilization,Taping, Therapeutic Activities, Therapeutic Exercises Modalities Cold Pack/Ice Massage,Electric Stimulation,Hot Packs, Ultrasound Next Visit Focus/Plan Next Note Type Treatment Note Next Visit Plan Assess if pt had bike fitting and self-STM w/ rolling pin. Continue POC. POC: Progress glute strengthening, progress LE flexibility, continue focus on LE mechanics to decrease knee valgus stress with CKC
--- NOTE | 2023-01-24 10:39 | PT.OPPOC ---
Physical, Occupational & Speech Therapy At [facility] Current Diagnoses Pain in unspecified knee (02/10/23) Patellar tendinitis, unspecified knee (02/10/23) Visit Care Team Role Provider Type Jj Vora DO Attending Provider Physician Family Provider Primary Care Provider Referring Provider Specialty: Family Practice Address: [address] [place] [address], [facility] Email: [email or web address] Plan Of Care PT-OP-T Assessment and Plan Start: 12/20/22 17:09 Freq: Status: Active Protocol: Document 02/10/23 09:04 AM (Rec: 02/10/23 17:09 AM [id number]) Physical Therapy Assessment Goals Pain Impairment Pain Impairment Pt reports pain at 5/10 at the worst Short Term Goal (STG) Pt with 3/10 knee pain at the worst. 01/24/23: Pt reports pain at 4/ 10 at the worst. STG Duration 01/11/23 Clinical Aide Goal (LTG) Pt with 1/10 knee pain at the worst. 02/10/23: Goal met, Pt reports pain at 1-2/10. LTG Duration 02/11/23-achieved Strength Impairment Hip strength impairment Impairment Pt with 3+ to 4-/5 gross hip strength bilaterally. Short Term Goal (STG) Pt with grossly 4/5 strength at bilateral hips. STG Duration 01/11/23 Penitentiary Goal (LTG) Pt with grossly 4+/5 strength at bilateral hips. LTG Duration 02/11/23-achieved 30 sec STS test Impairment LE strength impairment Impairment Pt able to complete 8 STS squats in 30 seconds. Short Term Goal (STG) Pt able to complete 12 STS squats in 30 seconds without knee valgus stress. 01/24/23: Progressin STS squats with min valgus stress at end when fatigued. STG Duration 01/11/23 Penitentiary Goal (LTG) Pt able to complete 15 STS squats in 30 seconds without knee valgus stress. 02/10/23: Pt progressing towards goal, though unmet. Pt able to do 12 STS Squats in 30 seconds. LTG Duration 02/11/23-achieved Biking Impairment Pain with biking Impairment Pt able to bike 3-4 miles currently, though would like to be able to bike 20-25 miles without pain. Short Term Goal (STG) Pt able to bike 10 miles without increase in knee pain. 01/24/23: Progressing. Pt reports that she was able to bike about 5 miles. She has not been biking recently secondary to recent vacation. 02/07: Pt reports she's getting there but has to be active daily or else loses it all. 5 miles on Monday and pt's pain was 4/10 at worst. STG Duration 01/11/23 Clinical Aide Goal (LTG) Pt able to bike 20 miles without increase in knee pain. 02/10/23: Pt reports that she feels that she could probably bike 20 miles, though has not had the opportunity recently. Pt has been biking about 9 miles recently. LTG Duration 02/11/23-partially met Progress Towards Goals Progress Towards Goals Goals Met Assessment Summary Assessment Pt agreeable to d/c today. Pt with overall reduction in symptoms and demonstrates good understanding of HEP. Pt met all STG. Pt encouraged to contact PT if she has future questions/concerns regarding HEP. Physical Therapy Plan Frequency and Duration Frequency of Treatment 2x/Week Duration of treatment (weeks) 7 Plan of Care Start Date 12/21/22 Plan of Care End Date 02/11/23 Therapeutic Interventions Therapeutic Interventions Balance Training,Coordination Training,Gait Training,Home Exercise Program,Joint Mobilizations,Manual Therapy, Patient/Caregiver Education, Self-Care/Home Management,Soft Tissue Mobilization,Taping, Therapeutic Activities, Therapeutic Exercises Modalities Cold Pack/Ice Massage,Electric Stimulation,Hot Packs, Ultrasound Discharge Physical Therapy Discharge Reasons Goals Met Discharge Comments Pt d/c with goals being met. Pt d/c with HEP Next Visit Focus/Plan Next Note Type Treatment Note Plan of Care Dates Plan of Care Start Date 12/21/22 Plan of Care End Date 02/11/23 Electronically Signed by: Orquidea Joseph, PT 02/10/23 [id number] If you are in agreement with this Plan of Care, please return a signed and dated copy. I have reviewed this Plan of Care and certify that the skilled therapy services above are required to meet the patient?s needs. Physician Signature Date Printed Name and Credentials Clinical Instructor Signature Printed Name and Credentials
--- NOTE | 2023-01-27 11:27 | PT.OTN ---
Current Diagnoses Pain in unspecified knee (01/27/23) Patellar tendinitis, unspecified knee (01/27/23) Physical Therapy Treatment Note PT-OP-A Visit Information Start: 12/20/22 17:09 Freq: Status: Active Protocol: Document 01/27/23 09:33 NBM (Rec: 01/27/23 10:17 [facility] [id number]) Out-Patient Physical Therapy Visit Information Visit Information Visit Type Treatment Note Visit Start Time 09:33 Visit Stop Time 10:18 Total Visit Minutes 45 Visit Number 7 Number of CHIP UNLOADER Visits 1 Evaluation Information Evaluation Date 12/21/22 PT-OP-B Current Condition Start: 12/20/22 17:09 Freq: Status: Active Protocol: Document 12/27/22 09:48 AM (Rec: 12/27/22 11:55 AM [id number]) Current Condition History of Current Condition Onset Date 2 months ago Current Complaints Bilateral knee pain History of Current Condition Pt reports that she went on a long bike ride and her knees were sore following. Pt feels that her bike set-up might not be set up appropriately. She is going to get into a bike shop to have them assess her form. Pt reports that stopping and getting her feet to the ground is challenging to keep her balance. Pt reports that her knees her at bilateral patella. Pt reports that she converted her bike into an e- bike. PT-OP-C Subjective Start: 12/20/22 17:09 Freq: Status: Active Protocol: Document 01/27/23 09:33 NBM (Rec: 01/27/23 10:17 [facility] [id number]) OP-PT Subjective Patient Comments Patient Comments Isela reports she used her ex' s to help with her R hip and knee crankiness. She was on vacation and walked on the beach with only little hip pain. PT-OP-D Balance Start: 12/20/22 17:09 Freq: Status: Active Protocol: Document 12/21/22 09:08 AM (Rec: 12/21/22 13:37 AM [id number]) Balance Tests Single Limb Standing Single Limb- Right 20 Single Limb- Left 20 PT-OP-E Functional Tests Start: 12/20/22 17:09 Freq: Status: Active Protocol: Document 12/21/22 09:08 AM (Rec: 12/21/22 13:37 AM [id number]) Functional Tests 30 Second Sit to Stand Test Score 8 Comments knee valgus Five Times Sit to Stand Test Score 17 sec Comments valgus PT-OP-F Manual Assessment Start: 12/20/22 17:09 Freq: Status: Active Protocol: Document 12/21/22 09:08 AM (Rec: 12/21/22 13:37 AM [id number]) Manual Assessments Joint Mobility Assessment Joint Mobility Assessment Hypomobility at bilateral patella PT-OP-G Mobility & Gait Start: 12/20/22 17:09 Freq: Status: Active Protocol: Document 12/21/22 09:08 AM (Rec: 12/21/22 13:37 AM [id number]) OP Gait Assessment Gait Gait Assistance Required: Independent Assistive Devices Assistive Device None Gait Deviations General Gait Pattern Within Normal Limits PT-OP-J Posture/Palpation/Skin Start: 12/20/22 17:09 Freq: Status: Active Protocol: Document 12/21/22 09:08 AM (Rec: 12/21/22 13:37 AM [id number]) Posture Evaluation Position Standing Hip Posture (L) Internally Rotated,(R) Internally Rotated Knee Posture (L) Genu Valgus,(R) Genu Valgus Comments Posture Comments Knee valgus and hip MR with squat and STS transfer PT-OP-K Range of Motion Start: 12/20/22 17:09 Freq: Status: Active Protocol: Document 12/21/22 09:08 AM (Rec: 12/21/22 13:37 AM [id number]) Knee Goniometric Range of Motion Knee Right Knee ROM WFL Yes Patient Position Supine Flexion Active (degrees) 145 Extension Active (degrees) 3 Comments Hamstring 90/90: 33 Left Knee ROM WFL Yes Patient Position Supine Flexion Active (degrees) 145 Extension Active (degrees) 3 Comments Hamstring 90/90: 25 PT-OP-M Strength Start: 12/20/22 17:09 Freq: Status: Active Protocol: Document 12/21/22 09:08 AM (Rec: 12/21/22 13:37 AM [id number]) Hip Strength Hip Manual Muscle Testing Right Flexion (L2) 3+ Fair+ Abduction 3 Fair Adduction 5 Normal External Rotation 4- Good- Internal Rotation 4- Good- Left Flexion (L2) 3+ Fair+ Abduction 3+ Fair+ Adduction 5 Normal External Rotation 4- Good- Internal Rotation 4- Good- Knee Strength Knee Manual Muscle Testing Right Flexion (S2) 4 Good Extension (L3) 4+ Good+ Left Flexion (S2) 4 Good Extension (L3) 4+ Good+ PT-OP-Q Treatments Start: 12/20/22 17:09 Freq: Status: Active Protocol: Document 01/27/23 09:33 NBM (Rec: 01/27/23 10:17 NBM [id number]) Cardio Equipment Bicycle (Upright) Duration (Minutes) 5 Resistance 7 Seat Position 3 Other vc to push through heels Therapeutic Exercises Supine Exercises piriformis stretch Supine Exercise Name knee to opp shoulder Side bilateral Reps/Minutes x30s ea Bridging Supine Exercise Name w/ ball squeeze Side bilateral Equipment Used blue/white ball Reps/Minutes 2x10 Comments max cues breathwork Sidelying Exercises Clamshells Sidelying Exercise Name Clamshell Side bilateral Reps/Minutes x10 ea Comments vc slower eccentric Standing Exercises resisted side step Standing Exercise Name HEP review Side bilateral Resistance Lvl 2 OTB Equipment Used railing for support Reps/Minutes x20 ft Standing hip ext Standing Exercise Name HEP review Side bilateral Resistance Lvl 2 OTB ankles Equipment Used railing for support Reps/Minutes 2x10 ea Comments cues for upright posture, straight leg, smaller range Standing hip abduction Standing Exercise Name HEP review Side bilateral Resistance Lvl 2 OTB ankles Equipment Used railing Reps/Minutes x10 ea Comments cues for upright posture, eccentric control Lunge hip flexor stretch Side bilateral Reps/Minutes x30 sec ea Comments cues for form Chair squat Standing Exercise Name Chair squat>chair taps Side bilateral Resistance [place] Tb Equipment Used theraband at knees to decrease knee valgus Reps/Minutes x5 ea w/o band, x10 ea w/ band Comments hip hinge, 2 foam for chair tap Manual Therapy Treatment Soft Tissue Mobilization Satish LE Body Location B ITB, quads, glutes Mobilization Type Instrument Assisted,Myofascial Release,Trigger Point Release Intensity/Depth Moderate Body Position Sidelying Comments rolling pin to ITB Self-Care/Home Management Treatment Education Patient Education Home Exercise Program Other Education Added to HEP: piriformis stretch (knee to opp shala) - HO given. PT-OP-T Assessment and Plan Start: 12/20/22 17:09 Freq: Status: Active Protocol: Document 01/27/23 09:33 [facility] (Rec: 01/27/23 10:17 [facility] [id number]) Physical Therapy Assessment Goals Pain Impairment Pain Impairment Pt reports pain at 5/10 at the worst Short Term Goal (STG) Pt with 3/10 knee pain at the worst. 01/24/23: Pt reports pain at 4/ 10 at the worst. STG Duration 01/11/23 Alf Goal (LTG) Pt with 1/10 knee pain at the worst. LTG Duration 02/01/23 Strength Impairment Hip strength impairment Impairment Pt with 3+ to 4-/5 gross hip strength bilaterally. Short Term Goal (STG) Pt with grossly 4/5 strength at bilateral hips. STG Duration 01/11/23 Customer Project Manager Goal (LTG) Pt with grossly 4+/5 strength at bilateral hips. LTG Duration 02/01/23 30 sec STS test Impairment LE strength impairment Impairment Pt able to complete 8 STS squats in 30 seconds. Short Term Goal (STG) Pt able to complete 12 STS squats in 30 seconds without knee valgus stress. 01/24/23: Progressin STS squats with min valgus stress at end when fatigued. STG Duration 01/11/23 Customer Project Manager Goal (LTG) Pt able to complete 15 STS squats in 30 seconds without knee valgus stress. LTG Duration 02/01/23 Biking Impairment Pain with biking Impairment Pt able to bike 3-4 miles currently, though would like to be able to bike 20-25 miles without pain. Short Term Goal (STG) Pt able to bike 10 miles without increase in knee pain. 01/24/23: Progressing. Pt reports that she was able to bike about 5 miles. She has not been biking recently secondary to recent vacation. STG Duration 01/11/23 Customer Project Manager Goal (LTG) Pt able to bike 20 miles without increase in knee pain. LTG Duration 02/01/23 Assessment Summary Assessment Isela demonstrates improving self-awareness with form for lunging hip flexor stretch. She tends to focus on strengthening ex's and is reminded to stretch as well. She tolerates increased resistance for hip ex's from Lvl 1 Tb to Lvl 2 Tb. She struggles with breathwork requiring maximum cues with bridging. Palpable tension in ITB and quads improves with manual therapy. Added to HEP: piriformis stretch (knee to opp shala) - HO given. Physical Therapy Plan Frequency and Duration Frequency of Treatment 2x/Week Duration of treatment (weeks) 6 Plan of Care Start Date 12/21/22 Plan of Care End Date 02/01/23 Therapeutic Interventions Therapeutic Interventions Balance Training,Coordination Training,Gait Training,Home Exercise Program,Joint Mobilizations,Manual Therapy, Patient/Caregiver Education, Self-Care/Home Management,Soft Tissue Mobilization,Taping, Therapeutic Activities, Therapeutic Exercises Modalities Cold Pack/Ice Massage,Electric Stimulation,Hot Packs, Ultrasound Next Visit Focus/Plan Next Note Type Treatment Note Next Visit Plan Assess if pt had bike fitting and self-STM w/ rolling pin. Continue POC. POC: Progress glute strengthening, progress LE flexibility, continue focus on LE mechanics to decrease knee valgus stress with CKC
--- NOTE | 2023-02-07 10:20 | PT.OTN ---
Current Diagnoses Pain in unspecified knee (02/07/23) Patellar tendinitis, unspecified knee (02/07/23) Physical Therapy Treatment Note PT-OP-A Visit Information Start: 12/20/22 17:09 Freq: Status: Active Protocol: Document 02/07/23 09:43 NBM (Rec: 02/07/23 10:19 NBM [id number]) Out-Patient Physical Therapy Visit Information Visit Information Visit Type Treatment Note Visit Start Time 09:40 Visit Stop Time 10:20 Total Visit Minutes 40 Visit Number 8 Number of ECONOMICS PROFESSOR Visits 2 PT-OP-B Current Condition Start: 12/20/22 17:09 Freq: Status: Active Protocol: Document 12/27/22 09:48 AM (Rec: 12/27/22 11:55 AM [id number]) Current Condition History of Current Condition Onset Date 2 months ago Current Complaints Bilateral knee pain History of Current Condition Pt reports that she went on a long bike ride and her knees were sore following. Pt feels that her bike set-up might not be set up appropriately. She is going to get into a bike shop to have them assess her form. Pt reports that stopping and getting her feet to the ground is challenging to keep her balance. Pt reports that her knees her at bilateral patella. Pt reports that she converted her bike into an e- bike. PT-OP-C Subjective Start: 12/20/22 17:09 Freq: Status: Active Protocol: Document 02/07/23 09:43 NBM (Rec: 02/07/23 10:19 NBM [id number]) OP-PT Subjective Patient Comments Patient Comments Isela reports she's the rolling pin really helps and she had her bike fitting. Pt was thinking about riding her bike in today but didn't because of slippery leaves. She rode her bike in from [place] last visit on 01/27. PT-OP-D Balance Start: 12/20/22 17:09 Freq: Status: Active Protocol: Document 12/21/22 09:08 AM (Rec: 12/21/22 13:37 AM [id number]) Balance Tests Single Limb Standing Single Limb- Right 20 Single Limb- Left 20 PT-OP-E Functional Tests Start: 12/20/22 17:09 Freq: Status: Active Protocol: Document 12/21/22 09:08 AM (Rec: 12/21/22 13:37 AM [id number]) Functional Tests 30 Second Sit to Stand Test Score 8 Comments knee valgus Five Times Sit to Stand Test Score 17 sec Comments valgus PT-OP-F Manual Assessment Start: 12/20/22 17:09 Freq: Status: Active Protocol: Document 12/21/22 09:08 AM (Rec: 12/21/22 13:37 AM [id number]) Manual Assessments Joint Mobility Assessment Joint Mobility Assessment Hypomobility at bilateral patella PT-OP-G Mobility & Gait Start: 12/20/22 17:09 Freq: Status: Active Protocol: Document 12/21/22 09:08 AM (Rec: 12/21/22 13:37 AM [id number]) OP Gait Assessment Gait Gait Assistance Required: Independent Assistive Devices Assistive Device None Gait Deviations General Gait Pattern Within Normal Limits PT-OP-J Posture/Palpation/Skin Start: 12/20/22 17:09 Freq: Status: Active Protocol: Document 12/21/22 09:08 AM (Rec: 12/21/22 13:37 AM [id number]) Posture Evaluation Position Standing Hip Posture (L) Internally Rotated,(R) Internally Rotated Knee Posture (L) Genu Valgus,(R) Genu Valgus Comments Posture Comments Knee valgus and hip MR with squat and STS transfer PT-OP-K Range of Motion Start: 12/20/22 17:09 Freq: Status: Active Protocol: Document 12/21/22 09:08 AM (Rec: 12/21/22 13:37 AM [id number]) Knee Goniometric Range of Motion Knee Right Knee ROM WFL Yes Patient Position Supine Flexion Active (degrees) 145 Extension Active (degrees) 3 Comments Hamstring 90/90: 33 Left Knee ROM WFL Yes Patient Position Supine Flexion Active (degrees) 145 Extension Active (degrees) 3 Comments Hamstring 90/90: 25 PT-OP-M Strength Start: 12/20/22 17:09 Freq: Status: Active Protocol: Document 12/21/22 09:08 AM (Rec: 12/21/22 13:37 AM [id number]) Hip Strength Hip Manual Muscle Testing Right Flexion (L2) 3+ Fair+ Abduction 3 Fair Adduction 5 Normal External Rotation 4- Good- Internal Rotation 4- Good- Left Flexion (L2) 3+ Fair+ Abduction 3+ Fair+ Adduction 5 Normal External Rotation 4- Good- Internal Rotation 4- Good- Knee Strength Knee Manual Muscle Testing Right Flexion (S2) 4 Good Extension (L3) 4+ Good+ Left Flexion (S2) 4 Good Extension (L3) 4+ Good+ PT-OP-Q Treatments Start: 12/20/22 17:09 Freq: Status: Active Protocol: Document 02/07/23 09:43 NB (Rec: 02/07/23 10:19 [facility] [id number]) Cardio Equipment Bicycle (Upright) Duration (Minutes) 8 Resistance 7 Seat Position 3 Other vc to push through heels Therapeutic Exercises Supine Exercises Hip flexor stretch Supine Exercise Name Jose position Side bilateral Reps/Minutes 2x45s ea Comments added to HEP piriformis stretch Supine Exercise Name knee to opp shoulder Side bilateral Reps/Minutes x30s ea Bridging Supine Exercise Name w/ ball squeeze Side bilateral Equipment Used blue/white ball Reps/Minutes 2x10 Comments max cues breathwork Sidelying Exercises Clamshells Sidelying Exercise Name Clamshell Side bilateral Reps/Minutes x10 ea Comments vc breathwork Standing Exercises resisted side step Standing Exercise Name HEP review Side bilateral Resistance Lvl 2 OTB Equipment Used railing for support Reps/Minutes x10 ft ea Standing hip ext Standing Exercise Name HEP review Side bilateral Resistance Lvl 2 OTB ankles Equipment Used railing for support Reps/Minutes x10 ea Comments lateral lean Standing hip abduction Standing Exercise Name HEP review Side bilateral Resistance Lvl 2 OTB ankles Equipment Used railing Reps/Minutes x10 ea Comments lateral lean Lunge hip flexor stretch Side bilateral Reps/Minutes x30 sec ea Comments cues for form Chair squat Standing Exercise Name 1. Chair squat 2. Chair taps Side bilateral Resistance [place] Tb Equipment Used theraband at knees to decrease knee valgus Reps/Minutes x10 ea Comments hip hinge, 2 foam for chair tap PT-OP-T Assessment and Plan Start: 12/20/22 17:09 Freq: Status: Active Protocol: Document 02/07/23 09:43 NBM (Rec: 02/07/23 10:19 [facility] [id number]) Physical Therapy Assessment Goals Pain Impairment Pain Impairment Pt reports pain at 5/10 at the worst Short Term Goal (STG) Pt with 3/10 knee pain at the worst. 01/24/23: Pt reports pain at 4/ 10 at the worst. STG Duration 01/11/23 Repeat Photocomposing Machine Operator Goal (LTG) Pt with 1/10 knee pain at the worst. LTG Duration 02/01/23 Strength Impairment Hip strength impairment Impairment Pt with 3+ to 4-/5 gross hip strength bilaterally. Short Term Goal (STG) Pt with grossly 4/5 strength at bilateral hips. STG Duration 01/11/23 Penitentiary Goal (LTG) Pt with grossly 4+/5 strength at bilateral hips. LTG Duration 02/01/23 30 sec STS test Impairment LE strength impairment Impairment Pt able to complete 8 STS squats in 30 seconds. Short Term Goal (STG) Pt able to complete 12 STS squats in 30 seconds without knee valgus stress. 01/24/23: Progressin STS squats with min valgus stress at end when fatigued. STG Duration 01/11/23 Repeat Photocomposing Machine Operator Goal (LTG) Pt able to complete 15 STS squats in 30 seconds without knee valgus stress. LTG Duration 02/01/23 Biking Impairment Pain with biking Impairment Pt able to bike 3-4 miles currently, though would like to be able to bike 20-25 miles without pain. Short Term Goal (STG) Pt able to bike 10 miles without increase in knee pain. 01/24/23: Progressing. Pt reports that she was able to bike about 5 miles. She has not been biking recently secondary to recent vacation. 02/07: Pt reports she's getting there but has to be active daily or else loses it all. 5 miles on Monday and pt's pain was 4/10 at worst. STG Duration 01/11/23 Repeat Photocomposing Machine Operator Goal (LTG) Pt able to bike 20 miles without increase in knee pain. LTG Duration 02/01/23 Assessment Summary Assessment Isela requires cues for breathholding with sidelying clamshells and cues for core activation with resisted hip extension due to lumbar hyperextension. Her self- awareness improves with cueing and repetition. She is challenged with resisted hip abduction on R>L stance leg with some R knee discomfort and requires cues with resisted sidesteps for excessive pelvic rotation. Pt reports sleeping in position - added to HEP: Jose position hip flexor stretch- HO given and HO regiven for piriformis stretch . Physical Therapy Plan Frequency and Duration Frequency of Treatment 2x/Week Duration of treatment (weeks) 6 Plan of Care Start Date 12/21/22 Plan of Care End Date 02/01/23 Therapeutic Interventions Therapeutic Interventions Balance Training,Coordination Training,Gait Training,Home Exercise Program,Joint Mobilizations,Manual Therapy, Patient/Caregiver Education, Self-Care/Home Management,Soft Tissue Mobilization,Taping, Therapeutic Activities, Therapeutic Exercises Modalities Cold Pack/Ice Massage,Electric Stimulation,Hot Packs, Ultrasound Next Visit Focus/Plan Next Note Type Treatment Note Next Visit Plan Progress glute strengthening, progress LE flexibility, continue focus on LE mechanics to decrease knee valgus stress with CKC
--- NOTE | 2023-02-10 09:04 | PT.OTN ---
Current Diagnoses Pain in unspecified knee (02/10/23) Patellar tendinitis, unspecified knee (02/10/23) Physical Therapy Treatment Note PT-OP-A Visit Information Start: 12/20/22 17:09 Freq: Status: Active Protocol: Document 02/10/23 09:04 AM (Rec: 02/10/23 17:09 AM [id number]) Out-Patient Physical Therapy Visit Information Visit Information Visit Type Discharge Summary Visit Start Time 09:04 Visit Stop Time 09:47 Total Visit Minutes 43 Visit Number 9 Number of MUCK HAULER Visits 2 PT-OP-B Current Condition Start: 12/20/22 17:09 Freq: Status: Active Protocol: Document 12/27/22 09:48 AM (Rec: 12/27/22 11:55 AM [id number]) Current Condition History of Current Condition Onset Date 2 months ago Current Complaints Bilateral knee pain History of Current Condition Pt reports that she went on a long bike ride and her knees were sore following. Pt feels that her bike set-up might not be set up appropriately. She is going to get into a bike shop to have them assess her form. Pt reports that stopping and getting her feet to the ground is challenging to keep her balance. Pt reports that her knees her at bilateral patella. Pt reports that she converted her bike into an e- bike. PT-OP-C Subjective Start: 12/20/22 17:09 Freq: Status: Active Protocol: Document 02/10/23 09:04 AM (Rec: 02/10/23 17:09 AM [id number]) OP-PT Subjective Patient Comments Patient Comments Pt reports that her knees and hip have been feeling better. Pt agreeable to d/c today. Pt reports that she goes to the gym 2-3x/week and has been biking as well. PT-OP-D Balance Start: 12/20/22 17:09 Freq: Status: Active Protocol: Document 12/21/22 09:08 AM (Rec: 12/21/22 13:37 AM [id number]) Balance Tests Single Limb Standing Single Limb- Right 20 Single Limb- Left 20 PT-OP-E Functional Tests Start: 12/20/22 17:09 Freq: Status: Active Protocol: Document 12/21/22 09:08 AM (Rec: 12/21/22 13:37 AM [id number]) Functional Tests 30 Second Sit to Stand Test Score 8 Comments knee valgus Five Times Sit to Stand Test Score 17 sec Comments valgus PT-OP-F Manual Assessment Start: 12/20/22 17:09 Freq: Status: Active Protocol: Document 12/21/22 09:08 AM (Rec: 12/21/22 13:37 AM [id number]) Manual Assessments Joint Mobility Assessment Joint Mobility Assessment Hypomobility at bilateral patella PT-OP-G Mobility & Gait Start: 12/20/22 17:09 Freq: Status: Active Protocol: Document 12/21/22 09:08 AM (Rec: 12/21/22 13:37 AM [id number]) OP Gait Assessment Gait Gait Assistance Required: Independent Assistive Devices Assistive Device None Gait Deviations General Gait Pattern Within Normal Limits PT-OP-J Posture/Palpation/Skin Start: 12/20/22 17:09 Freq: Status: Active Protocol: Document 12/21/22 09:08 AM (Rec: 12/21/22 13:37 AM [id number]) Posture Evaluation Position Standing Hip Posture (L) Internally Rotated,(R) Internally Rotated Knee Posture (L) Genu Valgus,(R) Genu Valgus Comments Posture Comments Knee valgus and hip MR with squat and STS transfer PT-OP-K Range of Motion Start: 12/20/22 17:09 Freq: Status: Active Protocol: Document 12/21/22 09:08 AM (Rec: 12/21/22 13:37 AM [id number]) Knee Goniometric Range of Motion Knee Right Knee ROM WFL Yes Patient Position Supine Flexion Active (degrees) 145 Extension Active (degrees) 3 Comments Hamstring 90/90: 33 Left Knee ROM WFL Yes Patient Position Supine Flexion Active (degrees) 145 Extension Active (degrees) 3 Comments Hamstring 90/90: 25 PT-OP-M Strength Start: 12/20/22 17:09 Freq: Status: Active Protocol: Document 12/21/22 09:08 AM (Rec: 12/21/22 13:37 AM [id number]) Hip Strength Hip Manual Muscle Testing Right Flexion (L2) 3+ Fair+ Abduction 3 Fair Adduction 5 Normal External Rotation 4- Good- Internal Rotation 4- Good- Left Flexion (L2) 3+ Fair+ Abduction 3+ Fair+ Adduction 5 Normal External Rotation 4- Good- Internal Rotation 4- Good- Knee Strength Knee Manual Muscle Testing Right Flexion (S2) 4 Good Extension (L3) 4+ Good+ Left Flexion (S2) 4 Good Extension (L3) 4+ Good+ PT-OP-Q Treatments Start: 12/20/22 17:09 Freq: Status: Active Protocol: Document 02/10/23 09:04 AM (Rec: 02/10/23 17:09 AM [id number]) Therapeutic Exercises Supine Exercises piriformis stretch Supine Exercise Name knee to opp shoulder Side bilateral Reps/Minutes x30s ea Sitting Exercises Clamshells Reps/Minutes x10 ea Comments cues for lumbopelvic stab Standing Exercises resisted side step Standing Exercise Name HEP review Side bilateral Resistance Lvl 2 OTB Equipment Used railing for support Reps/Minutes x10 ft ea Standing hip ext Standing Exercise Name HEP review Side bilateral Resistance Lvl 2 OTB ankles Equipment Used railing for support Reps/Minutes x10 ea Comments lateral lean Standing hip abduction Standing Exercise Name HEP review Side bilateral Resistance Lvl 2 OTB ankles Equipment Used railing Reps/Minutes x10 ea Comments lateral lean Lunge hip flexor stretch Side bilateral Reps/Minutes x30 sec ea Comments kneeling vs standing, knee on blue cushion, HEP PT-OP-T Assessment and Plan Start: 12/20/22 17:09 Freq: Status: Active Protocol: Document 02/10/23 09:04 AM (Rec: 02/10/23 17:09 AM [id number]) Physical Therapy Assessment Goals Pain Impairment Pain Impairment Pt reports pain at 5/10 at the worst Short Term Goal (STG) Pt with 3/10 knee pain at the worst. 01/24/23: Pt reports pain at 4/ 10 at the worst. STG Duration 01/11/23 Skilled Nursing Goal (LTG) Pt with 1/10 knee pain at the worst. 02/10/23: Goal met, Pt reports pain at 1-2/10. LTG Duration 02/11/23-achieved Strength Impairment Hip strength impairment Impairment Pt with 3+ to 4-/5 gross hip strength bilaterally. Short Term Goal (STG) Pt with grossly 4/5 strength at bilateral hips. STG Duration 01/11/23 Air Brush Artist Goal (LTG) Pt with grossly 4+/5 strength at bilateral hips. LTG Duration 02/11/23-achieved 30 sec STS test Impairment LE strength impairment Impairment Pt able to complete 8 STS squats in 30 seconds. Short Term Goal (STG) Pt able to complete 12 STS squats in 30 seconds without knee valgus stress. 01/24/23: Progressin STS squats with min valgus stress at end when fatigued. STG Duration 01/11/23 Air Brush Artist Goal (LTG) Pt able to complete 15 STS squats in 30 seconds without knee valgus stress. 02/10/23: Pt progressing towards goal, though unmet. Pt able to do 12 STS Squats in 30 seconds. LTG Duration 02/11/23-achieved Biking Impairment Pain with biking Impairment Pt able to bike 3-4 miles currently, though would like to be able to bike 20-25 miles without pain. Short Term Goal (STG) Pt able to bike 10 miles without increase in knee pain. 01/24/23: Progressing. Pt reports that she was able to bike about 5 miles. She has not been biking recently secondary to recent vacation. 02/07: Pt reports she's getting there but has to be active daily or else loses it all. 5 miles on Monday and pt's pain was 4/10 at worst. STG Duration 01/11/23 Skilled Nursing Goal (LTG) Pt able to bike 20 miles without increase in knee pain. 02/10/23: Pt reports that she feels that she could probably bike 20 miles, though has not had the opportunity recently. Pt has been biking about 9 miles recently. LTG Duration 02/11/23-partially met Progress Towards Goals Progress Towards Goals Goals Met Assessment Summary Assessment Pt agreeable to d/c today. Pt with overall reduction in symptoms and demonstrates good understanding of HEP. Pt met all STG. Pt encouraged to contact PT if she has future questions/concerns regarding HEP. Physical Therapy Plan Frequency and Duration Frequency of Treatment 2x/Week Duration of treatment (weeks) 7 Plan of Care Start Date 12/21/22 Plan of Care End Date 02/11/23 Therapeutic Interventions Therapeutic Interventions Balance Training,Coordination Training,Gait Training,Home Exercise Program,Joint Mobilizations,Manual Therapy, Patient/Caregiver Education, Self-Care/Home Management,Soft Tissue Mobilization,Taping, Therapeutic Activities, Therapeutic Exercises Modalities Cold Pack/Ice Massage,Electric Stimulation,Hot Packs, Ultrasound Discharge Physical Therapy Discharge Reasons Goals Met Discharge Comments Pt d/c with goals being met. Pt d/c with HEP Next Visit Focus/Plan Next Note Type Treatment Note
== END 2023-02-15 11:18 | disposition home or self-care (01) ==
LOC: PHYS 09:00
PROVIDERS: Family Provider Family Medicine; PCP Family Medicine; Referring Provider Family Medicine; Visit Provider Family Medicine
DX: M25.569 Pain in unspecified knee (principal); M76.50 Patellar tendinitis, unspecified knee
CPT/HCPCS: 97110; 97140; 97161

== ENCOUNTER → 2023-05-17 06:57 | Outpatient (CLI) | payer MEDICARE, OTHER, SELFPAY ==
[2023-05-17 08:27] LABS: Hemoglobin A1C% w Est Avg Glu 5.6 % (4.0-6.0)
[2023-05-17 08:45] LABS: Alanine Aminotransferase 20 IU/L (<35); Albumin 3.8 g/dL (3.5-5.0); Albumin Globulin Ratio 1.5 (1.0-2.8); Alkaline Phosphatase 63 U/L (38-126); Aspartate Aminotransferase 23 IU/L (14-36); BUN Creatinine Ratio 30.7 (6-22); Blood Urea Nitrogen 23 mg/dL (7-17); Calcium 9.4 mg/dL (8.4-10.2); Carbon Dioxide 32 mmol/L (22-32); Chloride 102 mmol/L (98-107); Cholesterol 220 mg/dL (140-199); Estimated Glomerular Filt Rate > 60 mL/min (>60); Globulin 2.6 g/dL (1.7-4.1); Glucose 90 mg/dL (80-110); HDL Cholesterol 70 mg/dL (40-60); HEMOLYSIS < 15 (0-50); LDL Cholesterol Calculated 125 mg/dL (<100); Potassium 4.5 mmol/L (3.4-5.1); Sodium 138 mmol/L (137-145); Total Protein 6.4 g/dL (6.3-8.2); Triglycerides 124 mg/dL (35-150)
== END ==
PROVIDERS: Family Provider Family Medicine; PCP Family Medicine; Referring Provider Family Medicine; Visit Provider Family Medicine
DX: R73.03 Prediabetes (principal); E78.5 Hyperlipidemia, unspecified; K21.9 Gastro-esophageal reflux disease without esophagitis
CPT/HCPCS: 36415; 80053; 80061; 83036

== ENCOUNTER 2023-11-28 06:39 | Day surgery (SDC) | payer MEDICARE, OTHER, SELFPAY ==
[2023-11-28 07:12] VITALS: BP 134/74; PULSE 83; RESP 18; TEMP 36.7; O2SAT 99
[2023-11-28] MEDS: LACTATED RINGERS 1,000 ML 42 ML IV (07:19)
--- NOTE | 2023-11-28 07:43 | P.OP.COLON_ITS ---
Operative Date/Time/Diagnoses Date of procedure: 11/28/23 Time of procedure: 07:47 Pre-op diagnosis: Colorectal screening Procedure & Clinicians Study performed: Screening colonoscopy Same procedure as scheduled: Yes Indications: Colorectal screening Surgeon: Josue Peralta Procedure Notes Procedure in detail: The history and physical was performed/updated and the patient is ASA class is 2. The procedure was discussed in detail with the patient. Potential risks co mplications including infection, bleeding, missed diagnosis, perforation, need for surgery, and were explained. Their questions were answered and informed consent was obtained. Patient was brought to the procedure room and placed standard monitoring equipment. The patient's vital signs were monitored continuously throughout the entire procedure. Prior to starting time-out was performed. The patient was placed in the left lateral recumbent position. Procedural sedation was administered by anesthesia. Examination began with a thorough inspection of the perianal area there was no evidence of fissures, fistulae, external hemorrhoids or cutaneous malignancy. The colonoscopy scope was then placed into the anal canal and was advanced to the cecum, which was identified by the ileocecal valve, the appendiceal orifice and the confluence of the taenia. The scope was then slowly withdrawn examining colon thoroughly in all directions, irrigating it of any residual stool. The scope was retroflexed within the rectum The patient tolerated the procedure well. They will be discharged once criteria are met. The prep was of good/excellent quality. The withdrawl time was 6 minutes. FINDINGS * Unremarkable colonoscopy. Normal healthy colonic mucosa without mass or polyps. Specimen(s): none sent Impression: Normal colonoscopy. Post-procedure Plan for aftercare: No need for further screening colonoscopy unless symptomatic Disposition: same day surgery
--- NOTE | 2023-11-28 07:44 | PM.HP.1 ---
History of Present Illness History of Present Illness Date Patient Seen: 11/28/23 Time Patient Seen: 07:44 Chief complaint: Screening Colonoscopy Narrative: 68-year-old woman here for screening colonoscopy. Last colonoscopy 13 years ago. No family history of colon cancer in first-degree relatives. . No abdominal concerns today. [facility] Medical History (Updated 10/18/23 @ 09:14 by Jj Vora DO) Lumbar strain Preventative health care Patellar tendinitis Pre-diabetes Oculopharyngeal muscular dystrophy Lower extremity neuropathy Borderline hyperlipidemia Lower back pain Diverticulosis Left shoulder pain UTI (urinary tract infection) Cyanocobalamin deficiency GERD (gastroesophageal reflux disease) Anxiety and depression Endometriosis Lichen sclerosus Autoimmune disorder Surgical History S/P total hysterectomy and BSO (bilateral salpingo-oophorectomy) (~1994) Family History Sister Oculopharyngeal muscular dystrophy Social History marital status: household members: spouse and none lives independently: Yes caregiver/support person: No housing: house pets and animals: Yes education level: college occupational status: previously employed Smoking Status: Never smoker second hand exposure: No alcohol intake: current substance use type: does not use Meds Home Medications and Allergies Home Medications Medication Instructions Recorded Confirmed Type estradiol 0.5 mg tablet 0.5 mg PO QDAY #30 tabs 10/17/16 11/28/23 Rx estradiol 0.01% (0.1 mg/gram) 1 gram vaginal DAILY 02/13/18 11/28/23 History vaginal cream (Estrace) triamcinolone acetonide 0.5 % 1 applictn topical DAILY 05/22/18 11/28/23 History topical ointment fluoxetine 10 mg tablet See Rx Instructions .Route 12/12/22 11/28/23 Rx .COMPLEX #135 tabs zolpidem 10 mg tablet 10 mg PO BEDTIME PRN insomnia #30 06/27/23 11/28/23 Rx tabs multivitamin (Multiple Vitamins 1 tab PO DAILY 08/15/23 11/28/23 History tablet) ondansetron 4 mg disintegrating See Rx Instructions .Route 11/27/23 11/28/23 Rx tablet .COMPLEX #30 tabs Allergies Allergy/AdvReac Type Severity Reaction Status Date / Time clavulanic acid Allergy Intermediate jittery, Verified 11/28/23 07:20 [From AUGMENTIN] can't control her legs amoxicillin AdvReac Intermediate Nausea Verified 11/28/23 07:20 Sulfa (Sulfonamide AdvReac Mild NAUSEA Verified 11/28/23 07:20 Antibiotics) Exam Vital Signs (past 8 hours): - 11/28/23 07:12 Temperature 98.0 F Pulse Rate 83 Respiratory Rate 18 Blood Pressure 134/74 Pulse Oximetry 99 Oxygen Delivery Method Room Air Oxygen Delivery Method Room Air Narrative Exam Narrative: General adult woman alert oriented no acute distress Chest nonlabored respiration Extremities warm well perfused Assessment & Plan Assessment & Plan narrative: The patient requires colorectal screening and colonoscopy is recommended. Technical details were discussed. Risks, benefits, alternatives explained. Risks including but not limited to myocardial infarction, aspiration, bleeding, pain, missed lesion, incomplete examination, need for further radiographic studies, intestinal injury, and need for major abdominal surgery were discussed. All questions were answered to their satisfaction, and they are in agreement with this plan. Time-Based Coding :: [TOTAL MINUTES] spent with patient and on the chart (including review of chart, obtaining history, exam, reviewing outside data, placing orders, documenting exam and treatment plan, and counseling patient) on [DATE].
[2023-11-28 08:08] VITALS: BP 89/54; PULSE 64; RESP 16; TEMP 36.6; O2SAT 97
[2023-11-28 08:12] VITALS: BP 85/55; PULSE 63; RESP 17; O2SAT 97
[2023-11-28 08:18] VITALS: BP 88/55; PULSE 73; RESP 15; O2SAT 99
[2023-11-28 08:21] VITALS: BP 101/55; PULSE 64; RESP 14; TEMP 36.6; O2SAT 95
== END 2023-11-28 08:43 | disposition home or self-care (01) ==
PROVIDERS: Family Provider Family Medicine; PCP Family Medicine; Referring Provider Surgery; Visit Provider Surgery
PROC: 0DJD8ZZ Inspection of Lower Intestinal Tract, Via Natural or Artificial Opening Endoscopic (ICD-10-PCS; CPT 45378; principal; 2023-11-28 07:45)
DX: Z12.11 Encounter for screening for malignant neoplasm of colon (principal)
CPT/HCPCS: G0121; 82962; J2704

== ENCOUNTER 2023-12-18 11:15 | Outpatient (RCR) | payer MEDICARE, OTHER, SELFPAY ==
--- NOTE | 2023-11-24 16:06 | PT.OIE ---
Current Diagnoses Other chronic pain (11/24/23) Stiffness of right knee, not elsewhere classified (11/24/23) Stiffness of left knee, not elsewhere classified (11/24/23) Other specified dorsopathies, lumbosacral region (11/24/23) Low back pain, unspecified (11/24/23) Weakness (11/24/23) Strain of muscle, fascia and tendon of lower back, initial encounter (11/24/23) Past Medical History (Last Updated 10/18/23 @ 09:14 by Jj Vora DO) Anxiety and depression Autoimmune disorder Borderline hyperlipidemia Cyanocobalamin deficiency Diverticulosis Endometriosis GERD (gastroesophageal reflux disease) Left shoulder pain Lichen sclerosus Lower back pain Lower extremity neuropathy Lumbar strain Oculopharyngeal muscular dystrophy Patellar tendinitis Pre-diabetes Preventative health care UTI (urinary tract infection) Past Surgical History (Last Reviewed 07/19/23 @ 17:26 by Josue Peralta MD) S/P total hysterectomy and BSO (bilateral salpingo-oophorectomy) (~1994) Visit Care Team Role Provider Type Jj Vora DO Attending Provider Physician Family Provider Primary Care Provider Referring Provider Specialty: Family Practice Address: [address] [place] [address] Email: [email or web address] [facility] Initial Evaluation PT-OP-A Visit Information Start: 11/24/23 11:18 Freq: Status: Active Protocol: Document 11/24/23 11:19 NM (Rec: 11/24/23 12:20 NM [id number]) Out-Patient Physical Therapy Visit Information Visit Information Visit Type Initial Evaluation Visit Note 15 visits Visit Start Time 11:19 Visit Stop Time 12:00 Visit Number 05/08 Evaluation Information Evaluation Date 11/24/23 Precautions Precautions scoliosis PT-OP-B Current Condition Start: 11/24/23 11:18 Freq: Status: Active Protocol: Document 11/24/23 11:19 NM (Rec: 11/24/23 12:20 NM [id number]) Current Condition History of Current Condition Onset Date a few weeks ago Current Complaints pain, limitations to ADLs/ IADLs History of Current Condition She reports a few weeks ago that she had a L sided low back pain, has L sided pain when making the bed. She felt like it caught and gave out . Thinks she was bending over and rotating to the R. She was unable to stand up straight afterward, took several weeks to be able to stand up. She reports that it took a few weeks to get better . She does a series of exercises every morning, which helped; unable to do them originally after injury. She reports performs them more abbreviated. Denies numbness/ tingling/burning with this incident. Pt reports possible neuropathy in B feet, states near toe and underneath at the ball of her feet. Hx of low back pain. Pt also reports a hx of chronic R hip pain. Denies changes to BLE strength since onset of pain, but does report changes in balance. She has family hx of muscle dystrophy that has late onset. Prior Treatments and Tests Radiograph 09/2021 lumbar spine : multilevel spondylosis at L4 -5 level PT-OP-C Subjective Start: 11/24/23 11:18 Freq: Status: Active Protocol: Document 11/24/23 11:19 NM (Rec: 11/24/23 12:20 NM [id number]) OP-PT Subjective Patient Comments Patient Comments Pt consents to participate in evaluation Patient Questionnaires Oswestry Low Back Index Oswestry Score OP-PT Pain Assessment Location lumbar spine Pain Location Details L sided near midline, also on R side Scale Used Numeric (0 - 10) Description Aching,Chronic,Tingling Description- Other annoying Frequency Frequent Pain Aggravating Factors Position,ADL's,Activity, Exercise,Standing,Walking, Bending,Lifting Other Pain Aggravating Factors ppt/flexion, riding bike, weeding Pain Alleviating Factors Medication Other Pain Alleviating Factors core work and neutral spine PT-OP-E Functional Tests Start: 11/24/23 11:18 Freq: Status: Active Protocol: Document 11/24/23 11:19 NM (Rec: 11/24/23 12:20 NM [id number]) Functional Tests Other Forward Trunk Flexion Test Name of Test measured finger to floor Score 7 Comment uses hands to PT-OP-F Manual Assessment Start: 11/24/23 11:18 Freq: Status: Active Protocol: Document 11/24/23 11:19 NM (Rec: 11/24/23 12:20 NM [id number]) Manual Assessments Soft Tissue Assessment Soft Tissue Mobility Assessment Increased paraspinals and hip tightness along spine, especially R side due to scoliosis. B tight hamstrings. R scapular distance to spine 6 cm, 2 cm on L to medial scapular border Joint Mobility Assessment Joint Mobility Assessment Hypomobility of lumbar spine, slight rotation in lower lumbar spine. L lumbar curve. PT-OP-G Mobility & Gait Start: 11/24/23 11:18 Freq: Status: Active Protocol: Document 11/24/23 11:19 NM (Rec: 11/24/23 12:20 NM [id number]) OP Mobility Evaluation Transfers Sit to Stand without UE assistance but slight increase in back pain- 1 rep OP Gait Assessment Gait Gait Assistance Required: Independent Distance (Feet) 150 Gait Deviations General Gait Pattern Antalgic,Flexed Trunk,Lateral Trunk Lean Factors Limiting Gait Function Factors Limiting Gait Function Decreased Activity Tolerance, Decreased Sensation,Limited Range of Motion,Pain PT-OP-J Posture/Palpation/Skin Start: 11/24/23 11:18 Freq: Status: Active Protocol: Document 11/24/23 11:19 NM (Rec: 11/24/23 12:20 NM [id number]) Posture Evaluation Position Standing Head/C-Spine Posture Forward Head T-Spine Posture Fixed Scoliosis on (R) L-Spine Posture Flexible Scoliosis on (L) Shoulder Posture (L) Rounded,(R) Rounded,(R) Elevated Pelvis Posture Posterior Tilted,(R) Iliac Crest Superior Weight Distribution Balanced Hip Posture (L) Externally Rotated,(R) Externally Rotated Knee Posture (L) Genu Valgus,(R) Genu Valgus Comments Posture Comments R TS, L LS curve. R scap closer to spine R hip higher Palpation Assessment Location lumbar spine Palpation Details Tenderness along L SIJ, mild tenderness along paraspinals No tenderness but increased restrictions along paraspinals ; no tenderness to palpation with P-A springing of lumbar spinous processes Spinous processes curve to L with slight rotation PT-OP-K Range of Motion Start: 11/24/23 11:18 Freq: Status: Active Protocol: Document 11/24/23 11:19 NM (Rec: 11/24/23 12:20 NM [id number]) Lumbar Spine Range of Motion Lumbar Spine Active Percentage Flexion 90 Extension 100 Rotation Left 100 Rotation Right 100 Lateral Flexion Left 100 Lateral Flexion Right 75 Comments pain with flex and R LF Hip Goniometric Range of Motion Hip Right Internal Rotation 40 External Rotation 30 Left Internal Rotation 40 External Rotation 25 Knee Goniometric Range of Motion Knee Right Comments Hamstring length: 148 deg Left Comments Hamstring length: 140 deg PT-OP-L Special Tests Start: 11/24/23 11:18 Freq: Status: Active Protocol: Document 11/24/23 11:19 NM (Rec: 11/24/23 12:20 NM [id number]) Special Tests Lumbar Spine Special Tests Distraction Test Results + Badillo/quadrant Test Results + Comments R Straight Leg Raise Test Results + Slump Test Results - PT-OP-M Strength Start: 11/24/23 11:18 Freq: Status: Active Protocol: Document 11/24/23 11:19 NM (Rec: 11/24/23 12:20 NM [id number]) Trunk Strength Trunk Manual Muscle Testing Flexion 4 Good Extension 4 Good Rotation Left 4 Good Rotation Right 4 Good Lateral Flexion Left 4 Good Lateral Flexion Right 4 Good Comments Rotation painful Hip Strength Hip Manual Muscle Testing Right Flexion (L2) 4 Good Extension (S1) 4- Good- Abduction 4 Good Adduction 4- Good- External Rotation 4- Good- Internal Rotation 4- Good- Left Flexion (L2) 4- Good- Extension (S1) 3+ Fair+ Abduction 4- Good- Adduction 3+ Fair+ External Rotation 4- Good- Internal Rotation 4- Good- Comments mild pain with resisted ER Knee Strength Knee Manual Muscle Testing Left Flexion (S2) 4- Good- Extension (L3) 4- Good- Right Flexion (S2) 4- Good- Extension (L3) 4- Good- PT-OP-Q Treatments Start: 11/24/23 11:18 Freq: Status: Active Protocol: Document 11/24/23 11:19 NM (Rec: 11/24/23 12:20 NM [id number]) Therapeutic Exercises Supine Exercises figure 4 stretch Supine Exercise Name with knee flexion Side bilateral Reps/Minutes 30 ea Comments reports harder on R than L, no pain bridge Side bilateral Resistance AROM Equipment Used with ppt Reps/Minutes 2x10x5 Comments requires increased time hamstring dynamic mobilization Supine Exercise Name with nerve mobilization Side bilateral Equipment Used knee flex/ext with strap behind pt Reps/Minutes 10 ea with hold into extension Comments no symptom provocation; edu to stop if symptoms worsen; increased time PT-OP-T Assessment and Plan Start: 11/24/23 11:18 Freq: Status: Active Protocol: Document 11/24/23 11:19 NM (Rec: 11/24/23 12:20 NM [id number]) Physical Therapy Assessment Rehab Potential Rehabilitation Potential Good Evaluation Complexity Number of Personal Factors/Comorbidities 1-2 Number of Body Systems Impaired 1-2 Clinical Presentation at Evaluation Stable Impairments Impairments Activity Tolerance,Balance, Functional Activities, Functional Mobility,Gait,Pain, Posture,ROM,Sensation, Transfers Goals hamstring length Impairment L 140 deg, R 148 deg; trunk flexion 7 Short Term Goal (STG) Pt will improve B hamstring length to at least 155 deg in order to demonstrate improved muscle length for gait and less strain on trunk for ADLs STG Duration 6 weeks Group Home Goal (LTG) Pt will improve B hamstring length to at least 160 deg in order to demonstrate improved muscle length for gait and less strain on trunk for ADLs LTG Duration 10 weeks Oswestry Impairment 11/50 score Hand Packer/Packager Goal (LTG) Pt will decrease oswestry score to less than 10/50 in order to demonstrate improvement in symptoms, activity tolerance, and QOL LTG Duration 10 weeks Strength Impairment L hip strength impaired globally 3+ to 4-/5, trunk strength 4/5 Short Term Goal (STG) Pt will improve L hip strength to at least 4/5 globally in order to provide increased lumbopelvic stability for gait and ADLs STG Duration 6 weeks Hand Packer/Packager Goal (LTG) Pt will improve B hip strength to at least 4+/5 globally and trunk strength to at least 5/ 5 in order to provide increased lumbopelvic stability for gait and ADLs LTG Duration 10 weeks 30 sec STS test Impairment pain reported with repetitive sit to stands, poor hip hinge Short Term Goal (STG) Pt will be able to perform at least 10 sit to stands from standard chair without compensation or increase in back pain and with good form in order to demonstrate improved body mechanics and BLE strength for transfers/ exercise STG Duration 4 weeks Group Home Goal (LTG) Pt will be able to perform at least 12 STS (15 norm for age) within 30 sec without increase in back pain and while maintaining good form in order to demonstrate improved body mechanics and BLE strength for transfers/ exercise LTG Duration 10 weeks Assessment Summary Assessment Pt is a 68 y.o. female presenting with chronic low back pain following recent acute exacerbation several weeks ago when in flex/ twisting position. Pt has impairments in ROM, strength, transfers, activity tolerance, and pain management. She presents with limitations in trunk ROM into flexion and R lateral flexion. Pt is able to stabilize her trunk/core against resistance; however, she does have mild pain with resisted rotation. Pt has had previous imaging revealing scoliosis. She has several muscle imbalances as a result, in addition to B hamstring tightness. Pt's symptoms are reproduced with 3D vertebral compression testing and relieved with distraction; she also has positive straight leg raise test, indicating increase possible disc involvement and neural tension . Previous imaging of lumbar spine reveals multilevel spondylosis. Pt also tender to palpation along L SIJ but not lumbar spine. PT educated pt on exam findings and plan of care, initiating HEP with pt. Pt tolerated exercises well and requires cueing for form. Pt would benefit from skilled PT for mobility, flexibility, strengthening, balance, body mechanics, and transfer training in order to improve symptom management and QOL. Physical Therapy Plan Frequency and Duration Frequency of Treatment 1-2x/wk Duration of treatment (weeks) 10 Plan of Care Start Date 11/24/23 Plan of Care End Date 02/02/24 Therapeutic Interventions Therapeutic Interventions Balance Training,Gait Training ,Home Exercise Program,Joint Mobilizations,Manual Therapy, Neuromuscular Re-education, Orthotic/Prosthetic Management ,Patient/Caregiver Education, Self-Care/Home Management,Soft Tissue Mobilization,Taping, Therapeutic Activities, Therapeutic Exercises Modalities Cold Pack/Ice Massage,Electric Stimulation,Hot Packs Next Visit Focus/Plan Next Note Type Treatment Note Next Visit Plan review HEP Core bracing into flexion (add ppt if not-provocative) in supine and on tajik ball. trial stretching of QL, paraspinals. Hip 3 way. STS training, hip flexor stretch POC: improve hamstring and trunk muscle length
--- NOTE | 2023-12-04 12:04 | PT.OTN ---
Current Diagnoses Other chronic pain (12/04/23) Stiffness of right knee, not elsewhere classified (12/04/23) Stiffness of left knee, not elsewhere classified (12/04/23) Other specified dorsopathies, lumbosacral region (12/04/23) Weakness (12/04/23) Strain of muscle, fascia and tendon of lower back, initial encounter (12/04/23) Physical Therapy Treatment Note PT-OP-A Visit Information Start: 11/24/23 11:18 Freq: Status: Active Protocol: Document 12/04/23 11:18 NM (Rec: 12/04/23 12:04 NM [id number]) Out-Patient Physical Therapy Visit Information Visit Information Visit Type Treatment Note Visit Note KX after 19 visits Visit Start Time 11:20 Visit Stop Time 12:00 Visit Number 2 Evaluation Information Evaluation Date 11/24/23 Precautions Precautions scoliosis PT-OP-B Current Condition Start: 11/24/23 11:18 Freq: Status: Active Protocol: Document 11/24/23 11:19 NM (Rec: 11/24/23 12:20 NM [id number]) Current Condition History of Current Condition Onset Date a few weeks ago Current Complaints pain, limitations to ADLs/ IADLs History of Current Condition She reports a few weeks ago that she had a L sided low back pain, has L sided pain when making the bed. She felt like it caught and gave out . Thinks she was bending over and rotating to the R. She was unable to stand up straight afterward, took several weeks to be able to stand up. She reports that it took a few weeks to get better . She does a series of exercises every morning, which helped; unable to do them originally after injury. She reports performs them more abbreviated. Denies numbness/ tingling/burning with this incident. Pt reports possible neuropathy in B feet, states near toe and underneath at the ball of her feet. Hx of low back pain. Pt also reports a hx of chronic R hip pain. Denies changes to BLE strength since onset of pain, but does report changes in balance. She has family hx of muscle dystrophy that has late onset. Prior Treatments and Tests Radiograph 09/2021 lumbar spine : multilevel spondylosis at L4 -5 level PT-OP-C Subjective Start: 11/24/23 11:18 Freq: Status: Active Protocol: Document 12/04/23 11:18 NM (Rec: 12/04/23 12:04 NM [id number]) OP-PT Subjective Patient Comments Patient Comments Pt reports doing well since last session. Wants to go over exercises just to make sure she's doing them well. She reports no pain or soreness with exercise. States 2/10 in L low back, doing a lot better. She reports she now has dorsal L foot annoying discomfort over 1st toe, when she walks and sleeping; beginning over the last week; has had in the past. Reports bilateral PT-OP-E Functional Tests Start: 11/24/23 11:18 Freq: Status: Active Protocol: Document 11/24/23 11:19 NM (Rec: 11/24/23 12:20 NM [id number]) Functional Tests Other Forward Trunk Flexion Test Name of Test measured finger to floor Score 7 Comment uses hands to PT-OP-F Manual Assessment Start: 11/24/23 11:18 Freq: Status: Active Protocol: Document 11/24/23 11:19 NM (Rec: 11/24/23 12:20 NM [id number]) Manual Assessments Soft Tissue Assessment Soft Tissue Mobility Assessment Increased paraspinals and hip tightness along spine, especially R side due to scoliosis. B tight hamstrings. R scapular distance to spine 6 cm, 2 cm on L to medial scapular border Joint Mobility Assessment Joint Mobility Assessment Hypomobility of lumbar spine, slight rotation in lower lumbar spine. L lumbar curve. PT-OP-G Mobility & Gait Start: 11/24/23 11:18 Freq: Status: Active Protocol: Document 11/24/23 11:19 NM (Rec: 11/24/23 12:20 NM [id number]) OP Mobility Evaluation Transfers Sit to Stand without UE assistance but slight increase in back pain- 1 rep OP Gait Assessment Gait Gait Assistance Required: Independent Distance (Feet) 150 Gait Deviations General Gait Pattern Antalgic,Flexed Trunk,Lateral Trunk Lean Factors Limiting Gait Function Factors Limiting Gait Function Decreased Activity Tolerance, Decreased Sensation,Limited Range of Motion,Pain PT-OP-J Posture/Palpation/Skin Start: 11/24/23 11:18 Freq: Status: Active Protocol: Document 11/24/23 11:19 NM (Rec: 11/24/23 12:20 NM [id number]) Posture Evaluation Position Standing Head/C-Spine Posture Forward Head T-Spine Posture Fixed Scoliosis on (R) L-Spine Posture Flexible Scoliosis on (L) Shoulder Posture (L) Rounded,(R) Rounded,(R) Elevated Pelvis Posture Posterior Tilted,(R) Iliac Crest Superior Weight Distribution Balanced Hip Posture (L) Externally Rotated,(R) Externally Rotated Knee Posture (L) Genu Valgus,(R) Genu Valgus Comments Posture Comments R TS, L LS curve. R scap closer to spine R hip higher Palpation Assessment Location lumbar spine Palpation Details Tenderness along L SIJ, mild tenderness along paraspinals No tenderness but increased restrictions along paraspinals ; no tenderness to palpation with P-A springing of lumbar spinous processes Spinous processes curve to L with slight rotation PT-OP-K Range of Motion Start: 11/24/23 11:18 Freq: Status: Active Protocol: Document 11/24/23 11:19 NM (Rec: 11/24/23 12:20 NM [id number]) Lumbar Spine Range of Motion Lumbar Spine Active Percentage Flexion 90 Extension 100 Rotation Left 100 Rotation Right 100 Lateral Flexion Left 100 Lateral Flexion Right 75 Comments pain with flex and R LF Hip Goniometric Range of Motion Hip Right Internal Rotation 40 External Rotation 30 Left Internal Rotation 40 External Rotation 25 Knee Goniometric Range of Motion Knee Right Comments Hamstring length: 148 deg Left Comments Hamstring length: 140 deg PT-OP-L Special Tests Start: 11/24/23 11:18 Freq: Status: Active Protocol: Document 11/24/23 11:19 NM (Rec: 11/24/23 12:20 NM [id number]) Special Tests Lumbar Spine Special Tests Distraction Test Results + Badillo/quadrant Test Results + Comments R Straight Leg Raise Test Results + Slump Test Results - PT-OP-M Strength Start: 11/24/23 11:18 Freq: Status: Active Protocol: Document 11/24/23 11:19 NM (Rec: 11/24/23 12:20 NM [id number]) Trunk Strength Trunk Manual Muscle Testing Flexion 4 Good Extension 4 Good Rotation Left 4 Good Rotation Right 4 Good Lateral Flexion Left 4 Good Lateral Flexion Right 4 Good Comments Rotation painful Hip Strength Hip Manual Muscle Testing Right Flexion (L2) 4 Good Extension (S1) 4- Good- Abduction 4 Good Adduction 4- Good- External Rotation 4- Good- Internal Rotation 4- Good- Left Flexion (L2) 4- Good- Extension (S1) 3+ Fair+ Abduction 4- Good- Adduction 3+ Fair+ External Rotation 4- Good- Internal Rotation 4- Good- Comments mild pain with resisted ER Knee Strength Knee Manual Muscle Testing Left Flexion (S2) 4- Good- Extension (L3) 4- Good- Right Flexion (S2) 4- Good- Extension (L3) 4- Good- PT-OP-Q Treatments Start: 11/24/23 11:18 Freq: Status: Active Protocol: Document 12/04/23 11:18 NM (Rec: 12/04/23 12:04 NM [id number]) Therapeutic Exercises Supine Exercises TrA activation Supine Exercise Name 1. ppt w/ june, 2. BKFO Side bilateral Reps/Minutes 1. 2x10, 2. 10 Comments cued for level pelvis, breathwork; BKFO challenging w / TrA nestor stretch Side bilateral Reps/Minutes 60 Comments tight hip flexors B figure 4 stretch Supine Exercise Name with knee flexion (HEP review) Side bilateral Equipment Used towel Reps/Minutes 60 ea bridge Supine Exercise Name (HEP review)- band added to HEP (no HO) Side bilateral Resistance level 2 band at hips for abd Equipment Used with ppt Reps/Minutes 2x15 with 3 hold Comments pain free; cued for TrA during bridge hamstring dynamic mobilization Supine Exercise Name with nerve mobilization (HEP review) Side bilateral Equipment Used knee flex/ext with strap behind pt Reps/Minutes 60 ea Comments feels good Standing Exercises hip 3 way Standing Exercise Name hip abd, ext, flex (june) Side bilateral Resistance AROM > level 1 band at ankles Equipment Used with hand support Reps/Minutes 10 ea Comments pain free; cued core bracing PT-OP-T Assessment and Plan Start: 11/24/23 11:18 Freq: Status: Active Protocol: Document 12/04/23 11:18 NM (Rec: 12/04/23 12:04 NM [id number]) Physical Therapy Assessment Goals hamstring length Impairment L 140 deg, R 148 deg; trunk flexion 7 Short Term Goal (STG) Pt will improve B hamstring length to at least 155 deg in order to demonstrate improved muscle length for gait and less strain on trunk for ADLs STG Duration 6 weeks Group Home Goal (LTG) Pt will improve B hamstring length to at least 160 deg in order to demonstrate improved muscle length for gait and less strain on trunk for ADLs LTG Duration 10 weeks Oswestry Impairment 11/50 score Director Check Goal (LTG) Pt will decrease oswestry score to less than 10/50 in order to demonstrate improvement in symptoms, activity tolerance, and QOL LTG Duration 10 weeks Strength Impairment L hip strength impaired globally 3+ to 4-/5, trunk strength 4/5 Impairment Pt with 3+ to 4-/5 gross hip strength bilaterally. Short Term Goal (STG) Pt will improve L hip strength to at least 4/5 globally in order to provide increased lumbopelvic stability for gait and ADLs STG Duration 6 weeks Group Home Goal (LTG) Pt will improve B hip strength to at least 4+/5 globally and trunk strength to at least 5/ 5 in order to provide increased lumbopelvic stability for gait and ADLs LTG Duration 10 weeks 30 sec STS test Impairment pain reported with repetitive sit to stands, poor hip hinge Impairment Pt able to complete 8 STS squats in 30 seconds. Short Term Goal (STG) Pt will be able to perform at least 10 sit to stands from standard chair without compensation or increase in back pain and with good form in order to demonstrate improved body mechanics and BLE strength for transfers/ exercise STG Duration 4 weeks Group Home Goal (LTG) Pt will be able to perform at least 12 STS (15 norm for age) within 30 sec without increase in back pain and while maintaining good form in order to demonstrate improved body mechanics and BLE strength for transfers/ exercise LTG Duration 10 weeks Assessment Summary Assessment Pt tolerated session well without any increase in pain symptoms during session. Demos increased hamstring and hip flexor tightness, lessened observably with stretching but continues to have restrictions which likely limits ability to bend forward during ADLs. Reviewed HEP at pt request. Pt has difficulty with bracing core in supine, but able to maintain in standing with verbal cues. Initiated flexion biased core and hip strengthening. Pt with good feedback for hip 3 way with level 1 band, no trunk compensations with cueing. Pt would benefit from skilled PT for progressive mobility and strengthening of trunk and BLE for improved symptom management and ADL tolerance. Physical Therapy Plan Frequency and Duration Frequency of Treatment 1-2x/wk Duration of treatment (weeks) 10 Plan of Care Start Date 11/24/23 Plan of Care End Date 02/02/24 Therapeutic Interventions Therapeutic Interventions Balance Training,Gait Training ,Home Exercise Program,Joint Mobilizations,Manual Therapy, Neuromuscular Re-education, Orthotic/Prosthetic Management ,Patient/Caregiver Education, Self-Care/Home Management,Soft Tissue Mobilization,Taping, Therapeutic Activities, Therapeutic Exercises Modalities Cold Pack/Ice Massage,Electric Stimulation,Hot Packs Next Visit Focus/Plan Next Note Type Treatment Note Next Visit Plan (progress from bridge) STS with band, TrA review w/ flexion, Core bracing into flexion (add ppt if not-provocative) in supine and on norwegian ball. trial stretching of QL, paraspinals. Hip 3 way. STS training, hip flexor stretch POC: improve hamstring and trunk muscle length Manual tx prn to improve elongation of lumbar spine, hips w/ STM or gentle mob
--- NOTE | 2023-12-06 12:04 | PT.OTN ---
Current Diagnoses Other chronic pain (12/06/23) Stiffness of right knee, not elsewhere classified (12/06/23) Stiffness of left knee, not elsewhere classified (12/06/23) Other specified dorsopathies, lumbosacral region (12/06/23) Weakness (12/06/23) Strain of muscle, fascia and tendon of lower back, initial encounter (12/06/23) Physical Therapy Treatment Note PT-OP-A Visit Information Start: 11/24/23 11:18 Freq: Status: Active Protocol: Document 12/06/23 11:19 NM (Rec: 12/06/23 12:02 NM [id number]) Out-Patient Physical Therapy Visit Information Visit Information Visit Type Treatment Note Visit Note KX after 19 visits Visit Start Time 11:19 Visit Stop Time 11:59 Visit Number 3 Evaluation Information Evaluation Date 11/24/23 Precautions Precautions scoliosis PT-OP-B Current Condition Start: 11/24/23 11:18 Freq: Status: Active Protocol: Document 11/24/23 11:19 NM (Rec: 11/24/23 12:20 NM [id number]) Current Condition History of Current Condition Onset Date a few weeks ago Current Complaints pain, limitations to ADLs/ IADLs History of Current Condition She reports a few weeks ago that she had a L sided low back pain, has L sided pain when making the bed. She felt like it caught and gave out . Thinks she was bending over and rotating to the R. She was unable to stand up straight afterward, took several weeks to be able to stand up. She reports that it took a few weeks to get better . She does a series of exercises every morning, which helped; unable to do them originally after injury. She reports performs them more abbreviated. Denies numbness/ tingling/burning with this incident. Pt reports possible neuropathy in B feet, states near toe and underneath at the ball of her feet. Hx of low back pain. Pt also reports a hx of chronic R hip pain. Denies changes to BLE strength since onset of pain, but does report changes in balance. She has family hx of muscle dystrophy that has late onset. Prior Treatments and Tests Radiograph 09/2021 lumbar spine : multilevel spondylosis at L4 -5 level PT-OP-C Subjective Start: 11/24/23 11:18 Freq: Status: Active Protocol: Document 12/06/23 11:19 NM (Rec: 12/06/23 12:02 NM [id number]) OP-PT Subjective Patient Comments Patient Comments Pt reports no changes after last session but states that her L foot is better after performing some massage. Reports no soreness after last session. She reports no change 2/10 in her low back, usually with sitting and driving. PT-OP-E Functional Tests Start: 11/24/23 11:18 Freq: Status: Active Protocol: Document 11/24/23 11:19 NM (Rec: 11/24/23 12:20 NM [id number]) Functional Tests Other Forward Trunk Flexion Test Name of Test measured finger to floor Score 7 Comment uses hands to PT-OP-F Manual Assessment Start: 11/24/23 11:18 Freq: Status: Active Protocol: Document 11/24/23 11:19 NM (Rec: 11/24/23 12:20 NM [id number]) Manual Assessments Soft Tissue Assessment Soft Tissue Mobility Assessment Increased paraspinals and hip tightness along spine, especially R side due to scoliosis. B tight hamstrings. R scapular distance to spine 6 cm, 2 cm on L to medial scapular border Joint Mobility Assessment Joint Mobility Assessment Hypomobility of lumbar spine, slight rotation in lower lumbar spine. L lumbar curve. PT-OP-G Mobility & Gait Start: 11/24/23 11:18 Freq: Status: Active Protocol: Document 11/24/23 11:19 NM (Rec: 11/24/23 12:20 NM [id number]) OP Mobility Evaluation Transfers Sit to Stand without UE assistance but slight increase in back pain- 1 rep OP Gait Assessment Gait Gait Assistance Required: Independent Distance (Feet) 150 Gait Deviations General Gait Pattern Antalgic,Flexed Trunk,Lateral Trunk Lean Factors Limiting Gait Function Factors Limiting Gait Function Decreased Activity Tolerance, Decreased Sensation,Limited Range of Motion,Pain PT-OP-J Posture/Palpation/Skin Start: 11/24/23 11:18 Freq: Status: Active Protocol: Document 11/24/23 11:19 NM (Rec: 11/24/23 12:20 NM [id number]) Posture Evaluation Position Standing Head/C-Spine Posture Forward Head T-Spine Posture Fixed Scoliosis on (R) L-Spine Posture Flexible Scoliosis on (L) Shoulder Posture (L) Rounded,(R) Rounded,(R) Elevated Pelvis Posture Posterior Tilted,(R) Iliac Crest Superior Weight Distribution Balanced Hip Posture (L) Externally Rotated,(R) Externally Rotated Knee Posture (L) Genu Valgus,(R) Genu Valgus Comments Posture Comments R TS, L LS curve. R scap closer to spine R hip higher Palpation Assessment Location lumbar spine Palpation Details Tenderness along L SIJ, mild tenderness along paraspinals No tenderness but increased restrictions along paraspinals ; no tenderness to palpation with P-A springing of lumbar spinous processes Spinous processes curve to L with slight rotation PT-OP-K Range of Motion Start: 11/24/23 11:18 Freq: Status: Active Protocol: Document 11/24/23 11:19 NM (Rec: 11/24/23 12:20 NM [id number]) Lumbar Spine Range of Motion Lumbar Spine Active Percentage Flexion 90 Extension 100 Rotation Left 100 Rotation Right 100 Lateral Flexion Left 100 Lateral Flexion Right 75 Comments pain with flex and R LF Hip Goniometric Range of Motion Hip Right Internal Rotation 40 External Rotation 30 Left Internal Rotation 40 External Rotation 25 Knee Goniometric Range of Motion Knee Right Comments Hamstring length: 148 deg Left Comments Hamstring length: 140 deg PT-OP-L Special Tests Start: 11/24/23 11:18 Freq: Status: Active Protocol: Document 11/24/23 11:19 NM (Rec: 11/24/23 12:20 NM [id number]) Special Tests Lumbar Spine Special Tests Distraction Test Results + Badillo/quadrant Test Results + Comments R Straight Leg Raise Test Results + Slump Test Results - PT-OP-M Strength Start: 11/24/23 11:18 Freq: Status: Active Protocol: Document 11/24/23 11:19 NM (Rec: 11/24/23 12:20 NM [id number]) Trunk Strength Trunk Manual Muscle Testing Flexion 4 Good Extension 4 Good Rotation Left 4 Good Rotation Right 4 Good Lateral Flexion Left 4 Good Lateral Flexion Right 4 Good Comments Rotation painful Hip Strength Hip Manual Muscle Testing Right Flexion (L2) 4 Good Extension (S1) 4- Good- Abduction 4 Good Adduction 4- Good- External Rotation 4- Good- Internal Rotation 4- Good- Left Flexion (L2) 4- Good- Extension (S1) 3+ Fair+ Abduction 4- Good- Adduction 3+ Fair+ External Rotation 4- Good- Internal Rotation 4- Good- Comments mild pain with resisted ER Knee Strength Knee Manual Muscle Testing Left Flexion (S2) 4- Good- Extension (L3) 4- Good- Right Flexion (S2) 4- Good- Extension (L3) 4- Good- PT-OP-Q Treatments Start: 11/24/23 11:18 Freq: Status: Active Protocol: Document 12/06/23 11:19 NM (Rec: 12/06/23 12:02 NM [id number]) Therapeutic Exercises Supine Exercises TrA activation Supine Exercise Name 1. BKFO, 2. june from Side bilateral Reps/Minutes 1. 10 ea, 2. 10 ea Comments cued for breathwork and neutral spine nestor stretch Supine Exercise Name HEP review Side bilateral Reps/Minutes 60 Comments tight hip flexors B hamstring dynamic mobilization Supine Exercise Name with nerve mobilization Side bilateral Equipment Used knee flex/ext with strap behind pt Reps/Minutes 60 ea Comments following manual tx Sidelying Exercises taiwanese ball Sidelying Exercise Name HEP: 1. ant/post pelvic tilts, 2. QL stretch Side bilateral Reps/Minutes 1. 10, 2. 10x3 ea Comments reports good stretch, edu to trial before getting out of car hip abduction Sidelying Exercise Name with DF and hip IR Side bilateral Resistance AROM Equipment Used pillow under hips Reps/Minutes 12 ea Comments cued to limit post hip rot, hip ext Manual Therapy Treatment Consent Patient gave verbal consent for manual Yes treatment Soft Tissue Mobilization glutes/hamstring Body Location B Mobilization Type Rolling,Strumming Intensity/Depth Moderate Body Position Prone Comments Pt lying in prone with pillows under legs. Performed moderate distal > proximal mobilization, L HS more restricted than R lumbar spine Body Location paraspinals, QL Mobilization Type Rolling,Strumming Intensity/Depth Moderate Body Position Prone Comments Pt lying in prone with pillows under her legs. Superficial > moderate rolling and strumming, L more restricted and achy than R. reduced with soft tissue mobilization Educated on performing at home with racquetball or tennis ball PT-OP-T Assessment and Plan Start: 11/24/23 11:18 Freq: Status: Active Protocol: Document 12/06/23 11:19 NM (Rec: 12/06/23 12:02 NM [id number]) Physical Therapy Assessment Goals hamstring length Impairment L 140 deg, R 148 deg; trunk flexion 7 Short Term Goal (STG) Pt will improve B hamstring length to at least 155 deg in order to demonstrate improved muscle length for gait and less strain on trunk for ADLs STG Duration 6 weeks Skilled Nursing Goal (LTG) Pt will improve B hamstring length to at least 160 deg in order to demonstrate improved muscle length for gait and less strain on trunk for ADLs LTG Duration 10 weeks Oswestry Impairment 11/50 score Engraver Block Goal (LTG) Pt will decrease oswestry score to less than 10/50 in order to demonstrate improvement in symptoms, activity tolerance, and QOL LTG Duration 10 weeks Strength Impairment L hip strength impaired globally 3+ to 4-/5, trunk strength 4/5 Impairment Pt with 3+ to 4-/5 gross hip strength bilaterally. Short Term Goal (STG) Pt will improve L hip strength to at least 4/5 globally in order to provide increased lumbopelvic stability for gait and ADLs STG Duration 6 weeks Engraver Block Goal (LTG) Pt will improve B hip strength to at least 4+/5 globally and trunk strength to at least 5/ 5 in order to provide increased lumbopelvic stability for gait and ADLs LTG Duration 10 weeks 30 sec STS test Impairment pain reported with repetitive sit to stands, poor hip hinge Impairment Pt able to complete 8 STS squats in 30 seconds. Short Term Goal (STG) Pt will be able to perform at least 10 sit to stands from standard chair without compensation or increase in back pain and with good form in order to demonstrate improved body mechanics and BLE strength for transfers/ exercise STG Duration 4 weeks Engraver Block Goal (LTG) Pt will be able to perform at least 12 STS (15 norm for age) within 30 sec without increase in back pain and while maintaining good form in order to demonstrate improved body mechanics and BLE strength for transfers/ exercise LTG Duration 10 weeks Assessment Summary Assessment Pt tolerated session well, no increase in low back pain. Good progression to 90/90 marches with core activation, cues for breathwork which improves muscle activation and form. Trialed sidelying hip abduction to improve lumbopelvic stability; pt requires moderate cues for correct execution but able to perform without pain. Demos increased QL tightness bilaterally, reduced with stretching. Educated to trial pelvic mobility activities to reduce stiffness before getting out of car or if sitting. Good tolerance for soft tissue mobilization today , reports reduction in pain levels and states no pain at end of session following manual treatment. Pt would benefit from skilled PT for flexibility and strengthening in order to improve symptom management and ability to perform ADLs. Physical Therapy Plan Frequency and Duration Frequency of Treatment 1-2x/wk Duration of treatment (weeks) 10 Plan of Care Start Date 11/24/23 Plan of Care End Date 02/02/24 Therapeutic Interventions Therapeutic Interventions Balance Training,Gait Training ,Home Exercise Program,Joint Mobilizations,Manual Therapy, Neuromuscular Re-education, Orthotic/Prosthetic Management ,Patient/Caregiver Education, Self-Care/Home Management,Soft Tissue Mobilization,Taping, Therapeutic Activities, Therapeutic Exercises Modalities Cold Pack/Ice Massage,Electric Stimulation,Hot Packs Next Visit Focus/Plan Next Note Type Treatment Note Next Visit Plan ask tolerance for sidelying hip abd, pelvic tilt/stretch for car hip 3 way w/ core, STS with band, TrA review w/ flexion, carries, dying bug, pallof Core bracing into flexion (add ppt if not-provocative) in supine and on taiwanese ball. trial stretching of QL, paraspinals. Hip 3 way. STS training, hip flexor stretch POC: improve hamstring and trunk muscle length Manual tx prn to improve elongation of lumbar spine, hips w/ STM or gentle mob
--- NOTE | 2023-12-15 12:17 | PT-OP ANOTE ---
Addendum entered and electronically signed by Lexie Barragan PTA 12/15/23 12:21: Pt did give >24 hr notice as directed. Original Note: Pt cancelled last 2 appts via text with no reason given. WHEEL LOADER OPERATOR called and left message wanting to be sure ok and appreciate reasoning if possible if can help support attendance and progression to return to PLOF activities. Reminded next appt on 12/17 at 1115.
--- NOTE | 2023-12-18 12:05 | PT.OTN ---
Current Diagnoses Other chronic pain (12/18/23) Stiffness of right knee, not elsewhere classified (12/18/23) Stiffness of left knee, not elsewhere classified (12/18/23) Other specified dorsopathies, lumbosacral region (12/18/23) Weakness (12/18/23) Strain of muscle, fascia and tendon of lower back, initial encounter (12/18/23) Physical Therapy Treatment Note PT-OP-A Visit Information Start: 11/24/23 11:18 Freq: Status: Active Protocol: Document 12/18/23 11:18 NM (Rec: 12/18/23 12:05 NM [id number]) Out-Patient Physical Therapy Visit Information Visit Information Visit Type Treatment Note Visit Note KX after 19 visits Visit Start Time 11:19 Visit Stop Time 12:59 Visit Number 4 Evaluation Information Evaluation Date 11/24/23 Precautions Precautions scoliosis PT-OP-B Current Condition Start: 11/24/23 11:18 Freq: Status: Active Protocol: Document 11/24/23 11:19 NM (Rec: 11/24/23 12:20 NM [id number]) Current Condition History of Current Condition Onset Date a few weeks ago Current Complaints pain, limitations to ADLs/ IADLs History of Current Condition She reports a few weeks ago that she had a L sided low back pain, has L sided pain when making the bed. She felt like it caught and gave out . Thinks she was bending over and rotating to the R. She was unable to stand up straight afterward, took several weeks to be able to stand up. She reports that it took a few weeks to get better . She does a series of exercises every morning, which helped; unable to do them originally after injury. She reports performs them more abbreviated. Denies numbness/ tingling/burning with this incident. Pt reports possible neuropathy in B feet, states near toe and underneath at the ball of her feet. Hx of low back pain. Pt also reports a hx of chronic R hip pain. Denies changes to BLE strength since onset of pain, but does report changes in balance. She has family hx of muscle dystrophy that has late onset. Prior Treatments and Tests Radiograph 09/2021 lumbar spine : multilevel spondylosis at L4 -5 level PT-OP-C Subjective Start: 11/24/23 11:18 Freq: Status: Active Protocol: Document 12/18/23 11:18 NM (Rec: 12/18/23 12:05 NM [id number]) OP-PT Subjective Patient Comments Patient Comments Pt reports that she is doing well, she has is having minimal hip pain. States /, stretching is helping a lot. Pt requesting d/c today since sister is sick and will need to help her in another state PT-OP-E Functional Tests Start: 11/24/23 11:18 Freq: Status: Active Protocol: Document 11/24/23 11:19 NM (Rec: 11/24/23 12:20 NM [id number]) Functional Tests Other Forward Trunk Flexion Test Name of Test measured finger to floor Score 7 Comment uses hands to PT-OP-F Manual Assessment Start: 11/24/23 11:18 Freq: Status: Active Protocol: Document 11/24/23 11:19 NM (Rec: 11/24/23 12:20 NM [id number]) Manual Assessments Soft Tissue Assessment Soft Tissue Mobility Assessment Increased paraspinals and hip tightness along spine, especially R side due to scoliosis. B tight hamstrings. R scapular distance to spine 6 cm, 2 cm on L to medial scapular border Joint Mobility Assessment Joint Mobility Assessment Hypomobility of lumbar spine, slight rotation in lower lumbar spine. L lumbar curve. PT-OP-G Mobility & Gait Start: 11/24/23 11:18 Freq: Status: Active Protocol: Document 11/24/23 11:19 NM (Rec: 11/24/23 12:20 NM [id number]) OP Mobility Evaluation Transfers Sit to Stand without UE assistance but slight increase in back pain- 1 rep OP Gait Assessment Gait Gait Assistance Required: Independent Distance (Feet) 150 Gait Deviations General Gait Pattern Antalgic,Flexed Trunk,Lateral Trunk Lean Factors Limiting Gait Function Factors Limiting Gait Function Decreased Activity Tolerance, Decreased Sensation,Limited Range of Motion,Pain PT-OP-J Posture/Palpation/Skin Start: 11/24/23 11:18 Freq: Status: Active Protocol: Document 11/24/23 11:19 NM (Rec: 11/24/23 12:20 NM [id number]) Posture Evaluation Position Standing Head/C-Spine Posture Forward Head T-Spine Posture Fixed Scoliosis on (R) L-Spine Posture Flexible Scoliosis on (L) Shoulder Posture (L) Rounded,(R) Rounded,(R) Elevated Pelvis Posture Posterior Tilted,(R) Iliac Crest Superior Weight Distribution Balanced Hip Posture (L) Externally Rotated,(R) Externally Rotated Knee Posture (L) Genu Valgus,(R) Genu Valgus Comments Posture Comments R TS, L LS curve. R scap closer to spine R hip higher Palpation Assessment Location lumbar spine Palpation Details Tenderness along L SIJ, mild tenderness along paraspinals No tenderness but increased restrictions along paraspinals ; no tenderness to palpation with P-A springing of lumbar spinous processes Spinous processes curve to L with slight rotation PT-OP-K Range of Motion Start: 11/24/23 11:18 Freq: Status: Active Protocol: Document 11/24/23 11:19 NM (Rec: 11/24/23 12:20 NM [id number]) Lumbar Spine Range of Motion Lumbar Spine Active Percentage Flexion 90 Extension 100 Rotation Left 100 Rotation Right 100 Lateral Flexion Left 100 Lateral Flexion Right 75 Comments pain with flex and R LF Hip Goniometric Range of Motion Hip Right Internal Rotation 40 External Rotation 30 Left Internal Rotation 40 External Rotation 25 Knee Goniometric Range of Motion Knee Right Comments Hamstring length: 148 deg Left Comments Hamstring length: 140 deg PT-OP-L Special Tests Start: 11/24/23 11:18 Freq: Status: Active Protocol: Document 11/24/23 11:19 NM (Rec: 11/24/23 12:20 NM [id number]) Special Tests Lumbar Spine Special Tests Distraction Test Results + Badillo/quadrant Test Results + Comments R Straight Leg Raise Test Results + Slump Test Results - PT-OP-M Strength Start: 11/24/23 11:18 Freq: Status: Active Protocol: Document 11/24/23 11:19 NM (Rec: 11/24/23 12:20 NM [id number]) Trunk Strength Trunk Manual Muscle Testing Flexion 4 Good Extension 4 Good Rotation Left 4 Good Rotation Right 4 Good Lateral Flexion Left 4 Good Lateral Flexion Right 4 Good Comments Rotation painful Hip Strength Hip Manual Muscle Testing Right Flexion (L2) 4 Good Extension (S1) 4- Good- Abduction 4 Good Adduction 4- Good- External Rotation 4- Good- Internal Rotation 4- Good- Left Flexion (L2) 4- Good- Extension (S1) 3+ Fair+ Abduction 4- Good- Adduction 3+ Fair+ External Rotation 4- Good- Internal Rotation 4- Good- Comments mild pain with resisted ER Knee Strength Knee Manual Muscle Testing Left Flexion (S2) 4- Good- Extension (L3) 4- Good- Right Flexion (S2) 4- Good- Extension (L3) 4- Good- PT-OP-Q Treatments Start: 11/24/23 11:18 Freq: Status: Active Protocol: Document 12/18/23 11:18 NM (Rec: 12/18/23 12:05 NM [id number]) Therapeutic Exercises Supine Exercises figure 4 stretch Supine Exercise Name with knee flexion (HEP review) Side bilateral Equipment Used towel Reps/Minutes 2x30 ea hamstring dynamic mobilization Supine Exercise Name with nerve mobilization Side bilateral Equipment Used knee flex/ext with strap behind pt Reps/Minutes 20x3 hold ea Comments following manual tx Sitting Exercises sit to stand Sitting Exercise Name HEP Side bilateral Resistance AROM Reps/Minutes 1. 5 STS for practice, 2. 10 in 30 sec, 3. for form 5 w/ ant shift Standing Exercises lat pull down Standing Exercise Name straight arm Side bilateral Resistance level 3 green Reps/Minutes 3x10 Comments cued for form but improved w/ reps pallof Standing Exercise Name 1. press, 2. walkout Side bilateral Resistance level 1 band Reps/Minutes 1. 20 ea side, 2. 10 ea Comments cued for form, improved w/ reps hip 3 way Standing Exercise Name HEP- hip ext, hip abd, hip flex (june) Side bilateral Resistance level 2 band at ankles Equipment Used with hand support Reps/Minutes 15 ea Comments pain free; cued core bracing Other Exercises self soft tissue mobilization Other Exercise Name HS Side bilateral Equipment Used rolling pin Reps/Minutes 10 rolls ea leg Comments educated on use at home before HS mobilization PT-OP-T Assessment and Plan Start: 11/24/23 11:18 Freq: Status: Active Protocol: Document 12/18/23 11:18 NM (Rec: 12/18/23 12:05 NM [id number]) Physical Therapy Assessment Goals hamstring length Impairment L 140 deg, R 148 deg; trunk flexion 7 Short Term Goal (STG) Pt will improve B hamstring length to at least 155 deg in order to demonstrate improved muscle length for gait and less strain on trunk for ADLs 12/18/23: 160 deg R, 150 deg L STG Duration 6 weeks Logistics Supervisor Goal (LTG) Pt will improve B hamstring length to at least 160 deg in order to demonstrate improved muscle length for gait and less strain on trunk for ADLs 12/18/23: 160 deg R, 150 deg L LTG Duration 10 weeks PARTIALLY MET Oswestry Impairment 11/50 score Jail Goal (LTG) Pt will decrease oswestry score to less than 10/50 in order to demonstrate improvement in symptoms, activity tolerance, and QOL 12/18/23: 5/50 LTG Duration 10 weeks MET Strength Impairment L hip strength impaired globally 3+ to 4-/5, trunk strength 4/5 Impairment Pt with 3+ to 4-/5 gross hip strength bilaterally. Short Term Goal (STG) Pt will improve L hip strength to at least 4/5 globally in order to provide increased lumbopelvic stability for gait and ADLs 12/18/23: 4/5 for all w/o pain STG Duration 6 weeks MET Logistics Supervisor Goal (LTG) Pt will improve B hip strength to at least 4+/5 globally and trunk strength to at least 5/ 5 in order to provide increased lumbopelvic stability for gait and ADLs 12/18/23: 4/5 for all w/o pain LTG Duration 10 weeks NOT MET 30 sec STS test Impairment pain reported with repetitive sit to stands, poor hip hinge Impairment Pt able to complete 8 STS squats in 30 seconds. Short Term Goal (STG) Pt will be able to perform at least 10 sit to stands from standard chair without compensation or increase in back pain and with good form in order to demonstrate improved body mechanics and BLE strength for transfers/ exercise 12/18/23: 10 STS w/o pain but improved form STG Duration 4 weeks MET Logistics Supervisor Goal (LTG) Pt will be able to perform at least 12 STS (15 norm for age) within 30 sec without increase in back pain and while maintaining good form in order to demonstrate improved body mechanics and BLE strength for transfers/ exercise 12/18/23: 10 STS w/o pain but improved form LTG Duration 10 weeks NOT MET Progress Towards Goals Progress Towards Goals Progressing Toward Goals,Goals Met Progress Comments Did not meet LTGs but met STGs Assessment Summary Assessment Pt tolerated session well. Emphasis on strengthening and establishing maintenance HEP. Educated pt on hamstring self soft tissue mobilization, recommended performing prior to HS mobilization with towel. Continued with hip 3 way to promote hip strengthening; progressed band resistance without compensations in pt trunk form, although challenging. Progressed to both pallof walkout and pallof press to facilitate greater trunk/core strengthening during standing ADLs. Good form with all activities, requiring minimal cues that improved with reps. Physical Therapy Plan Frequency and Duration Frequency of Treatment 1-2x/wk Duration of treatment (weeks) 10 Plan of Care Start Date 11/24/23 Plan of Care End Date 02/02/24 Therapeutic Interventions Therapeutic Interventions Balance Training,Gait Training ,Home Exercise Program,Joint Mobilizations,Manual Therapy, Neuromuscular Re-education, Orthotic/Prosthetic Management ,Patient/Caregiver Education, Self-Care/Home Management,Soft Tissue Mobilization,Taping, Therapeutic Activities, Therapeutic Exercises Modalities Cold Pack/Ice Massage,Electric Stimulation,Hot Packs Discharge Physical Therapy Discharge Reasons Patient Request Discharge Comments Pt requesting d/c today due to progress made and to assist sick sister out of state Next Visit Focus/Plan Next Visit Plan discharge from PT
== END 2023-12-29 09:53 | disposition home or self-care (01) ==
LOC: PHYS 11:15
PROVIDERS: Family Provider Family Medicine; PCP Family Medicine; Referring Provider Family Medicine; Visit Provider Family Medicine
DX: S39.012A Strain of muscle, fascia and tendon of lower back, initial encounter (principal); G89.29 Other chronic pain; M53.87 Other specified dorsopathies, lumbosacral region; R53.1 Weakness; M25.662 Stiffness of left knee, not elsewhere classified; M25.661 Stiffness of right knee, not elsewhere classified
CPT/HCPCS: 97110; 97140; 97161

== ENCOUNTER → 2024-01-11 14:46 | Outpatient (CLI) | payer MEDICARE, OTHER, SELFPAY ==
--- NOTE | 2024-01-11 14:47 | DI.MG.S_ITS ---
BILATERAL DIGITAL SCREENING MAMMOGRAM 3D/2D WITH CAD: 01/11/2024 CLINICAL: Routine screening. Family history of breast cancer. Comparison is made to exams dated: 11/02/2021 mammogram, 05/17/2019 mammogram, and 01/10/2017 mammogram - [facility]. The breasts are heterogeneously dense, which may obscure small masses (category c / 51-75% glandular tissue). Current study was also evaluated with a Computer Aided Detection (CAD) system. No significant masses, calcifications, or other findings are seen in either breast. There has been no significant interval change. IMPRESSION: NEGATIVE There is no mammographic evidence of malignancy. A 1 year screening mammogram is recommended. Based on the Tyrer Cuzick model (a risk assessment model) the patient's lifetime risk is 17.5% and her 10 year risk is 9.4%. According to the ACR, ACS, and NCCN guidelines, an annual breast MRI exam along with mammogram is recommended if the patient's lifetime risk is 20% or greater. This exam was interpreted at Station ID: [id number]. NOTE: For mammograms, a report in lay terms will be sent to the patient. Approximately 15% of breast malignancies will not be visualized mammographically. In the management of a palpable breast mass, a negative mammogram must not discourage biopsy of a clinically suspicious lesion. Electronically Signed By: Mark fernández/demetrius:01/12/2024 08:10:25 letter sent: Normal Exam ACR BI-RADS Category 1: Negative
== END ==
LOC: MAMMO 14:46
PROVIDERS: Family Provider Family Medicine; PCP Family Medicine; Referring Provider Family Medicine; Visit Provider Family Medicine
DX: Z12.31 Encounter for screening mammogram for malignant neoplasm of breast (principal); Z80.3 Family history of malignant neoplasm of breast; R92.333 Mammographic heterogeneous density, bilateral breasts
CPT/HCPCS: 77063; 77067

== ENCOUNTER → 2024-05-18 08:18 | Outpatient (CLI) | payer MEDICARE, OTHER, SELFPAY ==
[2024-05-18 09:30] LABS: Alanine Aminotransferase 22 IU/L (<35); Albumin 4.1 g/dL (3.5-5.0); Albumin Globulin Ratio 1.7 (1.0-2.8); Alkaline Phosphatase 66 U/L (38-126); Aspartate Aminotransferase 24 IU/L (14-36); Blood Urea Nitrogen 15 mg/dL (7-17); Calcium 9.6 mg/dL (8.4-10.2); Carbon Dioxide 31 mmol/L (22-32); Chloride 105 mmol/L (98-107); Estimated Glomerular Filt Rate > 60 mL/min (>60); Globulin 2.4 g/dL (1.7-4.1); Glucose 99 mg/dL (80-110); HEMOLYSIS < 15 (0-50); Potassium 4.9 mmol/L (3.4-5.1); Sodium 139 mmol/L (137-145); Total Protein 6.5 g/dL (6.3-8.2)
[2024-05-18 09:58] LABS: TSH w/ Reflex to FT4 2.72 uIU/mL (0.47-4.68)
== END ==
PROVIDERS: Family Provider Family Medicine; PCP Family Medicine; Referring Provider Family Medicine; Visit Provider Family Medicine
DX: Z00.00 Encounter for general adult medical examination without abnormal findings (principal); E78.5 Hyperlipidemia, unspecified
CPT/HCPCS: 36415; 80053; 84443

== ENCOUNTER → 2024-06-21 09:11 | Outpatient (CLI) | payer MEDICARE, OTHER, SELFPAY | LOC: LAB 09:12 | PROVIDERS: Family Provider Family Medicine; PCP Family Medicine; Referring Provider Family Medicine; Visit Provider Family Medicine | DX: Z71.85 Encounter for immunization safety counseling (principal); R21 Rash and other nonspecific skin eruption | CPT/HCPCS: 36415; 86765 ==

== ENCOUNTER → 2024-09-27 06:33 | Outpatient (CLI) | payer MEDICARE, OTHER, SELFPAY ==
[2024-09-27 07:46] LABS: Add Manual Diff / Slide Review NO; Basophils Absolute Auto 100 /uL (0-100); Eosinophils Absolute Auto 200 /uL (0-450); Eosinophils Percent Auto 3.9 % (2-4); Hematocrit 38.7 % (36-46); Hemoglobin 12.8 g/dL (12.0-16.0); Lymphocytes Absolute Auto 1500 /uL (1100-4500); Lymphocytes Percent Auto 28.3 % (25-40); Mean Corpuscular HGB Conc 33.1 % (30-36); Mean Corpuscular Hemoglobin 30.2 PG (26-34); Mean Corpuscular Volume 91.3 fL (80-100); Monocytes Absolute Auto 500 /uL (0-900); Monocytes Percent Auto 10.1 % (3-14); Neutrophils Absolute Auto 3100 /uL (1500-7000); Neutrophils Percent Auto 56.7 % (50-75); Platelet Count 252 X10^3/uL (150-400); Red Blood Cell Count 4.23 X10^6/uL (4.0-5.2); Red Cell Distribution Width 14.2 % (11.6-14.8); White Blood Cell Count 5.4 X10^3/uL (4.5-11.0)
[2024-09-27 07:54] LABS: Hemoglobin A1C% w Est Avg Glu 5.5 % (4.0-6.0)
[2024-09-27 08:05] LABS: Alanine Aminotransferase 20 IU/L (<35); Albumin 4.3 g/dL (3.5-5.0); Albumin Globulin Ratio 1.7 (1.0-2.8); Alkaline Phosphatase 69 U/L (38-126); Aspartate Aminotransferase 23 IU/L (14-36); BUN Creatinine Ratio 24.7 (6-22); Bilirubin Total 0.8 mg/dL (0.2-1.3); Blood Urea Nitrogen 19 mg/dL (7-17); Calcium 9.5 mg/dL (8.4-10.2); Carbon Dioxide 30 mmol/L (22-32); Chloride 103 mmol/L (98-107); Cholesterol 259 mg/dL (140-199); Estimated Glomerular Filt Rate > 60 mL/min (>60); Globulin 2.5 g/dL (1.7-4.1); Glucose 90 mg/dL (70-99); HDL Cholesterol 90 mg/dL (40-60); HEMOLYSIS < 15 (0-50); LDL Cholesterol Calculated 156 mg/dL (<100); Potassium 4.4 mmol/L (3.4-5.1); Sodium 137 mmol/L (137-145); Total Protein 6.8 g/dL (6.3-8.2); Triglycerides 67 mg/dL (35-150)
== END ==
PROVIDERS: Family Provider Family Medicine; PCP Family Medicine; Referring Provider Family Medicine; Visit Provider Family Medicine
DX: R73.03 Prediabetes (principal); E78.5 Hyperlipidemia, unspecified; K21.9 Gastro-esophageal reflux disease without esophagitis
CPT/HCPCS: 36415; 80053; 80061; 83036; 85025

== ENCOUNTER → 2024-10-14 12:06 | Outpatient (CLI) | payer MEDICARE, OTHER, SELFPAY ==
--- NOTE | 2024-10-14 12:07 | DI.RAD.S_ITS ---
PROCEDURE: XR DEXA AXIAL SKELETON INDICATIONS: screening COMPARISON: None. FINDINGS: Lumbar Spine: Bone mineral density 0.855 g/cm2, T score -1.7. Left Femoral Neck: Bone mineral density 0.717 g/cm2, T score -1.2. Left Hip: Bone mineral density 0.846 g/cm2, T score -0.8. Fracture Risk Calculation (when applicable): 10-year fracture risk of a major osteoporotic fracture 7.9 percent and of a hip fracture 0.9 percent. (T score greater or equal to -1.0 to: NORMAL) (T score from -1.1 to -2.4: OSTEOPENIA) (T score less than or equal to -2.5: OSTEOPOROSIS) IMPRESSION: Osteopenia--- recommend repeat DEXA in 2-3 years for reassessment. Follow-up guidelines as follows: Osteoporosis: Consider a repeat DEXA and Vertebral Fracture Assessment (VFA) exam in 2 years or sooner if medically necessary, to reassess this patient's status. Osteopenia: Consider a repeat DEXA in 2-3 years to reassess this patient's status, or if there is a new clinical indication. Normal: Consider a repeat DEXA in 5 years or sooner, or if there is a new clinical indication. All treatment decisions require clinical judgment and consideration of individual patient factors, including patient preferences, comorbidities, previous drug use, risk factors not captured in the FRAX model (e.g., frailty, falls, vitamin D deficiency, increased bone turnover, interval significant decline in bone density ) and possible under- or over-estimation of fracture risk by FRAX. In addition, the NOF Guide recommends that FDA-approved medical therapies be considered in postmenopausal women and men age >= 50 years with a: * Hip or vertebral (clinical or morphometric) fracture * T-score of <=-2.5 at the spine or hip * Ten-year fracture probability by FRAX of >= 3% for hip fracture or >=20% for major osteoporotic fracture. Dictated by: Meliton Perla M.D. on 10/14/2024 at 18:33 Approved by: Meliton Perla M.D. on 10/14/2024 at 18:41
== END ==
PROVIDERS: PCP Family Medicine; Referring Provider Family Medicine; Visit Provider Family Medicine
DX: M85.89 Other specified disorders of bone density and structure, multiple sites (principal)
CPT/HCPCS: 77080

== ENCOUNTER → 2025-01-27 08:18 | Outpatient (CLI) | payer MEDICARE, OTHER, SELFPAY ==
--- NOTE | 2025-01-27 08:20 | DI.MG.S_ITS ---
MM screening mammo BI: 01/27/2025. BI-RADS: 1 CLINICAL: 69-year old female for bilateral screening mammogram. Tyrer-Cuzick lifetime risk of 8.1%. No personal or first-degree family history of breast cancer. Current reported family history of breast cancer: maternal grandmother and paternal grandmother. PRIOR EXAMS 01/11/2024, 11/02/2021, 05/17/2019, 01/10/2017. MAMMOGRAPHY TECHNIQUE: 2D and 3D (tomosynthesis) digital mammographic views obtained, with additional images as needed for full coverage. Current study was also evaluated with a Computer Aided Detection (CAD) system. DENSITY C. The breasts are heterogeneously dense, which may obscure small masses. MAMMOGRAPHY FINDINGS Bilateral: No suspicious mass, asymmetry, microcalcification, or other abnormality seen. IMPRESSION: * No evidence of malignancy. RECOMMENDATIONS Bilateral * Annual screening mammography. OVERALL ASSESSMENT CATEGORY BI-RADS-1: Negative. The [employer] recommends annual screening mammography beginning at age 40 for women with average risk of breast cancer. ELECTRONICALLY SIGNED: Radha Klein M.D. on 01/27/2025 at 12:22:32 PM PT Interpreting Station ID: [id number]
== END ==
LOC: MAMMO 08:19
PROVIDERS: PCP Family Medicine; Referring Provider Family Medicine; Visit Provider Family Medicine
DX: Z12.31 Encounter for screening mammogram for malignant neoplasm of breast (principal); R92.333 Mammographic heterogeneous density, bilateral breasts; Z80.3 Family history of malignant neoplasm of breast
CPT/HCPCS: 77063; 77067

== ENCOUNTER → 2025-03-03 06:51 | Outpatient (CLI) | payer MEDICARE, OTHER, SELFPAY ==
[2025-03-03 07:54] LABS: Alanine Aminotransferase 21 IU/L (<35); Albumin 4.1 g/dL (3.5-5.0); Albumin Globulin Ratio 1.5 (1.0-2.8); Alkaline Phosphatase 75 U/L (38-126); Blood Urea Nitrogen 16 mg/dL (7-17); Calcium 9.2 mg/dL (8.4-10.2); Carbon Dioxide 29 mmol/L (22-32); Chloride 103 mmol/L (98-107); Cholesterol 248 mg/dL (140-199); Estimated Glomerular Filt Rate > 60 mL/min (>60); Globulin 2.8 g/dL (1.7-4.1); Glucose 92 mg/dL (70-99); HDL Cholesterol 85 mg/dL (40-60); HEMOLYSIS < 15 (0-50); Potassium 4.1 mmol/L (3.4-5.1); Sodium 139 mmol/L (137-145); Total Protein 6.9 g/dL (6.3-8.2); Triglycerides 101 mg/dL (35-150)
[2025-03-03 08:25] LABS: TSH w/ Reflex to FT4 3.59 uIU/mL (0.47-4.68)
== END ==
PROVIDERS: PCP Family Medicine; Referring Provider Family Medicine; Visit Provider Family Medicine
DX: R73.03 Prediabetes (principal); E78.5 Hyperlipidemia, unspecified
CPT/HCPCS: 36415; 80053; 80061; 84443